=== PATIENT | male | born 1955 | race Caucasian/White ===

== ENCOUNTER 2016-09-06 12:57 | Observation (INO) | payer MEDICARE ==
--- NOTE | 2016-09-06 13:59 | ED ---
General Adult HPI - General Chief complaint: Abdominal Pain Stated complaint: abd pain Source: patient, RN notes reviewed, old records reviewed Mode of arrival: wheelchair - History of Present Illness Initial comments: Chief complaint history of present illness a 60-year-old male who is been in the emergency room several times because of acute alcohol intoxication. He reports years ago he had an episode of renal shutdown. He states he feels as though his kidneys have quit today. Patient was just in hospital the past 36 hours and review of the labs on that day showed a normal BUN and creatinine and GFR. - Related Data Home Medications Medication Instructions Recorded Confirmed Atorvastatin [Lipitor] 10 mg PO HS 08/11/16 09/06/16 Previous Rx's Medication Instructions Recorded Metoprolol Tartrate [Lopressor] 25 mg PO BID #30 tab 08/12/16 Collagenase [Santyl] 1 applic TOPICAL DAILY #1 tube 08/13/16 Escitalopram [Lexapro] 10 mg PO DAILY #30 tablet 08/13/16 Lisinopril [Zestril] 10 mg PO DAILY tab 08/13/16 Omeprazole [PriLOSEC] 40 mg PO QAM #30 capsule.dr 08/13/16 traMADol HCl [Ultram] 50 mg PO QID PRN #0 tab 08/13/16 Doxycycline Hyclate 100 mg PO BID #10 tab 08/28/16 Thiamine [Vitamin B-1] 100 mg PO DAILY #30 tablet 08/28/16 amLODIPine [Norvasc] 5 mg PO DAILY #30 tab 08/28/16 Mag Hydrox/Al Hydrox/Simeth 30 ml PO TID 30 Days 08/31/16 [Maalox] Folic Acid 1 mg PO DAILY #30 tablet 09/04/16 Allergies Allergy/AdvReac Type Severity Reaction Status Date / Time No Known Allergies Allergy Verified 09/06/16 13:34 Review of Systems ROS Statement: Those systems with pertinent positive or pertinent negative responses have been documented in the HPI. Review of systems; patient reports she's not having anything to drink for the past 2 days. Eyes any seizures or shakes. Declines any medication on discharge that will help with withdrawal. Eyes any headache. States he has some discomfort to his right anterior chest wall with palpation. No nausea no vomiting no diarrhea at this time. Denies falling. All systems reviewed. Past medical problems significant for heart disease, alcoholism, I disorder, hypertension, hyperlipidemia, previous MS, chronic kidney disease, surgeries appendectomy and back surgery, left shoulder surgery and coronary bypass.. Also has a history of depression. Chronic alcohol abuse. ROS Other: All systems not noted in ROS Statement are negative. Past Medical History Past Medical History: Coronary Artery Disease (CAD), Eye Disorder, Hyperlipidemia, Hypertension, Myocardial Infarction (MS), Renal Disease Additional Past Medical History / Comment(s): Alcoholism, CKD stage II or III, gastritis, chronic cervical and back pain, R eye injury with surgery-limited sight. Last Myocardial Infarction Date:: june, History of Any Multi-Drug Resistant Organisms: None Reported Past Surgical History: Appendectomy, Back Surgery, Coronary Bypass/CABG, Orthopedic Surgery Additional Past Surgical History / Comment(s): L shoulder surgery, colonoscopy, R eye lens surgery due to injury. Per cardiology note from previous admission, patient ahd NSTEMI and cath with perforation of the RCA during PCI resulting in a single vessel bypass after pericardiocentesis-pt states he believes he had triple bypass. Past Anesthesia/Blood Transfusion Reactions: No Reported Reaction Past Psychological History: Depression Additional Psychological History / Comment(s): Pt currently is living with his son. He has a cane which he uses prn. He does not drive. He gets to [employer] by cab or his son takes him. Smoking Status: Current every day smoker Past Alcohol Use History: Daily Additional Past Alcohol Use History / Comment(s): Pt states he likes to drink a pint of vodka a day. He started smoking in 1969 and is a 1/2 ppd smoker. Past Drug Use History: Marijuana Additional Drug Use History / Comment(s): Pt states he smokes 1-2 joints per day for pain control. He states he has medical [employer] card. - Past Family History Father Family Medical History: Myocardial Infarction (MS) Additional Family Medical History / Comment(s): Father of a MS at the age of 71 yrs. Mother Family Medical History: Cancer Additional Family Medical History / Comment(s): Mother had breast cancer-bone cancer and at the age of 65 yrs. Course Vital Signs 09/06/16 09/06/16 09/06/16 13:05 13:59 15:40 Temperature 97.3 F L Pulse Rate 104 H 98 98 Respiratory 18 16 16 Rate Blood Pressure 107/84 109/81 119/92 O2 Sat by Pulse 100 100 100 Oximetry EKG Findings - EKG Comments: EKG Findings:: EKG was done and reviewed at 1537 showing normal sinus rhythm with minimal minimal voltage criteria for LVH, nonspecific ST-T wave changes. Rate 93 OK interval is 146 QRS [address] QT [address] Miramontes Medical Decision Making - Medical Decision Making Medical decision making patient white count 8.7015 hematocrit of 48, d-dimer and 0.3 for lower than it was 2 days ago. Potassium 5.1, patient's BUN/ creatinine available flow rate increased in the past 2 days currently BUN 29 creatinine 1.8 to the GFR 38. Glucose 100. AST ALT normal. Alk phos 157. Urine shows 16 whites and 1 red. Troponin 0.017. Unchanged over the last 3 draws over the past 2 days. Chest x-ray was done AP and lateral view radiologist findings are the heart is normal. Thoracic aorta is atheromatous. Lungs are clear consolidation. There is no heart failure. There are sternal wires. Bony thorax appears intact. Impression no acute cardiopulmonary disease. There is minimal scarring the lingula left upper lobe. No change. As read by Dr. Gallego The patient has a continued complaint of feeling like his kidneys aren't working. Today's kidney function are significantly different with acute on chronic renal failure. Patient be admitted for observation. - Lab Data Result diagrams: 09/06/16 13:55 09/06/16 13:55 Lab Results 09/06/16 09/06/16 09/06/16 Range/Units 13:55 13:55 13:55 WBC 8.7 (3.8-10.6) k/uL RBC 5.25 (4.30-5.90) m/uL Hgb 15.5 (13.0-17.5) gm/dL Hct 48.1 (39.0-53.0) % MCV 91.6 (80.0-100.0) fL MCH 29.6 (25.0-35.0) pg MCHC 32.3 (31.0-37.0) g/dL RDW 14.6 (11.5-15.5) % Plt Count 403 (150-450) k/uL Neutrophils % 70 % Lymphocytes % 21 % Monocytes % 6 % Eosinophils % 1 % Basophils % 0 % Neutrophils # 6.0 (1.3-7.7) k/uL Lymphocytes # 1.8 (1.0-4.8) k/uL Monocytes # 0.5 (0-1.0) k/uL Eosinophils # 0.1 (0-0.7) k/uL Basophils # 0.0 (0-0.2) k/uL D-Dimer (<0.60) mg/L FEU Sodium 138 (137-145) mmol/L Potassium 5.1 (3.5-5.1) mmol/L Chloride 98 (98-107) mmol/L Carbon Dioxide 20 L (22-30) mmol/L Anion Gap 20 mmol/L BUN 29 H (9-20) mg/dL Creatinine 1.82 H (0.66-1.25) mg/dL Est GFR (MDRD) Af Amer 46 (>60 ml/min/1.73 sqM) Est GFR (MDRD) Non-Af 38 (>60 ml/min/1.73 sqM) Glucose 100 H (74-99) mg/dL Calcium 10.1 (8.4-10.2) mg/dL Total Bilirubin 0.9 (0.2-1.3) mg/dL AST 70 H (17-59) U/L ALT 77 H (21-72) U/L Alkaline Phosphatase 157 H (38-126) U/L Troponin I 0.017 (0.000-0.034) ng/mL Total Protein 8.6 H (6.3-8.2) g/dL Albumin 4.7 (3.5-5.0) g/dL Urine Color Urine Appearance (Clear) Urine pH (5.0-8.0) Ur Specific [place] (1.001-1.035) Urine Protein (Negative) Urine Glucose (UA) (Negative) Urine Ketones (Negative) Urine Blood (Negative) Urine Nitrate (Negative) Urine Bilirubin (Negative) Urine Urobilinogen (<2.0) mg/dL Ur Leukocyte Esterase (Negative) Urine RBC (0-5) /hpf Urine WBC (0-5) /hpf Ur Squamous Epith Cells (0-4) /hpf Hyaline Casts (0-2) /lpf Urine Mucus (None) /hpf 09/06/16 09/06/16 Range/Units 13:55 14:21 WBC (3.8-10.6) k/uL RBC (4.30-5.90) m/uL Hgb (13.0-17.5) gm/dL Hct (39.0-53.0) % MCV (80.0-100.0) fL MCH (25.0-35.0) pg MCHC (31.0-37.0) g/dL RDW (11.5-15.5) % Plt Count (150-450) k/uL Neutrophils % % Lymphocytes % % Monocytes % % Eosinophils % % Basophils % % Neutrophils # (1.3-7.7) k/uL Lymphocytes # (1.0-4.8) k/uL Monocytes # (0-1.0) k/uL Eosinophils # (0-0.7) k/uL Basophils # (0-0.2) k/uL D-Dimer 1.34 H (<0.60) mg/L FEU Sodium (137-145) mmol/L Potassium (3.5-5.1) mmol/L Chloride (98-107) mmol/L Carbon Dioxide (22-30) mmol/L Anion Gap mmol/L BUN (9-20) mg/dL Creatinine (0.66-1.25) mg/dL Est GFR (MDRD) Af Amer (>60 ml/min/1.73 sqM) Est GFR (MDRD) Non-Af (>60 ml/min/1.73 sqM) Glucose (74-99) mg/dL Calcium (8.4-10.2) mg/dL Total Bilirubin (0.2-1.3) mg/dL AST (17-59) U/L ALT (21-72) U/L Alkaline Phosphatase (38-126) U/L Troponin I (0.000-0.034) ng/mL Total Protein (6.3-8.2) g/dL Albumin (3.5-5.0) g/dL Urine Color Yellow Urine Appearance Cloudy (Clear) Urine pH 5.5 (5.0-8.0) Ur Specific [place] 1.013 (1.001-1.035) Urine Protein 1+ H (Negative) Urine Glucose (UA) Negative (Negative) Urine Ketones Trace H (Negative) Urine Blood Negative (Negative) Urine Nitrate Negative (Negative) Urine Bilirubin Negative (Negative) Urine Urobilinogen <2.0 (<2.0) mg/dL Ur Leukocyte Esterase Negative (Negative) Urine RBC 1 (0-5) /hpf Urine WBC 16 H (0-5) /hpf Ur Squamous Epith Cells <1 (0-4) /hpf Hyaline Casts 5 H (0-2) /lpf Urine Mucus Rare H (None) /hpf Disposition Clinical Impression: Acute on chronic renal failure, Alcoholism, Atypical chest pain Disposition: ADMITTED IP TO THIS HOSP Condition: Fair
[2016-09-06 14:12] LABS: Basophils % (A) 0 %; CH 29.9; CHCM 32.7; Eosinophils # (A) 0.1 k/uL (0-0.7); Eosinophils % (A) 1 %; HCT 48.1 % (39.0-53.0); HGB 15.5 gm/dL (13.0-17.5); Luc # (Auto) 0.24; Luc % (Auto) 3; Lymphocytes # (A) 1.8 k/uL (1.0-4.8); Lymphocytes % (A) 21 %; MCH 29.6 pg (25.0-35.0); MCHC 32.3 g/dL (31.0-37.0); MCV 91.6 fL (80.0-100.0); Mean Platelet Volume 6.9; Monocytes # (A) 0.5 k/uL (0-1.0); Monocytes % (A) 6 %; Neutrophils % (A) 70 %; RBC 5.25 m/uL (4.30-5.90); RDW 14.6 % (11.5-15.5); WBC 8.7 k/uL (3.8-10.6); WBC (Perox) 8.69
[2016-09-06 14:22] LABS: Calcium 10.1 mg/dL (8.4-10.2); Total Bilirubin 0.9 mg/dL (0.2-1.3); Total Protein 8.6 g/dL (6.3-8.2)
[2016-09-06 14:27] LABS: Potassium 5.1 mmol/L (3.5-5.1)
[2016-09-06 14:40] LABS: Appearance,Urine Cloudy (Clear); Bilirubin,Urine Negative (Negative); Glucose,Urine (UA) Negative (Negative); Ketones,Urine Trace (Negative); Leukocyte Esterase,Urine Negative (Negative); Mucus,Urine Rare /hpf; Nitrite,Urine Negative (Negative); PH, Urine 5.5 (5.0-8.0); Particle Count 3191; Protein,Urine 1+ (Negative); RBC,Urine 1 /hpf (0-5); Specific Gravity,Urine 1.013 (1.001-1.035); Squamous Epithelial Cell,Urine <1 /hpf (0-4); UA Billing (MACRO vs. MICRO) MICRO; Urobilinogen,Urine <2.0 mg/dL (<2.0); WBC,Urine 16 /hpf (0-5)
[2016-09-06] MEDS ORDERED: HYDROmorphone 1 MG/ML 1 ML SYRINGE IVP STA (15:31)
--- NOTE | 2016-09-06 15:59 | XR ---
EXAMINATION TYPE: XR chest 2V DATE OF EXAM: 09/06/2016 3:55 PM COMPARISON: 09/04/2016 HISTORY: Chest pain TECHNIQUE: Frontal and lateral views of the chest are obtained. FINDINGS: Heart is normal. Thoracic aorta is atheromatous. Lungs are clear of consolidation. There i s no heart failure. There are sternal wires. Bony thorax appears intact. IMPRESSION: No active cardiopulmonary disease. There is minimal scarring in the lingula left upper l obe. No change.
[2016-09-06] MEDS ORDERED: NALOXONE 0.4 MG/ML 1 ML VIAL IV PRN (16:05)
[2016-09-06] MEDS: SODIUM CHLORIDE 0.9% 1,000 ML IV SCH (18:01)
[2016-09-06] MEDS: HYDROmorphone 1 MG/ML 1 ML SYRINGE IV PRN ×2 (18:37→22:26)
[2016-09-06] MEDS: ATORVASTATIN 10 MG TAB PO SCH (21:48)
[2016-09-06] MEDS: HYDROcodone/APAP 7.5-325MG 1 EACH TAB PO PRN (21:48)
[2016-09-06] MEDS: FAMOTIDINE 20 MG TAB PO SCH (21:49)
[2016-09-06] MEDS: MAG HYDROX/AL HYDROX/SIMETH 30 ML CUP PO SCH (21:49)
[2016-09-06] MEDS: METOPROLOL TARTRATE 25 MG TAB PO SCH (21:49)
[2016-09-06] MEDS: NICOTINE 14MG/24HR PATCH TRANSDERM SCH (22:26)
[2016-09-07] MEDS: HYDROmorphone 1 MG/ML 1 ML SYRINGE IV PRN (02:52)
[2016-09-07] MEDS: SODIUM CHLORIDE 0.9% 1,000 ML IV SCH ×2 (05:57→17:57)
[2016-09-07] MEDS: COLLAGENASE 250 UNIT/GM OINTMENT 30 GM TUBE TOPICAL SCH (09:13)
[2016-09-07] MEDS: MAG HYDROX/AL HYDROX/SIMETH 30 ML CUP PO SCH ×3 (09:14→21:03)
[2016-09-07] MEDS: amLODIPine 5 MG TAB PO SCH (09:14)
[2016-09-07] MEDS: METOPROLOL TARTRATE 25 MG TAB PO SCH ×2 (09:14→21:03)
[2016-09-07] MEDS: FAMOTIDINE 20 MG TAB PO SCH (09:14)
[2016-09-07] MEDS: LISINOPRIL 10 MG TAB PO SCH (09:14)
[2016-09-07] MEDS: ESCITALOPRAM 10 MG TAB PO SCH (09:14)
[2016-09-07] MEDS: HYDROcodone/APAP 7.5-325MG 1 EACH TAB PO PRN ×3 (09:15→23:47)
[2016-09-07] MEDS ORDERED: LORazepam 2 MG/ML SYRINGE IV PRN ×3 (12:22)
[2016-09-07] MEDS: THIAMINE 100 MG TAB PO SCH (12:36)
[2016-09-07] MEDS: FOLIC ACID 1 MG TAB PO SCH (12:36)
[2016-09-07 14:00] LABS: Basophils % (A) 0 %; CH 29.7; CHCM 31.7; Eosinophils # (A) 0.1 k/uL (0-0.7); Eosinophils % (A) 1 %; HDW 2.54; HGB 13.2 gm/dL (13.0-17.5); Luc # (Auto) 0.13; Luc % (Auto) 2; Lymphocytes # (A) 1.2 k/uL (1.0-4.8); Lymphocytes % (A) 16 %; MCH 29.5 pg (25.0-35.0); MCHC 31.5 g/dL (31.0-37.0); MCV 93.6 fL (80.0-100.0); Mean Platelet Volume 7.1; Monocytes # (A) 0.4 k/uL (0-1.0); Monocytes % (A) 5 %; Neutrophils # (A) 6.1 k/uL (1.3-7.7); Neutrophils % (A) 76 %; RBC 4.48 m/uL (4.30-5.90); RDW 14.6 % (11.5-15.5); WBC 7.9 k/uL (3.8-10.6); WBC (Perox) 8.22
[2016-09-07 14:16] LABS: Anion Gap 12 mmol/L; Blood Urea Nitrogen 31 mg/dL (9-20); Calcium 9.4 mg/dL (8.4-10.2); Carbon Dioxide 27 mmol/L (22-30); Chloride 100 mmol/L (98-107); Glucose 136 mg/dL (74-99); Non-African American GFR(MDRD) 53 (>60 ml/min/1.73 sqM); Potassium 4.5 mmol/L (3.5-5.1); Sodium 139 mmol/L (137-145)
[2016-09-07] MEDS ORDERED: SODIUM CHLORIDE 0.45% 1,000 ML IV SCH (15:30)
[2016-09-07] MEDS: NICOTINE 14MG/24HR PATCH TRANSDERM SCH (17:58)
--- NOTE | 2016-09-07 20:01 | CONS ---
DATE OF CONSULTATION: REASON FOR CONSULT: Renal failure. HISTORY OF PRESENT ILLNESS: Patient is a 60-year-old white male who was admitted to the hospital with complaints of weakness. He stated he had not had significant urine output and he was concerned about renal failure as he did have a prior history of renal failure during hospitalization. He also has a prior history of EtOH abuse. Blood pressure on admission was at 107/84 with heart rate of 104 per minute. Patient has been was on EULOGIO inhibitors at home. He did admit to occasional use of NSAIDs. His serum creatinine was at 1.82 mg/dL on initial admission. He is currently maintained on IV fluids and his creatinine is down to 1.3 now. PAST MEDICAL HISTORY: Hypertension, history of EtOH abuse, gastroesophageal reflux disease, coronary artery disease, hyperlipidemia, PAST SURGICAL HISTORY: Cardiac catheterization, coronary artery bypass surgery which resulted after cardiac cath with perforation of the RCA during PCI. SOCIAL HISTORY: Positive for alcohol abuse, smoking as well as marijuana use. REVIEW OF SYSTEMS: As per HPI. Other systems negative. On examination, the patient is comfortable, awake. He is not in any acute distress. Blood pressure is 109/86, heart rate 65 per minute. He is afebrile. Examination of the heart S1 and S2. Examination of the lungs: Bilateral breath sounds are heard. ABDOMEN: Soft, nontender. Examination of lower extremities show no significant edema. Labs show sodium 139, potassium 4.5, serum creatinine down to 1.37. Hemoglobin 13.2. UA shows 1+ protein, trace ketones, no blood is noted. Previous creatinine had been as low as 1.1 mg/dL on . ASSESSMENT: 1. Acute kidney injury; appears to be prerenal. Patient's blood pressure had been running high. He is currently maintained on EULOGIO inhibitors, which we can continue since renal function has improved; however, most recent blood pressure was on the lower side. If he remains low then we will need to decrease or hold the lisinopril. Serum creatinine is down to 1.3 from 1.8 mg/dL. Previous creatinine was 1.1 on 2016. 2. Hypertension, currently improving, possibly an element of DTs as well. 3. Dyslipidemia. 4. Coronary artery disease. PLAN: Recheck labs in the a.m., continue IV fluids. May continue with the EULOGIO inhibitors for now. Thank you for this consultation. Will continue to follow the patient with you during his hospitalization.
[2016-09-07] MEDS ORDERED: ASPIRIN 81 MG CHEW PO SCH (21:00)
[2016-09-07] MEDS: ATORVASTATIN 10 MG TAB PO SCH (21:03)
[2016-09-07] MEDS: HYDROmorphone 1 MG/ML 1 ML SYRINGE IVP PRN (21:03)
[2016-09-08] MEDS: HYDROmorphone 1 MG/ML 1 ML SYRINGE IVP PRN ×4 (01:18→13:44)
[2016-09-08] MEDS: SODIUM CHLORIDE 0.9% 1,000 ML IV SCH (02:48)
[2016-09-08 08:01] VITALS: RESP 18
[2016-09-08] MEDS: amLODIPine 5 MG TAB PO SCH (08:44)
[2016-09-08] MEDS: LISINOPRIL 10 MG TAB PO SCH (08:44)
[2016-09-08] MEDS: ESCITALOPRAM 10 MG TAB PO SCH (08:44)
[2016-09-08] MEDS: METOPROLOL TARTRATE 25 MG TAB PO SCH (08:45)
[2016-09-08] MEDS: COLLAGENASE 250 UNIT/GM OINTMENT 30 GM TUBE TOPICAL SCH (08:45)
[2016-09-08] MEDS: MAG HYDROX/AL HYDROX/SIMETH 30 ML CUP PO SCH ×2 (08:45→16:42)
[2016-09-08] MEDS: NICOTINE 14MG/24HR PATCH TRANSDERM SCH (08:46)
[2016-09-08] MEDS ORDERED: FAMOTIDINE 20 MG TAB PO SCH ×2 (09:00→21:00)
--- NOTE | 2016-09-08 10:50 | HP ---
CHIEF COMPLAINT: Abdominal pain. Mr. Macias is a 60-year-old man with a known history of hypertension, coronary artery disease, status post coronary artery bypass graft in June 2016 and alcohol abuse admitted to the hospital with acute alcohol intoxication. Patient felt generalized weakness and thought he had renal failure and had similar symptoms from when he had renal failure in the hospital. Patient was found to have acute kidney injury and was admitted to the hospital for further evaluation. Nephrology has been consulted as well. He did not lose consciousness. No fever. No chills. RESPIRATORY: No cough or sputum production. CARDIOVASCULAR: No chest pain or shortness of breath. ABDOMEN: No nausea, vomiting or abdominal pain. GENITOURINARY: Negative. ENDOCRINE: Negative. PSYCHIATRIC: Negative. SKIN: Negative. All other 14-point review of systems negative except as above. PAST MEDICAL HISTORY: Coronary artery disease, alcohol abuse, CKD stage 3, hyperlipidemia, hypertension, history of FL, history of gastritis, chronic cervical and back pain, right eye injury surgery, limited sight. PAST SURGICAL HISTORY: Back surgery, coronary artery bypass graft, orthopedic surgery, left shoulder surgery, colonoscopy, right eye lens surgery due to injury, history of NSTEMI and a cath with perforation of the RCA during [employer], resulting in a single-vessel bypass after pericardial centesis. Patient says he believes he had triple bypass. PSYCHOSOCIAL HISTORY: Depression, shortness of breath and currently an everyday smoker. He says he likes to drink a pint of vodka a day. He started smoking in 1969 and is 1/2 pack per day smoker. Patient does use marijuana, smokes 1 to 2 joints per day for pain control. He states he has a medical marijuana card. FAMILY HISTORY: Father had FL, of [place] at the age of 71. Mother had cancer and breast cancer and lung cancer and at the age of 65 years. HOME MEDICATIONS: 1. Atorvastatin. 2. Metoprolol. 3. Collagenase. 4. Lexapro. 5. Lisinopril. 6. Omeprazole. 7. Tramadol. 8. Doxycycline. 9. Thiamine. 10. Amlodipine. 11. Maalox and 12. Folic acid. No known drug allergies. PHYSICAL EXAMINATION: A 60-year-old man lying in the bed; awake, alert, oriented x3, appears to be in no apparent distress. VITALS: Blood pressure 138/88, pulse is 78, respiratory rate of 16, temperature afebrile, pulse ox 98% on room air. HEENT: Atraumatic, normocephalic. NECK: Supple. No JVD. CVS: S1, S2 heard. No murmur. No gallop. No rub. LUNGS: Bilateral air entry is present. No wheezing. No crackles. Nonlabored breathing. Abdomen is soft, nontender. Bowel sounds present. STAFF SERVICES MANAGER: Awake, alert, oriented x3. No focal neurologic deficits. Cranial nerves grossly intact. EXTREMITIES: No edema. Pulses palpable bilaterally. No clubbing. No cyanosis. PSYCHIATRIC: Cooperative. LABORATORY DATA: WBC 8.7, hemoglobin of 13.5, platelets are 403. D-dimer is 1.34. Sodium 138, potassium 5.1, chloride 98, bicarb is 20, BUN 29, creatinine 1.82. Alk phos 157, AST 70, ALT 77. Total protein 8.6. Urinalysis is negative. CHEST X-RAY: No active cardiopulmonary disease. There is minimal scarring in the lingula. Left upper lobe no change. EKG: Normal sinus rhythm. Urine culture: No growth. IMPRESSION: 1. Acute kidney injury, most likely prerenal. 2. Acute on chronic kidney disease stage 3. 3. Alcohol abuse with possible alcohol withdrawal symptoms. 4. Uncontrolled hypertension, likely due to withdrawals, improved now. 5. Hypertension. 6. History of coronary artery bypass graft. 7. Atypical chest pain. Rule out acute coronary syndrome. 8. History of gastritis. 9. Right eye injury with right eye surgery and limited sight. 10. Chronic back pain and back surgery, currently on medical marijuana card. DISCUSSION AND PLAN: A 60-year-old male admitted to the hospital with a generalized weakness and found to acute kidney injury, most likely prerenal. Will continue with hydration and continue with the current management. Titrate blood pressure medications and follow up closely. Continue with the thiamine and folic acid. Nephrology has been consulted. Further recommendation based on the clinical course. Patient was counseled about alcohol abuse.
[2016-09-08 12:15] VITALS: BP 158/105; PULSE 66; TEMP 98
[2016-09-08] MEDS: HYDROcodone/APAP 7.5-325MG 1 EACH TAB PO PRN (12:31)
[2016-09-08] MEDS: FOLIC ACID 1 MG TAB PO SCH (12:36)
[2016-09-08] MEDS: THIAMINE 100 MG TAB PO SCH (12:36)
[2016-09-08 12:55] LABS: Anion Gap 11 mmol/L; Blood Urea Nitrogen 27 mg/dL (9-20); Calcium 9.2 mg/dL (8.4-10.2); Carbon Dioxide 26 mmol/L (22-30); Chloride 98 mmol/L (98-107); Glucose 108 mg/dL (74-99); Non-African American GFR(MDRD) >60 (>60 ml/min/1.73 sqM); Potassium 4.7 mmol/L (3.5-5.1); Sodium 135 mmol/L (137-145)
--- NOTE | 2016-09-08 13:31 | US ---
EXAMINATION TYPE: US kidneys/renal and bladder DATE OF EXAM: 09/08/2016 11:16 AM COMPARISON: NONE CLINICAL HISTORY: US. Renal insufficiency EXAM MEASUREMENTS: Right Kidney: 10.8 x 4.2 x 4.1cm Left Kidney: 9.4 x 4.7 x 4.4cm ANATOMY: TECHNOLOGIST IMPRESSION: Right Kidney: No hydronephrosis seen Left Kidney: cystic area = 1.4 x 1.4 x 1.3cm, limited evaluation due to overlying bowel Bladder: appears wnl Bilateral Jets seen: no IMPRESSION: 1. Left renal cyst. Normal Values: Renal Length = 9 - 12cm Bladder Wall: < 0.3cm
--- NOTE | 2016-09-25 06:49 | DS ---
DATE OF ADMISSION: 09/06/2016 DATE OF DISCHARGE: 09/08/2016 DISCHARGE DIAGNOSES: 1. Acute on chronic kidney disease, stage III, most likely prerenal, improved now. 2. Acute alcohol withdrawal symptoms, improved. 3. Uncontrolled hypertension, likely due to withdrawal symptoms, improved now. 4. Hypertension. 5. History of coronary artery disease, status post bypass graft. 6. Atypical chest pain, ruled out acute coronary syndrome. 7. History of gastritis. 8. Right eye injury with right eye surgery and limited sight. 9. Chronic back pain and back surgery, currently on medical marijuana card. HOSPITAL COURSE: Mr. Macias is a 60-year-old man with a known history of above medical problems admitted to the hospital with acute alcohol withdrawal symptoms and found to have acute on chronic kidney disease stage III, secondary to prerenal. The patient did improve with IV hydration and otherwise patient was monitored for alcohol withdrawal symptoms, which are in stable condition now. Ultrasound ( ) showed left renal cyst, no obstruction noted. Otherwise, his renal function improved with improved creatinine level from 1.37 to 1.19 and serial troponins and EKG have been negative. Patient will be discharged home and follow up with primary care physician in 1 to 3 days. DISCHARGE PHYSICAL EXAMINATION: A 60-year-old male lying in bed comfortably, awake, alert, oriented x3 appears to be in no apparent distress. VITALS: Blood pressure is 158/105, pulse is 68, respiration 18, temperature afebrile, pulse ox 99% on room air. LABORATORY DATA: Reviewed. Discharge physical examination done. Discharge medications include: 1. Collagenase one application topical daily. 2. Lexapro 10 mg p.o. daily. 3. Zestril 10 mg p.o. daily. 4. Omeprazole 40 mg p.o. q.a.m. 5. Thiamine 100 mg p.o. daily. 6. Maalox 30 mL p.o. t.i.d. p.r.n. for gastric distress. 7. Folic acid 1 mg p.o. daily. 8. Aspirin 81 mg p.o. daily. 9. Atorvastatin 40 mg p.o. at bedtime. 10. Plavix 75 mg p.o. daily. 11. Metoprolol 50 mg p.o. b.i.d. 12. Tramadol 50 mg p.o. q.4 hourly p.r.n. for pain. Patient will be discharged home in stable condition. Activity as tolerated. Follow with primary care physician in 1 to 2 days. Heart healthy diet.
== END 2016-09-08 15:15 | disposition home or self-care (01) ==
LOC: EC 12:57 → 3OBS 16:05
PROVIDERS: ADMIT Internal Medicine; ATTEND Internal Medicine
DX: I12.9 Hypertensive chronic kidney disease with stage 1 through stage 4 chronic kidney disease, or unspecified chronic kidney disease (principal); N18.3 Chronic kidney disease, stage 3 (moderate); N17.9 Acute kidney failure, unspecified; F10.239 Alcohol dependence with withdrawal, unspecified; I25.10 Atherosclerotic heart disease of native coronary artery without angina pectoris; R07.89 Other chest pain; K29.70 Gastritis, unspecified, without bleeding; G89.29 Other chronic pain; M54.9 Dorsalgia, unspecified; F17.200 Nicotine dependence, unspecified, uncomplicated; E78.5 Hyperlipidemia, unspecified; N28.1 Cyst of kidney, acquired; H54.51 Low vision, right eye, normal vision left eye; F32.9 Major depressive disorder, single episode, unspecified; F12.90 Cannabis use, unspecified, uncomplicated; K21.9 Gastro-esophageal reflux disease without esophagitis; I25.2 Old myocardial infarction; Z95.1 Presence of aortocoronary bypass graft; Z79.899 Other long term (current) drug therapy; Z82.49 Family history of ischemic heart disease and other diseases of the circulatory system; Z80.3 Family history of malignant neoplasm of breast; Z80.8 Family history of malignant neoplasm of other organs or systems
CPT/HCPCS: 99285 ×2; 96374; 36415; 93005; 97161; 85379; 80053; 80048 ×2; 84484 ×2; 85025 ×2; 81001; 87086; 71020; 76770; G0378 ×3; S4990 ×3; J2060; J1170 ×3; 96361; 96375; 96376

== ENCOUNTER 2016-09-15 19:47 | Emergency (ER) | payer MEDICARE ==
[2016-09-15 19:58] VITALS: RESP 20
--- NOTE | 2016-09-15 20:10 | ED ---
General Adult HPI - General Chief complaint: Chest Pain Stated complaint: Chest Pain Time Seen by Provider: 09/15/16 19:50 Source: patient, EMS, RN notes reviewed, old records reviewed Mode of arrival: EMS Limitations: no limitations - History of Present Illness Initial comments: This is a 6-year-old male the ER for evaluation of chest pain. Patient is well- known to this facility for recent and recurrent ER visits for chest pain. Multiple recent admissions for chest pain. Patient does have history of heart disease, patient's also has a strong history of alcohol as an. Patient coming in for evaluation of chest pain, severe chest pain, severe abdominal pain, nausea. Patient is belligerent on questioning, uncooperative on exam - Related Data Home Medications Medication Instructions Recorded Confirmed Atorvastatin [Lipitor] 10 mg PO HS 08/11/16 09/15/16 traMADol HCl [Ultram] 50 mg PO QID PRN 09/15/16 09/15/16 Previous Rx's Medication Instructions Recorded Metoprolol Tartrate [Lopressor] 25 mg PO BID #30 tab 08/12/16 Collagenase [Santyl] 1 applic TOPICAL DAILY #1 tube 08/13/16 Escitalopram [Lexapro] 10 mg PO DAILY #30 tablet 08/13/16 Lisinopril [Zestril] 10 mg PO DAILY tab 08/13/16 Omeprazole [PriLOSEC] 40 mg PO QAM #30 capsule. 08/13/16 Thiamine [Vitamin B-1] 100 mg PO DAILY #30 tablet 08/28/16 amLODIPine [Norvasc] 5 mg PO DAILY #30 tab 08/28/16 Mag Hydrox/Al Hydrox/Simeth 30 ml PO TID 30 Days 08/31/16 [Maalox] Folic Acid 1 mg PO DAILY #30 tablet 09/04/16 Aspirin EC [Ecotrin Low Dose] 81 mg PO DAILY #1 tablet. 09/07/16 Allergies Allergy/AdvReac Type Severity Reaction Status Date / Time No Known Allergies Allergy Verified 09/15/16 20:20 Review of Systems ROS Statement: Those systems with pertinent positive or pertinent negative responses have been documented in the HPI. ROS Other: All systems not noted in ROS Statement are negative. Past Medical History Past Medical History: Coronary Artery Disease (CAD), Eye Disorder, Hyperlipidemia, Hypertension, Myocardial Infarction ([place]), Renal Disease Additional Past Medical History / Comment(s): Alcoholism, CKD stage II or III, gastritis, chronic cervical and back pain, R eye injury with surgery-limited sight. Last Myocardial Infarction Date:: june, History of Any Multi-Drug Resistant Organisms: None Reported Past Surgical History: Appendectomy, Back Surgery, Coronary Bypass/CABG, Orthopedic Surgery Additional Past Surgical History / Comment(s): L shoulder surgery, colonoscopy, R eye lens surgery due to injury. Per cardiology note from previous admission, patient ahd NSTEMI and cath with perforation of the RCA during PCI resulting in a single vessel bypass after pericardiocentesis-pt states he believes he had triple bypass. Past Anesthesia/Blood Transfusion Reactions: No Reported Reaction Past Psychological History: Depression Additional Psychological History / Comment(s): Pt currently is living with his son. He has a cane which he uses prn. He does not drive. He gets to [employer] by cab or his son takes him. Smoking Status: Current every day smoker Past Alcohol Use History: Daily Additional Past Alcohol Use History / Comment(s): Pt states he likes to drink a pint of vodka a day. He started smoking in 1969 and is a 1/2 ppd smoker. Past Drug Use History: Marijuana Additional Drug Use History / Comment(s): Pt states he smokes 1-2 joints per day for pain control. He states he has medical [employer] card. - Past Family History Father Family Medical History: Myocardial Infarction ([place]) Additional Family Medical History / Comment(s): Father of a [place] at the age of 71 yrs. Mother Family Medical History: Cancer Additional Family Medical History / Comment(s): Mother had breast cancer-bone cancer and at the age of 65 yrs. General Exam Limitations: no limitations General appearance: alert, in no apparent distress, appears intoxicated Head exam: Present: atraumatic, normocephalic, normal inspection Eye exam: Present: normal appearance, PERRL, EOMI. Absent: scleral icterus, conjunctival injection, periorbital swelling ENT exam: Present: normal exam, mucous membranes moist Neck exam: Present: normal inspection. Absent: tenderness, meningismus, lymphadenopathy Respiratory exam: Present: normal lung sounds bilaterally. Absent: respiratory distress, wheezes, rales, rhonchi, stridor Cardiovascular Exam: Present: regular rate, normal rhythm, normal heart sounds. Absent: systolic murmur, diastolic murmur, rubs, gallop, clicks GI/Abdominal exam: Present: soft, normal bowel sounds. Absent: distended, tenderness, guarding, rebound, rigid Extremities exam: Present: normal inspection, full ROM, normal capillary refill. Absent: tenderness, pedal edema, joint swelling, calf tenderness Back exam: Present: normal inspection Neurological exam: Present: alert, oriented X3, CN II-XII intact Psychiatric exam: Present: normal affect, normal mood Skin exam: Present: warm, dry, intact, normal color. Absent: rash Course Vital Signs 09/15/16 19:52 Temperature 98.0 F Pulse Rate 93 Respiratory 20 Rate Blood Pressure 128/71 O2 Sat by Pulse 98 Oximetry - Reevaluation(s) Reevaluation #1: 09/15/16 21:30 Patient is intoxicated, we'll attempt to find patient ride home EKG Findings - EKG Comments: EKG Findings:: EKG shows normal sinus rhythm rate of 88, TN 136, crit 36, QTC 484 Medical Decision Making - Medical Decision Making 16 [facility] for evaluation of chest pain. Patient's EKG chest x-ray cardiac enzymes are negative. Patient can be discharged home - Lab Data Result diagrams: 09/15/16 20:20 09/15/16 20:20 Lab Results 09/15/16 09/15/16 09/15/16 Range/Units 20:20 20:20 20:20 WBC 5.4 (3.8-10.6) k/uL RBC 4.72 (4.30-5.90) m/uL Hgb 13.6 (13.0-17.5) gm/dL Hct 42.8 (39.0-53.0) % MCV 90.6 (80.0-100.0) fL MCH 28.7 (25.0-35.0) pg MCHC 31.7 (31.0-37.0) g/dL RDW 14.8 (11.5-15.5) % Plt Count 572 H (150-450) k/uL Neutrophils % 42 % Lymphocytes % 46 % Monocytes % 8 % Eosinophils % 1 % Basophils % 1 % Neutrophils # 2.2 (1.3-7.7) k/uL Lymphocytes # 2.5 (1.0-4.8) k/uL Monocytes # 0.4 (0-1.0) k/uL Eosinophils # 0.0 (0-0.7) k/uL Basophils # 0.0 (0-0.2) k/uL PT (9.0-12.0) sec INR (<1.1) APTT (22.0-30.0) sec Sodium 143 (137-145) mmol/L Potassium 4.8 (3.5-5.1) mmol/L Chloride 103 (98-107) mmol/L Carbon Dioxide 22 (22-30) mmol/L Anion Gap 18 mmol/L BUN 16 (9-20) mg/dL Creatinine 1.19 (0.66-1.25) mg/dL Est GFR (MDRD) Af Amer >60 (>60 ml/min/1.73 sqM) Est GFR (MDRD) Non-Af >60 (>60 ml/min/1.73 sqM) Glucose 83 (74-99) mg/dL Calcium 9.0 (8.4-10.2) mg/dL Magnesium 2.1 (1.6-2.3) mg/dL Total Bilirubin 0.5 (0.2-1.3) mg/dL AST 92 H (17-59) U/L ALT 69 (21-72) U/L Alkaline Phosphatase 113 (38-126) U/L Total Creatine Kinase 72 (55-170) U/L CK-MB (CK-2) 1.0 (0.0-2.4) ng/mL CK-MB (CK-2) Rel Index 1.4 Troponin I 0.021 (0.000-0.034) ng/mL Total Protein 7.8 (6.3-8.2) g/dL Albumin 4.4 (3.5-5.0) g/dL Lipase 231 (23-300) U/L Serum Alcohol 344 mg/dL 09/15/16 Range/Units 20:20 WBC (3.8-10.6) k/uL RBC (4.30-5.90) m/uL Hgb (13.0-17.5) gm/dL Hct (39.0-53.0) % MCV (80.0-100.0) fL MCH (25.0-35.0) pg MCHC (31.0-37.0) g/dL RDW (11.5-15.5) % Plt Count (150-450) k/uL Neutrophils % % Lymphocytes % % Monocytes % % Eosinophils % % Basophils % % Neutrophils # (1.3-7.7) k/uL Lymphocytes # (1.0-4.8) k/uL Monocytes # (0-1.0) k/uL Eosinophils # (0-0.7) k/uL Basophils # (0-0.2) k/uL PT 9.5 (9.0-12.0) sec INR 0.9 (<1.1) APTT 23.8 (22.0-30.0) sec Sodium (137-145) mmol/L Potassium (3.5-5.1) mmol/L Chloride (98-107) mmol/L Carbon Dioxide (22-30) mmol/L Anion Gap mmol/L BUN (9-20) mg/dL Creatinine (0.66-1.25) mg/dL Est GFR (MDRD) Af Amer (>60 ml/min/1.73 sqM) Est GFR (MDRD) Non-Af (>60 ml/min/1.73 sqM) Glucose (74-99) mg/dL Calcium (8.4-10.2) mg/dL Magnesium (1.6-2.3) mg/dL Total Bilirubin (0.2-1.3) mg/dL AST (17-59) U/L ALT (21-72) U/L Alkaline Phosphatase (38-126) U/L Total Creatine Kinase (55-170) U/L CK-MB (CK-2) (0.0-2.4) ng/mL CK-MB (CK-2) Rel Index Troponin I (0.000-0.034) ng/mL Total Protein (6.3-8.2) g/dL Albumin (3.5-5.0) g/dL Lipase (23-300) U/L Serum Alcohol mg/dL - Radiology Data Radiology results: report reviewed (Chest x-ray 2 view negative for acute disease), image reviewed Disposition Clinical Impression: Chest pain, Chronic pain, Alcohol intoxication Disposition: HOME SELF-CARE Condition: Good Instructions: Chest Pain (ED) Referrals: None,Stated [Primary Care Provider] - 1-2 days
[2016-09-15 20:37] LABS: Basophils % (A) 1 %; CH 29.8; Eosinophils % (A) 1 %; HCT 42.8 % (39.0-53.0); HDW 2.57; HGB 13.6 gm/dL (13.0-17.5); Luc # (Auto) 0.14; Luc % (Auto) 3; Lymphocytes # (A) 2.5 k/uL (1.0-4.8); Lymphocytes % (A) 46 %; MCH 28.7 pg (25.0-35.0); MCHC 31.7 g/dL (31.0-37.0); MCV 90.6 fL (80.0-100.0); Mean Platelet Volume 7.1; Monocytes # (A) 0.4 k/uL (0-1.0); Monocytes % (A) 8 %; Neutrophils # (A) 2.2 k/uL (1.3-7.7); Neutrophils % (A) 42 %; RBC 4.72 m/uL (4.30-5.90); RDW 14.8 % (11.5-15.5); WBC 5.4 k/uL (3.8-10.6); WBC (Perox) 5.36
[2016-09-15 20:50] LABS: ALT 69 U/L (21-72); AST 92 U/L (17-59); Alkaline Phosphatase 113 U/L (38-126); Anion Gap 18 mmol/L; Blood Urea Nitrogen 16 mg/dL (9-20); Carbon Dioxide 22 mmol/L (22-30); Chloride 103 mmol/L (98-107); Glucose 83 mg/dL (74-99); Magnesium 2.1 mg/dL (1.6-2.3); Non-African American GFR(MDRD) >60 (>60 ml/min/1.73 sqM); Potassium 4.8 mmol/L (3.5-5.1); Sodium 143 mmol/L (137-145); Total Bilirubin 0.5 mg/dL (0.2-1.3); Total Protein 7.8 g/dL (6.3-8.2)
[2016-09-15 20:51] LABS: INR 0.9 (<1.1); Prothrombin Time 9.5 sec (9.0-12.0)
[2016-09-15 20:52] LABS: Partial Thromboplastin Time 23.8 sec (22.0-30.0)
--- NOTE | 2016-09-15 20:52 | XR ---
EXAMINATION TYPE: XR chest 1V DATE OF EXAM: 09/15/2016 8:43 PM COMPARISON: 09/06/2016 HISTORY: Chest pain TECHNIQUE: Single frontal view of the chest is obtained. FINDINGS: There is no heart failure nor confluent pneumonic infiltrate. There are sternal wires. Cos tophrenic angles are clear. IMPRESSION: No active cardiopulmonary disease. Normal heart. No change.
[2016-09-15 21:00] LABS: Alcohol 344 mg/dL
[2016-09-15 21:06] LABS: Troponin I 0.021 ng/mL (0.000-0.034)
[2016-09-15 22:13] VITALS: BP 126/71; PULSE 78; TEMP 98.1
== END 2016-09-15 22:13 | disposition home or self-care (01) ==
LOC: EC 19:47
DX: R07.9 Chest pain, unspecified (principal); I10 Essential (primary) hypertension; I25.2 Old myocardial infarction; E78.5 Hyperlipidemia, unspecified; I25.10 Atherosclerotic heart disease of native coronary artery without angina pectoris; F32.9 Major depressive disorder, single episode, unspecified; F17.200 Nicotine dependence, unspecified, uncomplicated; F10.129 Alcohol abuse with intoxication, unspecified; Y90.8 Blood alcohol level of 240 mg/100 ml or more; Z95.1 Presence of aortocoronary bypass graft; Z79.82 Long term (current) use of aspirin; Z79.899 Other long term (current) drug therapy
CPT/HCPCS: 36415; 71010; 80053; 80320; 82550; 82553; 83690; 83735; 84484; 85025; 85610; 85730; 93005; 99285

== ENCOUNTER 2016-09-18 05:55 | Inpatient (IN) | payer MEDICARE ==
[2016-09-18] MEDS ORDERED: ASPIRIN 81 MG CHEW PO STA (06:21)
[2016-09-18] MEDS ORDERED: FAMOTIDINE 20 MG/2 ML VIAL IV STA (06:21)
[2016-09-18] MEDS ORDERED: NITROGLYCERIN OINT 1 INCH/GM PACKET TOPICAL STA (06:21)
--- NOTE | 2016-09-18 06:24 | ED ---
General Adult HPI - General Source: patient, EMS, RN notes reviewed Mode of arrival: EMS Limitations: no limitations <Wilmer Javier - Last Filed: 09/18/16 06:37> <Onesimo Mckinney - Last Filed: 09/18/16 11:35> - General Chief complaint: Chest Pain Stated complaint: chest pain Time Seen by Provider: 09/18/16 06:00 - History of Present Illness Initial comments: Patient is an intoxicated 60-year-old male presenting to the emergency department with chest discomfort. Patient states symptoms have been present around 10 hours. Patient states it feels like his heart is pounding and has some discomfort as well. Patient has have some associated shortness of breath. Patient admits to drinking alcohol and does regularly drink a lot of alcohol. No nausea. No diaphoresis. Patient did have CABG in June. (Wilmer Javier) - Related Data Home Medications Medication Instructions Recorded Confirmed Atorvastatin [Lipitor] 10 mg PO HS 08/11/16 09/18/16 traMADol HCl [Ultram] 50 mg PO QID PRN 09/15/16 09/18/16 Previous Rx's Medication Instructions Recorded Metoprolol Tartrate [Lopressor] 25 mg PO BID #30 tab 08/12/16 Collagenase [Santyl] 1 applic TOPICAL DAILY #1 tube 08/13/16 Escitalopram [Lexapro] 10 mg PO DAILY #30 tablet 08/13/16 Lisinopril [Zestril] 10 mg PO DAILY tab 08/13/16 Omeprazole [PriLOSEC] 40 mg PO QAM #30 capsule. 08/13/16 Thiamine [Vitamin B-1] 100 mg PO DAILY #30 tablet 08/28/16 amLODIPine [Norvasc] 5 mg PO DAILY #30 tab 08/28/16 Mag Hydrox/Al Hydrox/Simeth 30 ml PO TID 30 Days 08/31/16 [Maalox] Folic Acid 1 mg PO DAILY #30 tablet 09/04/16 Aspirin EC [Ecotrin Low Dose] 81 mg PO DAILY #1 tablet. 09/07/16 Allergies Allergy/AdvReac Type Severity Reaction Status Date / Time No Known Allergies Allergy Verified 09/18/16 08:50 Review of Systems ROS Other: All systems not noted in ROS Statement are negative. Constitutional: Denies: fever Eyes: Denies: eye pain ENT: Denies: ear pain Respiratory: Reports: dyspnea. Denies: cough Cardiovascular: Reports: chest pain, palpitations Endocrine: Reports: fatigue Gastrointestinal: Reports: abdominal pain (Chronic). Denies: nausea, vomiting Genitourinary: Denies: dysuria Musculoskeletal: Denies: back pain <Wilmer Javier - Last Filed: 09/18/16 06:37> ROS Other: All systems not noted in ROS Statement are negative. <CharleneOnesimo turcios - Last Filed: 09/18/16 11:35> ROS Statement: Those systems with pertinent positive or pertinent negative responses have been documented in the HPI. Past Medical History Past Medical History: Coronary Artery Disease (CAD), Eye Disorder, Hyperlipidemia, Hypertension, Myocardial Infarction ([place]), Renal Disease Additional Past Medical History / Comment(s): Alcoholism, CKD stage II or III, gastritis, chronic cervical and back pain, R eye injury with surgery-limited sight. Last Myocardial Infarction Date:: june, History of Any Multi-Drug Resistant Organisms: None Reported Past Surgical History: Appendectomy, Back Surgery, Coronary Bypass/CABG, Orthopedic Surgery Additional Past Surgical History / Comment(s): L shoulder surgery, colonoscopy, R eye lens surgery due to injury. Per cardiology note from previous admission, patient ahd NSTEMI and cath with perforation of the RCA during PCI resulting in a single vessel bypass after pericardiocentesis-pt states he believes he had triple bypass. Past Anesthesia/Blood Transfusion Reactions: No Reported Reaction Past Psychological History: Depression Additional Psychological History / Comment(s): Pt currently is living with his son. He has a cane which he uses prn. He does not drive. He gets to [employer] by cab or his son takes him. Smoking Status: Current every day smoker Past Alcohol Use History: Daily Additional Past Alcohol Use History / Comment(s): Pt states he likes to drink a pint of vodka a day. He started smoking in 1969 and is a 1/2 ppd smoker. Past Drug Use History: Marijuana Additional Drug Use History / Comment(s): Pt states he smokes 1-2 joints per day for pain control. He states he has medical [employer] card. - Past Family History Father Family Medical History: Myocardial Infarction ([place]) Additional Family Medical History / Comment(s): Father of a [place] at the age of 71 yrs. Mother Family Medical History: Cancer Additional Family Medical History / Comment(s): Mother had breast cancer-bone cancer and at the age of 65 yrs. <Wilmer Javier - Last Filed: 09/18/16 06:37> General Exam Limitations: no limitations General appearance: alert, in no apparent distress, appears intoxicated Head exam: Present: atraumatic Eye exam: Present: normal appearance ENT exam: Present: normal oropharynx Neck exam: Present: normal inspection Respiratory exam: Present: normal lung sounds bilaterally Cardiovascular Exam: Present: regular rate, normal rhythm GI/Abdominal exam: Present: soft, tenderness (Mild epigastric tenderness to palpation) Extremities exam: Present: normal inspection. Absent: pedal edema Neurological exam: Present: alert Psychiatric exam: Present: normal affect, normal mood Skin exam: Absent: rash <Wilmer Javier - Last Filed: 09/18/16 06:37> EKG Findings - EKG Comments: EKG Findings:: EKG shows normal sinus rhythm at 91. HI 162. QRS 86. QT 374. QTC 420. Normal axis. Normal QRS. Normal ST-T. <Wilmer Javier - Last Filed: 09/18/16 06:37> Medical Decision Making - Lab Data Result diagrams: 09/18/16 06:05 09/18/16 06:05 <Onesimo Mckinney - Last Filed: 09/18/16 11:35> - Lab Data Lab Results 09/18/16 09/18/16 09/18/16 Range/Units 06:05 06:05 06:05 WBC 6.2 (3.8-10.6) k/uL RBC 4.67 (4.30-5.90) m/uL Hgb 13.8 (13.0-17.5) gm/dL Hct 41.8 (39.0-53.0) % MCV 89.5 (80.0-100.0) fL MCH 29.6 (25.0-35.0) pg MCHC 33.0 (31.0-37.0) g/dL RDW 14.9 (11.5-15.5) % Plt Count 515 H (150-450) k/uL Neutrophils % 60 % Lymphocytes % 33 % Monocytes % 5 % Eosinophils % 0 % Basophils % 0 % Neutrophils # 3.7 (1.3-7.7) k/uL Lymphocytes # 2.0 (1.0-4.8) k/uL Monocytes # 0.3 (0-1.0) k/uL Eosinophils # 0.0 (0-0.7) k/uL Basophils # 0.0 (0-0.2) k/uL PT (9.0-12.0) sec INR (<1.1) APTT (22.0-30.0) sec Sodium 141 (137-145) mmol/L Potassium 4.3 (3.5-5.1) mmol/L Chloride 98 (98-107) mmol/L Carbon Dioxide 23 (22-30) mmol/L Anion Gap 20 mmol/L BUN 21 H (9-20) mg/dL Creatinine 1.19 (0.66-1.25) mg/dL Est GFR (MDRD) Af Amer >60 (>60 ml/min/1.73 sqM) Est GFR (MDRD) Non-Af >60 (>60 ml/min/1.73 sqM) Glucose 100 H (74-99) mg/dL Calcium 9.0 (8.4-10.2) mg/dL Magnesium 2.0 (1.6-2.3) mg/dL Total Bilirubin 0.7 (0.2-1.3) mg/dL AST 133 H (17-59) U/L ALT 91 H (21-72) U/L Alkaline Phosphatase 106 (38-126) U/L Total Creatine Kinase 99 (55-170) U/L CK-MB (CK-2) 1.1 (0.0-2.4) ng/mL CK-MB (CK-2) Rel Index 1.1 Troponin I 0.037 H* (0.000-0.034) ng/mL Total Protein 7.7 (6.3-8.2) g/dL Albumin 4.4 (3.5-5.0) g/dL Amylase 94 (30-110) U/L Lipase 286 (23-300) U/L Serum Alcohol 397 mg/dL 09/18/16 Range/Units 06:05 WBC (3.8-10.6) k/uL RBC (4.30-5.90) m/uL Hgb (13.0-17.5) gm/dL Hct (39.0-53.0) % MCV (80.0-100.0) fL MCH (25.0-35.0) pg MCHC (31.0-37.0) g/dL RDW (11.5-15.5) % Plt Count (150-450) k/uL Neutrophils % % Lymphocytes % % Monocytes % % Eosinophils % % Basophils % % Neutrophils # (1.3-7.7) k/uL Lymphocytes # (1.0-4.8) k/uL Monocytes # (0-1.0) k/uL Eosinophils # (0-0.7) k/uL Basophils # (0-0.2) k/uL PT 9.5 (9.0-12.0) sec INR 0.9 (<1.1) APTT 23.6 (22.0-30.0) sec Sodium (137-145) mmol/L Potassium (3.5-5.1) mmol/L Chloride (98-107) mmol/L Carbon Dioxide (22-30) mmol/L Anion Gap mmol/L BUN (9-20) mg/dL Creatinine (0.66-1.25) mg/dL Est GFR (MDRD) Af Amer (>60 ml/min/1.73 sqM) Est GFR (MDRD) Non-Af (>60 ml/min/1.73 sqM) Glucose (74-99) mg/dL Calcium (8.4-10.2) mg/dL Magnesium (1.6-2.3) mg/dL Total Bilirubin (0.2-1.3) mg/dL AST (17-59) U/L ALT (21-72) U/L Alkaline Phosphatase (38-126) U/L Total Creatine Kinase (55-170) U/L CK-MB (CK-2) (0.0-2.4) ng/mL CK-MB (CK-2) Rel Index Troponin I (0.000-0.034) ng/mL Total Protein (6.3-8.2) g/dL Albumin (3.5-5.0) g/dL Amylase (30-110) U/L Lipase (23-300) U/L Serum Alcohol mg/dL Disposition <Wilmer Javier - Last Filed: 09/18/16 06:37> <Onesimo Mckinney - Last Filed: 09/18/16 11:35> Clinical Impression: Chest pain, Alcohol intoxication Disposition: ADMITTED IP TO THIS HOSP Condition: Poor
[2016-09-18 06:30] LABS: Basophils % (A) 0 %; CH 30.2; CHCM 33.8; Eosinophils % (A) 0 %; HCT 41.8 % (39.0-53.0); HDW 2.49; HGB 13.8 gm/dL (13.0-17.5); Luc # (Auto) 0.11; Luc % (Auto) 2; Lymphocytes % (A) 33 %; MCH 29.6 pg (25.0-35.0); MCV 89.5 fL (80.0-100.0); Mean Platelet Volume 7.7; Monocytes # (A) 0.3 k/uL (0-1.0); Monocytes % (A) 5 %; Neutrophils # (A) 3.7 k/uL (1.3-7.7); Neutrophils % (A) 60 %; RBC 4.67 m/uL (4.30-5.90); RDW 14.9 % (11.5-15.5); WBC 6.2 k/uL (3.8-10.6); WBC (Perox) 5.93
[2016-09-18 06:38] LABS: INR 0.9 (<1.1); Partial Thromboplastin Time 23.6 sec (22.0-30.0); Prothrombin Time 9.5 sec (9.0-12.0)
[2016-09-18 06:46] LABS: ALT 91 U/L (21-72); AST 133 U/L (17-59); Alkaline Phosphatase 106 U/L (38-126); Amylase 94 U/L (30-110); Anion Gap 20 mmol/L; Blood Urea Nitrogen 21 mg/dL (9-20); Carbon Dioxide 23 mmol/L (22-30); Chloride 98 mmol/L (98-107); Glucose 100 mg/dL (74-99); Non-African American GFR(MDRD) >60 (>60 ml/min/1.73 sqM); Potassium 4.3 mmol/L (3.5-5.1); Sodium 141 mmol/L (137-145); Total Bilirubin 0.7 mg/dL (0.2-1.3); Total Protein 7.7 g/dL (6.3-8.2)
[2016-09-18 06:59] LABS: Alcohol 397 mg/dL
--- NOTE | 2016-09-18 07:03 | XR ---
EXAMINATION TYPE: XR abdomen 1V DATE OF EXAM: 09/18/2016 6:49 AM COMPARISON: 03/10/2016 HISTORY: Abdominal pain TECHNIQUE: 3 views FINDINGS: There is no sign of intestinal obstruction or pneumoperitoneum. Fecal pattern is normal. Th ere is no sign of a mass. There are clips from cholecystectomy. IMPRESSION: Nonacute abdomen. No adverse change compared to old exam.
--- NOTE | 2016-09-18 07:04 | XR ---
EXAMINATION TYPE: XR chest 2V DATE OF EXAM: 09/18/2016 6:49 AM COMPARISON: 09/15/2016 HISTORY: Chest pain TECHNIQUE: Frontal and lateral views of the chest are obtained. FINDINGS: Heart is normal. Lungs are clear of consolidation. There are sternal wires. Thoracic aorta is atheromatous. There is no pleural effusion. Bony thorax appears intact. IMPRESSION: No active cardiopulmonary disease. Atheromatous aorta. No change. Mild right middle lobe scarring noted on the lateral view.
[2016-09-18 07:15] LABS: Creatine Kinase MB 1.1 ng/mL (0.0-2.4)
[2016-09-18 07:24] LABS: Troponin I 0.037 ng/mL (0.000-0.034)
[2016-09-18] MEDS ORDERED: ONDANSETRON 4 MG/2 ML VIAL IVP STA (09:12)
[2016-09-18] MEDS ORDERED: NITROGLYCERIN SL TABS 0.4 MG TAB SUBLINGUAL PRN (11:32)
[2016-09-18] MEDS ORDERED: HEPARIN SODIUM,PORCINE 5,000 UNIT/ML 1 ML VIAL IV ONE (11:32)
[2016-09-18] MEDS ORDERED: THIAMINE 100 MG/ML 2 ML VIAL IM STA (11:34)
[2016-09-18] MEDS ORDERED: LORazepam 2 MG/ML SYRINGE IV PRN (11:34)
[2016-09-18] MEDS: LORazepam 2 MG/ML SYRINGE IV PRN ×5 (12:06→23:31)
[2016-09-18] MEDS: HEPARIN SODIUM,PORCINE/D5W PMX 25,000 UNIT in DEXTROSE/WATER 1 500ML.BAG IV SCH (12:09)
[2016-09-18 13:22] LABS: Creatine Kinase MB 1.1 ng/mL (0.0-2.4)
[2016-09-18 13:42] LABS: Troponin I 0.036 ng/mL (0.000-0.034)
[2016-09-18] MEDS: SODIUM CHLORIDE 0.9% 1,000 ML IV SCH ×2 (15:26→21:53)
[2016-09-18] MEDS: MAG HYDROX/AL HYDROX/SIMETH 30 ML CUP PO SCH ×2 (16:09→21:56)
[2016-09-18] MEDS ORDERED: THIAMINE 100 MG TAB PO SCH (17:00)
[2016-09-18 18:24] LABS: Glucose,Whole Blood 186 mg/dL (75-99)
[2016-09-18] MEDS ORDERED: ACETAMINOPHEN TAB 325 MG TAB PO PRN (18:27)
[2016-09-18 19:21] LABS: Troponin I 0.033 ng/mL (0.000-0.034)
--- NOTE | 2016-09-18 19:32 | HP ---
DATE OF ADMISSION: Patient is a pleasant 60-year-old gentleman who came in with epigastric abdominal discomfort, retrosternal discomfort, acid burn kind of sensation, and patient was complaining of flu-like symptoms. Patient denied any fever or chills. Patient denied any nausea, vomiting. Patient was ( ) in the past. Patient has minimally elevated troponin ( ) myocardial infarction and patient had been drinking; did drink vodka yesterday followed by this epigastric abdominal discomfort. 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 Patient never stopped drinking. Extensive counseling was provided today. Patient I do not believe will quit alcohol in spite of all the measures we take here. Will watch him tonight, and patient probably will be discharged tomorrow. Patient may end up drinking alcohol tomorrow evening anyway ( ) I will treat for withdrawals and watch him for withdrawals tonight and discharge him on a few doses of Ativan tomorrow. Meantime, Cardiology will evaluate the patient because of his minimally elevated troponins. His chest pain, although I do not believe it is cardiac in nature. Home medications include: 1. Atorvastatin. 2. Tramadol. 3. Metoprolol. 4. Lisinopril. 5. Omeprazole. 6. Thiamine. 7. Amlodipine. 8. Magnesium hydroxide. 9. Folic acid. 10. Aspirin. Patient cannot take tramadol; that was withheld. ALLERGIES: NO KNOWN DRUG ALLERGIES. REVIEW OF SYSTEMS: CONSTITUTIONAL: No fever, no malaise, no fatigue. HEENT: No recent visual problems or hearing problems. Denied any sore throat. CARDIOVASCULAR: As described in HPI. ( ) PULMONARY: No shortness of breath, no cough, no hemoptysis. GASTROINTESTINAL: No diarrhea, no nausea, no vomiting, no abdominal pain. Normoactive bowel sounds. NEUROLOGICAL: No headaches, no weakness, no numbness. HEMATOLOGICAL: Denies any bleeding or petechiae. GENITOURINARY: Denies any burning micturition, frequency, or urgency. MUSCULOSKELETAL/RHEUMATOLOGICAL: Denies any joint pain, swelling, or any muscle pain. ENDOCRINE: Denies any polyuria or polydipsia. The rest of the 14 point review of systems is negative. Patient was complaining of flu-like symptoms and myalgias, as mentioned above. PAST MEDICAL HISTORY: 1. Coronary artery disease. 2. CABG in the past. 3. Hyperlipidemia. 4. Hypertension. 5. Myocardial infarction. 6. History of alcoholic gastritis. 7. Appendectomy. 8. Back surgery. 9. Coronary artery bypass surgery. 10. Depression. SOCIAL HISTORY: Patient continues to smoke, continues to drink alcohol, but he does not say if he drinks every day or not, even when I asked him, and patient did drink a pint of vodka last night. Patient does smoke half a pack per day. Occasionally uses marijuana. FAMILY HISTORY: Father had myocardial infarction. Father of myocardial infarction at age 75. Mother had breast cancer. PHYSICAL EXAMINATION: VITAL SIGNS: Temperature 98.5, pulse of 98, respiratory rate of 20. Blood pressure is 150/90. Saturating at 98% on room air. GENERAL: The patient is alert and oriented x3, not in any acute distress. Well developed, well nourished. HEENT: Pupils are round and equally reacting to light. EOMI. No scleral icterus. No conjunctival pallor. Normocephalic, atraumatic. No pharyngeal erythema. No thyromegaly. CARDIOVASCULAR: S1 and S2 present. No murmurs, rubs, or gallops. PULMONARY: Chest is clear to auscultation, no wheezing or crackles. ABDOMEN: Soft, nontender, nondistended, normoactive bowel sounds. No palpable organomegaly. MUSCULOSKELETAL: No joint swelling or deformity. EXTREMITIES: No cyanosis, clubbing, or pedal edema. NEUROLOGICAL: Gross neurological examination did not reveal any focal deficits. SKIN: No rashes. LABORATORY DATA: CBC, CMP are abnormal for mildly BUN and creatinine of 21 and 1.19. Troponins as mentioned above. Troponins: first one is 0.037 and second one is 0.036 ( ) EKG did not show any acute ST-T wave changes. Patient does have mildly elevated AST and ALT, AST being 133 and AST 191. Alkaline phosphatase remains stable and normal. ASSESSMENT AND PLAN: 1. Chest pain, probably related to alcoholic gastritis. Patient will start on Protonix. Will give him IV fluids. Possibility of discharge tomorrow after cardiology evaluation. Will rule out acute coronary syndromes. My suspicion is low in spite of minimal elevation of troponins, which I believe is non-cardiac ( ) related to renal failure. 2. Mild acute renal failure secondary to dehydration from alcohol abuse. 3. Alcoholic gastritis. 4. Alcoholic hepatitis. 5. History of myocardial infarction in the past. 6. Acute kidney injury secondary to ( ) IV fluids as mentioned above. 7. Hyperlipidemia. For above-mentioned chronic medical problems, will go ahead and continue his home medications. Nicotine abuse counseling was provided. Plan as mentioned above.
[2016-09-18] MEDS: PANTOPRAZOLE 40 MG/10 ML VIAL IVP SCH (21:53)
[2016-09-18] MEDS: ATORVASTATIN 10 MG TAB PO SCH (21:53)
[2016-09-18] MEDS: METOPROLOL TARTRATE 25 MG TAB PO SCH (21:53)
[2016-09-19] MEDS: LORazepam 2 MG/ML SYRINGE IV PRN ×2 (02:44→23:34)
[2016-09-19 07:06] LABS: Cholesterol 199 mg/dL (<200); Triglycerides 56 mg/dL (<150)
[2016-09-19 07:30] LABS: HDL Cholesterol 152 mg/dL (40-60)
[2016-09-19] MEDS: METOPROLOL TARTRATE 25 MG TAB PO SCH (08:12)
[2016-09-19] MEDS: ESCITALOPRAM 10 MG TAB PO SCH (08:12)
[2016-09-19] MEDS: LISINOPRIL 10 MG TAB PO SCH (08:12)
[2016-09-19] MEDS: PANTOPRAZOLE 40 MG/10 ML VIAL IVP SCH ×2 (08:12→21:18)
[2016-09-19] MEDS: THIAMINE 100 MG TAB PO SCH (08:12)
[2016-09-19] MEDS: MAG HYDROX/AL HYDROX/SIMETH 30 ML CUP PO SCH ×3 (08:13→21:24)
[2016-09-19] MEDS: FOLIC ACID 1 MG TAB PO SCH (08:13)
[2016-09-19] MEDS: ASPIRIN 325 MG TAB PO SCH (08:13)
[2016-09-19] MEDS: SODIUM CHLORIDE 0.9% 1,000 ML IV SCH ×2 (08:13→16:26)
--- NOTE | 2016-09-19 09:18 | P.CRDCN ---
History of Present Illness Consult date: 09/19/16 Reason for Consult (text): Chest pain Chief complaint: abdominal pain History of present illness: This is a 60-year-old gentleman with a known history of coronary artery disease , hyperlipidemia, hypertension, non-ST elevated OH in June 2016 with subsequent cardiac catheterization and attempted stent to the RCA with dissection followed by single-vessel bypass done in [place]. Patient has a history of alcoholism admits to drinking at least a fifth of hard liquor every day for the last 2 months. He's had multiple admissions since August 2016 to this hospital. He presented to the emergency department with his main complaint being abdominal pain which she rated a 10 out of 10 he also complained of some mild chest discomfort which he rated 3 out of 10. He also complained of some slight dizziness and mild shortness of breath. He had no nausea or vomiting. Patient was also acutely intoxicated with alcohol at the time with a serum alcohol level of 397. Abdominal x-ray done on admission showed nonacute abdomen, chest x-ray was negative for any acute cardiopulmonary process, EKG showed normal sinus rhythm and laboratory values were significant for troponin 0.037, 0.036 and 0.033; BUN 21 and creatinine 1.19. Upon examination this morning, patient is resting comfortably in bed. He denies further complaints of abdominal or chest discomfort. Past Medical History Past Medical History: Coronary Artery Disease (CAD), Eye Disorder, Hyperlipidemia, Hypertension, Myocardial Infarction (OH), Renal Disease Additional Past Medical History / Comment(s): Alcoholism, CKD stage III, gastritis, chronic cervical and back pain, R eye injury with surgery-limited sight. Last Myocardial Infarction Date:: june, History of Any Multi-Drug Resistant Organisms: None Reported Past Surgical History: Appendectomy, Back Surgery, Coronary Bypass/CABG, Orthopedic Surgery Additional Past Surgical History / Comment(s): L shoulder surgery, colonoscopy, R eye lens surgery due to injury, 06/2016 cath with perforation of the RCA during PCI resulting vessel bypass and pericardiocentesis-pt states he believes he had triple bypass. Past Anesthesia/Blood Transfusion Reactions: No Reported Reaction Past Psychological History: Depression Additional Psychological History / Comment(s): Pt currently is living in a motel. [place]. He [place] not drive. [facility] or his son takes him. Smoking Status: Current every day smoker Past Alcohol Use History: Daily Additional Past Alcohol Use History / Comment(s): Pt states he likes to drink a pint of vodka a day. He started smoking in 1969 and is a 1/2 ppd smoker. Past Drug Use History: Marijuana Additional Drug Use History / Comment(s): Pt states he smokes 2 joints per day for pain control. He states he has medical 3C Plus card. - Past Family History Father Family Medical History: Myocardial Infarction (OH) Additional Family Medical History / Comment(s): Father of a OH at the age of 71 yrs. Mother Family Medical History: Cancer Additional Family Medical History / Comment(s): Mother had breast cancer-bone cancer and at the age of 65 yrs. Medications and Allergies Home Medications Medication Instructions Recorded Confirmed Type Atorvastatin [Lipitor] 10 mg PO HS 08/11/16 09/18/16 History traMADol HCl [Ultram] 50 mg PO QID PRN 09/15/16 09/18/16 History Allergies Allergy/AdvReac Type Severity Reaction Status Date / Time No Known Allergies Allergy Verified 09/18/16 08:50 Physical Exam Vitals: Vital Signs Temp Pulse Pulse Resp BP BP Pulse Ox 09/19/16 04:00 98.4 F 96 18 140/96 96 09/19/16 00:00 98.1 F 86 18 160/96 98 09/18/16 20:00 98.3 F 120 H 18 148/98 96 09/18/16 18:20 100.1 F H 123 H 142/97 95 09/18/16 16:00 97.0 F L 120 H 18 161/109 95 09/18/16 12:59 97.4 F L 20 141/95 94 L 09/18/16 12:21 98.9 F 09/18/16 12:13 99 18 142/53 99 Intake and Output 09/18/16 09/19/16 09/19/16 22:59 06:59 14:59 Intake Total 104.14 98.086 140.208 Output Total 350 Balance -245.86 98.086 140.208 Intake: Intake, IV Titration 104.14 98.086 140.208 Amount Heparin Sodium,Porcine/ 104.14 98.086 140.208 D5w Pmx 25,000 unit In Dextrose/Water 1 500ml. bag @ 12 UNITS/KG/HR 15. 24 mls/hr IV .Q24H SARAH Rx #:[id number] Output: Urine 350 Other: # Voids 1 Weight 65.3 kg PHYSICAL EXAMINATION: HEENT: Head is atraumatic, normocephalic. Pupils equal, round. Neck is supple. There is no elevated jugular venous pressure. Left periorbital ecchymosis noted. HEART EXAMINATION: Heart sounds regular, S1 and S2 normal. No murmur or gallop heard. CHEST EXAMINATION: Lungs reveal diminished air entry bilaterally. No chest wall tenderness is noted on palpation or with deep breathing. ABDOMEN: Soft, nontender. Bowel sounds are heard. No organomegaly noted. EXTREMITIES: 2+ peripheral pulses with no evidence of peripheral edema and no calf tenderness noted. NEUROLOGIC patient is awake, alert and oriented x3. . Results 09/18/16 06:05 09/18/16 06:05 Cardiac Enzymes 09/18/16 09/18/16 Range/Units 12:37 17:58 CK-MB (CK-2) 1.1 1.0 (0.0-2.4) ng/mL Troponin I 0.036 H* 0.033 (0.000-0.034) ng/mL Coagulation 09/18/16 09/19/16 09/19/16 Range/Units 18:29 00:03 06:24 APTT 31.6 H 43.1 H 46.0 H (22.0-30.0) sec Lipids 09/19/16 Range/Units 06:24 Triglycerides 56 (<150) mg/dL Cholesterol 199 (<200) mg/dL HDL Cholesterol 152 H (40-60) mg/dL Current Medications Generic Name Dose Route Start Last Admin Trade Name Freq PRN Reason Stop Dose Admin Acetaminophen 650 mg 09/18/16 18:27 09/18/16 18:32 Tylenol Tab PO 650 mg Q6HR PRN Administration Fever and/ or Pain Al Hydroxide/Mg Hydroxide 30 ml 09/18/16 16:00 09/19/16 08:13 Maalox PO 30 ml TID SARAH Administration Aspirin 325 mg 09/19/16 09:00 09/19/16 08:13 Aspirin PO 325 mg DAILY SARAH Administration Atorvastatin Calcium 10 mg 09/18/16 21:00 09/18/16 21:53 Lipitor PO 10 mg HS SARAH Administration Escitalopram Oxalate 10 mg 09/19/16 09:00 09/19/16 08:12 Lexapro PO 10 mg DAILY SARAH Administration Folic Acid 1 mg 09/19/16 09:00 09/19/16 08:13 Folic Acid PO 1 mg DAILY SARAH Administration Heparin Sodium/Dextrose 25,000 500 mls @ 15.24 mls/hr 09/18/16 11:45 07:24 unit/ IV Solution IV 18 units/kg/hr .Q24H SARAH 22.86 mls/hr Protocol Titration 12 UNITS/KG/HR Sodium Chloride 1,000 mls @ 120 mls/hr 09/18/16 15:00 09/19/16 08:13 Saline 0.9% IV 120 mls/hr .Q8H20M SARAH Administration Lisinopril 10 mg 09/19/16 09:00 09/19/16 08:12 Zestril PO 10 mg DAILY SARAH Administration Lorazepam 1 mg 09/18/16 11:34 09/19/16 02:44 Ativan IV 1 mg Q2HR PRN Administration CIWA 8 or 9 Lorazepam 1 mg 09/18/16 11:34 09/18/16 20:00 Ativan IV 1 mg Q1HR PRN Administration CIWA 10 to 15 Lorazepam 2 mg 09/18/16 11:34 Ativan IV Q1HR PRN CIWA 16 or higher Metoprolol Tartrate 25 mg 09/18/16 21:00 09/19/16 08:12 Lopressor PO 25 mg BID SARAH Administration Nitroglycerin 0.4 mg 09/18/16 11:32 Nitrostat SUBLINGUAL Q5M PRN Chest Pain Pantoprazole Sodium 40 mg 09/18/16 21:00 09/19/16 08:12 Protonix IVP 40 mg BID SARAH Administration Thiamine HCl 100 mg 09/19/16 09:00 09/19/16 08:12 Vitamin B-1 PO 100 mg DAILY SARAH Administration Intake and Output 09/18/16 09/19/16 09/19/16 22:59 06:59 14:59 Intake Total 104.14 98.086 140.208 Output Total 350 Balance -245.86 98.086 140.208 Intake: Intake, IV Titration 104.14 98.086 140.208 Amount Heparin Sodium,Porcine/ 104.14 98.086 140.208 D5w Pmx 25,000 unit In Dextrose/Water 1 500ml. bag @ 12 UNITS/KG/HR 15. 24 mls/hr IV .Q24H SARAH Rx #:[id number] Output: Urine 350 Other: # Voids 1 Weight 65.3 kg EKG Interpretations (text) Sinus rhythm without evidence of acute ischemic changes Assessment and Plan Plan: Assessment and plan #1 alcohol abuse and intoxication #2 coronary artery disease with prior OH with stent placement to RCA and subsequent single vessel bypass due to perforation #3 abdominal pain likely due to gastritis #4 mild troponin leak not consistent with an acute ischemic event #5 hypertension #6 depression From Cardiac standpoint, we will continue heparin for a total of 48 hours. We will increase metoprolol tartrate to 50 mg BID. Ambulate the patient. We will continue following the patient and anticipate discharge in the next 24-48 hour. He will need further cardiac work-up including a stress test done one this admission or as an outpatient depending on his clinical course. BILINGUAL RESEARCH INTERVIEWER note has been reviewed, I agree with a documented findings and plan of care. Patient was seen and examined.
[2016-09-19] MEDS: HYDROmorphone 1 MG/ML 1 ML SYRINGE IVP PRN ×4 (09:56→21:24)
[2016-09-19 10:33] LABS: Anion Gap 12 mmol/L; Blood Urea Nitrogen 17 mg/dL (9-20); Calcium 9.1 mg/dL (8.4-10.2); Carbon Dioxide 28 mmol/L (22-30); Chloride 96 mmol/L (98-107); Glucose 108 mg/dL (74-99); Non-African American GFR(MDRD) >60 (>60 ml/min/1.73 sqM); Sodium 136 mmol/L (137-145)
[2016-09-19 10:48] LABS: Potassium 3.5 mmol/L (3.5-5.1)
[2016-09-19] MEDS: HEPARIN SODIUM,PORCINE/D5W PMX 25,000 UNIT in DEXTROSE/WATER 1 500ML.BAG IV SCH (10:58)
[2016-09-19] MEDS ORDERED: HEPARIN SODIUM,PORCINE 5,000 UNIT/ML 1 ML VIAL IV PRN (16:17)
--- NOTE | 2016-09-19 17:37 | PN ---
The patient was admitted for chest pain most probably related to alcoholic gastritis. Patient is feeling well and cardiology is recommending metoprolol ( ) for another 48 hours because of mildly elevated troponins although his pain does not appear to be cardiac in nature. The patient has significant ( ). REVIEW OF SYSTEMS: CARDIOVASCULAR: No chest pain, no orthopnea, no PND, no palpitations. PULMONARY: Denied any shortness of breath. No cough or hemoptysis. GASTROINTESTINAL: Patient abdominal pain resolved, but patient is complaining of back pain. NEUROLOGIC: No headaches, no weakness, no numbness. Medications were reviewed. PHYSICAL EXAMINATION: VITAL SIGNS: Temperature 98.4, pulse of 76, respiratory rate of 16, blood pressure 144/98, saturating at 96% on room air. GENERAL: The patient is alert and oriented x3, not in any acute distress. Well developed, well nourished. HEENT: Pupils are round and equally reacting to light. EOMI. No scleral icterus. No conjunctival pallor. Normocephalic, atraumatic. No pharyngeal erythema. No thyromegaly. CARDIOVASCULAR: S1 and S2 present. No murmurs, rubs, or gallops. PULMONARY: Chest is clear to auscultation, no wheezing or crackles. ABDOMEN: Soft, nontender, nondistended, normoactive bowel sounds. No palpable organomegaly. MUSCULOSKELETAL: No joint swelling or deformity. EXTREMITIES: No cyanosis, clubbing, or pedal edema. NEUROLOGICAL: Gross neurological examination did not reveal any focal deficits. SKIN: No rashes. ASSESSMENT AND PLAN: 1. Chest pain, related to alcoholic gastritis. Continue with Protonix, IV fluids. 2. Mild renal failure secondary to ( ) from alcohol which improved. 3. Alcoholic gastritis. 4. Alcoholic hepatitis. 5. History of myocardial infarction in the past. 6. Acute kidney injury. 7. Hyperlipidemia. PLAN: IV fluids, Protonix, IV heparin, for elevated troponins which my suspicion is low for Type I [id number] myocardial infarction.
[2016-09-19] MEDS: ATORVASTATIN 10 MG TAB PO SCH (21:18)
[2016-09-19] MEDS: METOPROLOL TARTRATE 50 MG TAB PO SCH (21:18)
[2016-09-20] MEDS: SODIUM CHLORIDE 0.9% 1,000 ML IV SCH ×3 (01:46→17:17)
[2016-09-20] MEDS: HYDROmorphone 1 MG/ML 1 ML SYRINGE IVP PRN ×5 (02:00→23:27)
[2016-09-20] MEDS: LORazepam 2 MG/ML SYRINGE IV PRN ×4 (03:39→23:28)
[2016-09-20 06:30] LABS: ALT 119 U/L (21-72); AST 146 U/L (17-59); Alkaline Phosphatase 100 U/L (38-126); Anion Gap 12 mmol/L; Blood Urea Nitrogen 15 mg/dL (9-20); Calcium 9.2 mg/dL (8.4-10.2); Carbon Dioxide 27 mmol/L (22-30); Chloride 93 mmol/L (98-107); Glucose 103 mg/dL (74-99); Non-African American GFR(MDRD) >60 (>60 ml/min/1.73 sqM); Potassium 3.7 mmol/L (3.5-5.1); Sodium 132 mmol/L (137-145); Total Bilirubin 0.8 mg/dL (0.2-1.3); Total Protein 7.1 g/dL (6.3-8.2)
[2016-09-20] MEDS: ASPIRIN 325 MG TAB PO SCH (08:28)
[2016-09-20] MEDS: THIAMINE 100 MG TAB PO SCH (08:28)
[2016-09-20] MEDS: METOPROLOL TARTRATE 50 MG TAB PO SCH ×2 (08:28→22:11)
[2016-09-20] MEDS: FOLIC ACID 1 MG TAB PO SCH (08:29)
[2016-09-20] MEDS: PANTOPRAZOLE 40 MG/10 ML VIAL IVP SCH ×2 (08:29→22:11)
[2016-09-20] MEDS: MAG HYDROX/AL HYDROX/SIMETH 30 ML CUP PO SCH ×3 (08:29→23:29)
[2016-09-20] MEDS: LISINOPRIL 10 MG TAB PO SCH ×2 (08:29→22:11)
[2016-09-20] MEDS: ESCITALOPRAM 10 MG TAB PO SCH (08:29)
--- NOTE | 2016-09-20 14:12 | P.PN ---
Subjective Principal diagnosis: chest discomfort this is a pleasant 60-year-old gentleman with a past medical history significant for CAD, hypertension, dyslipidemia, and history of alcohol abuse, presented to the hospital with a chest discomfort. 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 He presented to the hospital with chest discomfort and was found to have mildly abnormal cardiac enzymes. At the same time he was intoxicated with alcohol. Maximize medical treatment was recommended at that point. On follow-up with him today, he describes atypical chest discomfort and abdominal discomfort.the blood pressure continues to be uncontrolled. I am going to increase the lisinopril for better blood pressure control. Beside that he is on aspirin, beta ashlyn, and statin and we will continue that. If he continues to have chest discomfort I would consider proceeding with a stress test or heart catheterization. Please note that the patient underwent an echocardiogram in August 2016 and there is no comment as ejection fraction because the study was technically very difficult. Objective - Vital Signs Vital signs: Vital Signs Temp 97.6 F 09/20/16 11:31 Pulse 65 09/20/16 11:31 Resp 16 09/20/16 11:31 BP 157/93 09/20/16 11:31 Pulse Ox 96 09/20/16 11:31 Intake & Output 09/19/16 09/20/16 09/20/16 18:59 06:59 18:59 Intake Total 1301.376 698.213 480 Output Total 800 Balance 501.376 698.213 480 Weight 65.3 kg 65 kg Intake: Intake, IV Titration 1301.376 98.213 240 Amount Heparin Sodium,Porcine/ 341.376 98.213 D5w Pmx 25,000 unit In Dextrose/Water 1 500ml. bag @ 12 UNITS/KG/HR 15. 24 mls/hr IV .Q24H [facility] Rx #:[id number] Sodium Chloride 0.9% 1, 960 240 000 ml @ 120 mls/hr IV . Q8H20M SARAH Rx#:[id number] Oral 600 240 Output: Urine 800 Other: # Voids 2 1 # Bowel Movements 0 - Constitutional General appearance: Present: no acute distress - Respiratory Respiratory: bilateral: CTA - Cardiovascular Rhythm: regular Heart sounds: normal: S1, S2 - Labs CBC & Chem 7: 09/18/16 06:05 09/20/16 05:27 Labs: Abnormal Lab Results - Last 24 Hours (Table) 09/19/16 09/19/16 09/20/16 Range/Units 13:52 19:17 01:57 APTT 42.0 H 87.6 H 61.2 H (22.0-30.0) sec Sodium (137-145) mmol/L Chloride (98-107) mmol/L Glucose (74-99) mg/dL AST (17-59) U/L ALT (21-72) U/L 09/20/16 09/20/16 Range/Units 05:27 05:27 APTT 55.4 H (22.0-30.0) sec Sodium 132 L (137-145) mmol/L Chloride 93 L (98-107) mmol/L Glucose 103 H (74-99) mg/dL AST 146 H (17-59) U/L ALT 119 H (21-72) U/L Assessment and Plan Plan: assessment #1 alcohol intoxication #2 mildly abnormal cardiac enzymes #3 mildly abnormal liver enzymes #4 known CAD with prior single-vessel bypass #5 noncompliance Plan #1 increase the dose of lisinopril #2 continue the current medical treatment #3 follow-up with the patient
[2016-09-20] MEDS: NICOTINE 14MG/24HR PATCH TRANSDERM SCH (14:52)
--- NOTE | 2016-09-20 15:09 | PN ---
Patient came in with chest pain, probably related to alcoholic gastritis. My suspicion is low cardiac ( ). Cardiology is recommending to continue metoprolol and heparin. We are getting Physical Therapy to evaluate the patient. Patient is quite wobbly and not stable upon his feet and will keep her one more day and patient probably will be discharged tomorrow to either subacute rehab or home with home care depending on physical therapy evaluation. REVIEW OF SYSTEMS: CARDIOVASCULAR: Patient has mostly back pain and lower abdominal pain which is chronic for him. PULMONARY: Denied any shortness of breath. No cough or hemoptysis. GASTROINTESTINAL: No diarrhea, nausea or vomiting. No abdominal pain. Normoactive bowel sounds. NEUROLOGIC: No headaches, no weakness, no numbness. Medications were reviewed. PHYSICAL EXAMINATION: VITAL SIGNS: Temperature 97.6, pulse of 65, respiratory rate of 16, blood pressure is 157/93, saturating at 96% on room air. GENERAL: The patient is alert and oriented x3, not in any acute distress. Well developed, well nourished. HEENT: Pupils are round and equally reacting to light. EOMI. No scleral icterus. No conjunctival pallor. Normocephalic, atraumatic. No pharyngeal erythema. No thyromegaly. CARDIOVASCULAR: S1 and S2 present. No murmurs, rubs, or gallops. PULMONARY: Chest is clear to auscultation, no wheezing or crackles. ABDOMEN: Soft, nontender, nondistended, normoactive bowel sounds. No palpable organomegaly. MUSCULOSKELETAL: No joint swelling or deformity. EXTREMITIES: No cyanosis, clubbing, or pedal edema. NEUROLOGICAL: Gross neurological examination did not reveal any focal deficits. SKIN: No rashes. LABORATORY DATA: Basic metabolic profile is abnormal for low sodium of 133, AST and ALT remain stable, fairly. I will repeat comprehensive metabolic again tomorrow. There is minimal elevation of both AST and ALT but I would say it is relatively stable. ASSESSMENT AND PLAN: 1. Chest pain, secondary to alcoholic gastritis. Continue with Protonix. 2. Mild renal failure secondary to intravascular depletion, which improved. 3. Alcoholic hepatitis. 4. History of myocardial infarction in the past with minimally elevated troponins, which is again secondary to intravascular volume depletion. My suspicion is low for acute type I myocardial infarction. 5. Hyperlipidemia. PLAN: As mentioned above. Deconditioning secondary to excessive alcohol use.
[2016-09-20] MEDS: HEPARIN SODIUM,PORCINE/D5W PMX 25,000 UNIT in DEXTROSE/WATER 1 500ML.BAG IV SCH (17:17)
[2016-09-20] MEDS: ATORVASTATIN 10 MG TAB PO SCH (22:11)
[2016-09-21] MEDS: SODIUM CHLORIDE 0.9% 1,000 ML IV SCH ×3 (04:44→18:36)
[2016-09-21] MEDS: LORazepam 2 MG/ML SYRINGE IV PRN (04:45)
[2016-09-21 05:01] VITALS: RESP 18
[2016-09-21 06:33] LABS: CH 29.8; CHCM 32.7; HCT 40.9 % (39.0-53.0); HDW 2.61; MCH 28.9 pg (25.0-35.0); MCHC 31.7 g/dL (31.0-37.0); MCV 91.2 fL (80.0-100.0); Mean Platelet Volume 8.8; RBC 4.49 m/uL (4.30-5.90); RDW 14.5 % (11.5-15.5); WBC 7.9 k/uL (3.8-10.6)
[2016-09-21 06:56] LABS: ALT 110 U/L (21-72); AST 106 U/L (17-59); Alkaline Phosphatase 104 U/L (38-126); Anion Gap 12 mmol/L; Blood Urea Nitrogen 21 mg/dL (9-20); Calcium 9.6 mg/dL (8.4-10.2); Carbon Dioxide 28 mmol/L (22-30); Chloride 91 mmol/L (98-107); Glucose 124 mg/dL (74-99); Non-African American GFR(MDRD) >60 (>60 ml/min/1.73 sqM); Potassium 3.7 mmol/L (3.5-5.1); Sodium 131 mmol/L (137-145); Total Bilirubin 0.7 mg/dL (0.2-1.3); Total Protein 7.3 g/dL (6.3-8.2)
[2016-09-21] MEDS: HYDROmorphone 1 MG/ML 1 ML SYRINGE IVP PRN ×4 (08:30→20:43)
[2016-09-21] MEDS: METOPROLOL TARTRATE 50 MG TAB PO SCH ×2 (08:31→20:43)
[2016-09-21] MEDS: NICOTINE 14MG/24HR PATCH TRANSDERM SCH (08:31)
[2016-09-21] MEDS: PANTOPRAZOLE 40 MG/10 ML VIAL IVP SCH ×2 (08:31→20:41)
[2016-09-21] MEDS: THIAMINE 100 MG TAB PO SCH (08:32)
[2016-09-21] MEDS: ESCITALOPRAM 10 MG TAB PO SCH (08:32)
[2016-09-21] MEDS: ASPIRIN 325 MG TAB PO SCH (08:32)
[2016-09-21] MEDS: FOLIC ACID 1 MG TAB PO SCH (08:32)
[2016-09-21] MEDS: LISINOPRIL 10 MG TAB PO SCH ×2 (08:32→20:41)
[2016-09-21] MEDS: MAG HYDROX/AL HYDROX/SIMETH 30 ML CUP PO SCH ×3 (08:36→20:43)
--- NOTE | 2016-09-21 11:35 | P.PN ---
Subjective Principal diagnosis: Chest pain This is a pleasant 60-year-old gentleman with history of coronary artery disease, hypertension, hyperlipidemia, alcohol abuse, he underwent heart catheterization recently which was complicated by perforation of the right coronary artery, and subsequent to that underwent single-vessel bypass. He presented to the hospital on this occasion with symptoms of chest discomfort. He was found to have mildly abnormal cardiac enzymes but was also highly intoxicated with alcohol on admission. He was seen and examined this morning, denied any further chest pain but was complaining of some abdominal discomfort and nausea after eating his breakfast. No further chest discomfort. Troponins 0.033, 0.036, 0.037. Objective - Vital Signs Vital signs: Vital Signs Temp 98.1 F 09/21/16 08:00 Pulse 99 09/21/16 08:00 Resp 18 09/21/16 04:00 BP 138/107 09/21/16 08:00 Pulse Ox 95 09/21/16 08:00 Intake & Output 09/20/16 09/21/16 09/21/16 18:59 06:59 18:59 Intake Total 1260 236 Output Total 150 Balance 1110 236 Weight 65.7 kg Intake: Intake, IV Titration 1020 Amount Sodium Chloride 0.9% 1, 1020 000 ml @ 120 mls/hr IV . Q8H20M [facility] Rx#:[id number] Oral 240 236 Output: Urine 150 Other: Voiding Method Toilet Urinal # Voids 1 # Bowel Movements 0 - Exam PHYSICAL EXAMINATION: HEENT: Head is atraumatic, normocephalic. Pupils equal, round. Neck is supple. There is no elevated jugular venous pressure. HEART EXAMINATION: Heart S1, S2 normal. No murmur or gallop heard. CHEST EXAMINATION: Lungs are clear to auscultation and precussion. No chest wall tenderness is noted on palpation or with deep breathing. ABDOMEN: Soft, nontender. Bowel sounds are heard. No organomegaly noted. EXTREMITIES: 2+ peripheral pulses with no evidence of peripheral edema and no calf tenderness noted. NEUROLOGIC patient is awake, alert and oriented -3. . - Labs CBC & Chem 7: 09/21/16 05:44 09/21/16 05:44 Labs: Abnormal Lab Results - Last 24 Hours (Table) 09/21/16 Range/Units 05:44 Sodium 131 L (137-145) mmol/L Chloride 91 L (98-107) mmol/L BUN 21 H (9-20) mg/dL Glucose 124 H (74-99) mg/dL AST 106 H (17-59) U/L ALT 110 H (21-72) U/L Assessment and Plan (1) Chest pain Status: Acute (2) Hx of CABG Status: Acute (3) Hyperlipemia Status: Acute (4) Abdominal pain Status: Acute (5) Alcohol intoxication Status: Acute (6) COPD (chronic obstructive pulmonary disease) Status: Acute (7) History of ischemic heart disease Status: Acute Plan: From cardiology's perspective, we'll discontinue the IV heparin. Decrease aspirin 81 mg, Plavix to his medication regime. Increase Lipitor to 40 mg daily , and if his LFTs continued to improve increase that to 80. Continue maximize medical therapy. DNP note has been reviewed, I agree with a documented findings and plan of care. Patient was seen and examined.
--- NOTE | 2016-09-21 12:36 | DS ---
DATE OF ADMISSION: 09/18/2016 DATE OF DISCHARGE: Patient came in with epigastric abdominal pain, chest pain and also back pain. Epigastric abdominal pain and chest pain is related to gastritis and gastroesophageal reflux disease and back pain is a chronic low back pain and Patient is weak, deconditioned because of chronic alcoholism. Patient will be discharged to subacute rehabilitation. Patient has very minimally elevated troponins, elevation is very minimal. I do not believe patient has an acute myocardial infarction. Cardiology evaluated the patient. They recommended maximum medical therapy. Patient will be discharged today to subacute rehabilitation. Patient was seen and examined on the day of discharge. Vitals are stable. PHYSICAL EXAMINATION: GENERAL: Patient is alert and oriented x3 but with slow. NEUROLOGICAL: Unchanged compared to yesterday. HEENT: Pupils are round and equally reacting to light. EOMI. No scleral icterus. No conjunctival pallor. Normocephalic, atraumatic. No pharyngeal erythema. No thyromegaly. CARDIOVASCULAR: S1 and S2 present. No murmurs, rubs, or gallops. PULMONARY: Chest is clear to auscultation, no wheezing or crackles. ABDOMEN: Soft, nontender, nondistended, normoactive bowel sounds. No palpable organomegaly. MUSCULOSKELETAL: No joint swelling or deformity. EXTREMITIES: No cyanosis, clubbing, or pedal edema. SKIN: No rashes. FINAL DIAGNOSES: 1. Chest pain due to above-mentioned reasons. 2. Mild renal failure secondary to intravascular volume depletion, which improved. 3. Acute alcoholic hepatitis. 4. Acute myocardial infarction. 5. Hyperlipidemia. Please refer to my depart summary for the details of discharge medications. DISCHARGE DIET: Cardiac. Activity as per the facility. Patient is being discharged on tramadol. I do not have much choice regarding pain medications. Patient cannot take Tylenol with his medication because of his elevated liver enzymes and secondary to alcoholic hepatitis and patient cannot take NSAIDS because of alcoholic gastritis and tramadol is also not a very good medication for him, the reason behind that is if he goes and drinks alcoholic and quits drinking alcohol, patient can have withdrawal seizures and tramadol frustrates withdrawal seizures. Since he is going to rehabilitation, I will go ahead and give him tramadol. We do not have much of a choice regarding his pain medication at this time. Spent greater than 35 minutes in total discharge process.
[2016-09-21] MEDS: CLOPIDOGREL 75 MG TAB PO SCH (12:49)
[2016-09-21] MEDS ORDERED: ATORVASTATIN 40 MG TAB PO SCH (21:00)
[2016-09-22] MEDS: SODIUM CHLORIDE 0.9% 1,000 ML IV SCH ×2 (05:49→08:13)
[2016-09-22] MEDS: THIAMINE 100 MG TAB PO SCH (08:12)
[2016-09-22] MEDS: PANTOPRAZOLE 40 MG/10 ML VIAL IVP SCH (08:12)
[2016-09-22] MEDS: NICOTINE 14MG/24HR PATCH TRANSDERM SCH (08:12)
[2016-09-22] MEDS: ESCITALOPRAM 10 MG TAB PO SCH (08:13)
[2016-09-22] MEDS: METOPROLOL TARTRATE 50 MG TAB PO SCH (08:13)
[2016-09-22] MEDS: LISINOPRIL 10 MG TAB PO SCH (08:13)
[2016-09-22] MEDS: FOLIC ACID 1 MG TAB PO SCH (08:13)
[2016-09-22] MEDS: CLOPIDOGREL 75 MG TAB PO SCH (08:13)
[2016-09-22] MEDS: MAG HYDROX/AL HYDROX/SIMETH 30 ML CUP PO SCH ×2 (08:18→16:15)
[2016-09-22] MEDS ORDERED: ASPIRIN 81 MG CHEW PO SCH (09:00)
[2016-09-22] MEDS: HYDROmorphone 1 MG/ML 1 ML SYRINGE IVP PRN ×2 (11:48→16:15)
[2016-09-22 13:10] VITALS: BMI 21.6
[2016-09-22 15:52] VITALS: BP 131/86; PULSE 73; TEMP 97.3
[2016-09-22] MEDS ORDERED: PANTOPRAZOLE 40 MG TABLET PO SCH (17:30)
--- NOTE | 2016-09-22 22:38 | DS ---
DATE OF ADMISSION: 09/18/2016 DATE OF DISCHARGE: 09/22/2016 Patient was discharged from my service yesterday, but did not end up going home. I will update from yesterday. Patient is pretty much ambulatory. I believe patient does manipulate the physical therapy evaluators. Patient was ambulating very well without any problems. Patient does not even have ataxia or gait disturbance or anything like that. I believe patient can be discharged, will be discharged home with home care. Patient will be referred to one of the shelters, as he does not have any place to go. Regarding his alcohol withdrawals, it was documented multiple times although patient was having withdrawals, patient never had any withdrawal since his admission. Although patient apparently had confusional episodes, which can be from his medications, I do not believe patient has any withdrawals at this point of time. Patient will be discharged home today. Please refer to my discharge summary from yesterday for further details of discharge. Please consider my discharge summary from yesterday as progress note.
== END 2016-09-22 17:56 | disposition home or self-care (01) | DRG 392 ==
LOC: EC 05:55 → 6SEL 11:34 → 4MS4W 09-22 09:54
PROVIDERS: ADMIT Hospitalist; ATTEND Hospitalist
DX: K29.20 Alcoholic gastritis without bleeding (principal); N17.9 Acute kidney failure, unspecified; K70.10 Alcoholic hepatitis without ascites; N18.3 Chronic kidney disease, stage 3 (moderate); E86.0 Dehydration; F10.229 Alcohol dependence with intoxication, unspecified; I25.10 Atherosclerotic heart disease of native coronary artery without angina pectoris; I12.9 Hypertensive chronic kidney disease with stage 1 through stage 4 chronic kidney disease, or unspecified chronic kidney disease; E78.5 Hyperlipidemia, unspecified; F32.9 Major depressive disorder, single episode, unspecified; J44.9 Chronic obstructive pulmonary disease, unspecified; G89.29 Other chronic pain; I25.2 Old myocardial infarction; H54.61 Unqualified visual loss, right eye, normal vision left eye; K21.9 Gastro-esophageal reflux disease without esophagitis; R53.1 Weakness; R74.8 Abnormal levels of other serum enzymes; M54.5 Low back pain; H57.9 Unspecified disorder of eye and adnexa; F12.90 Cannabis use, unspecified, uncomplicated; R41.0 Disorientation, unspecified; M79.1 Myalgia; M54.2 Cervicalgia; F17.200 Nicotine dependence, unspecified, uncomplicated; Z71.6 Tobacco abuse counseling; Z71.41 Alcohol abuse counseling and surveillance of alcoholic; Z95.1 Presence of aortocoronary bypass graft; Z79.82 Long term (current) use of aspirin; Z91.19 Patient's noncompliance with other medical treatment and regimen; Z82.49 Family history of ischemic heart disease and other diseases of the circulatory system; Z80.3 Family history of malignant neoplasm of breast; Z95.5 Presence of coronary angioplasty implant and graft; Z80.8 Family history of malignant neoplasm of other organs or systems; Z90.49 Acquired absence of other specified parts of digestive tract; Z79.891 Long term (current) use of opiate analgesic; Z79.899 Other long term (current) drug therapy; Y90.8 Blood alcohol level of 240 mg/100 ml or more
CPT/HCPCS: 36415; 51798; 71010; 71020; 74000; 80048; 80053; 80061; 80320; 82150; 82550; 82553; 83690; 83735; 84484; 85025; 85027; 85610; 85730; 93005; 96372; 96375; 96376; 99285

== ENCOUNTER 2016-09-23 16:28 | Emergency (ER) | payer MEDICARE ==
[2016-09-23] MEDS ORDERED: ASPIRIN 81 MG CHEW PO STA (16:39)
--- NOTE | 2016-09-23 16:47 | ED ---
General Adult HPI - General Time Seen by Provider: 09/23/16 16:30 Source: RN notes reviewed - History of Present Illness Initial comments: 60-year-old male presents to the emergency department with a chief complaint of being cold. Patient states that he slept all night and ate lots and he is shivering. Patient denies any chest pain. Patient denies any shortness of breath nausea or vomiting. Mainly he is just cold. Patient is a chronic alcoholic. Patient states he hasn't had any medicine. Patient did drink last night. He states that he is not allowed of the house due to his stating he can't come in if he is drunk. The patient states that he is here due to being cold. He doesn't think his chest pain he has had a history of bypass that he at this time is only cold and states that there is no chest pain.Patient denies any recent fever, chills, shortness of breath, back pain, abdominal pain, nausea vomiting, numbness or tingling, dysuria or hematuria, constipation or diarrhea, headaches or visual changes, or any other current symptoms. - Related Data Previous Rx's Medication Instructions Recorded Collagenase [Santyl] 1 applic TOPICAL DAILY #1 tube 08/13/16 Escitalopram [Lexapro] 10 mg PO DAILY #30 tablet 08/13/16 Lisinopril [Zestril] 10 mg PO DAILY tab 08/13/16 Omeprazole [PriLOSEC] 40 mg PO QAM #30 capsule. 08/13/16 Thiamine [Vitamin B-1] 100 mg PO DAILY #30 tablet 08/28/16 Mag Hydrox/Al Hydrox/Simeth 30 ml PO TID 30 Days 08/31/16 [Maalox] Folic Acid 1 mg PO DAILY #30 tablet 09/04/16 Aspirin EC [Ecotrin Low Dose] 81 mg PO DAILY #1 tablet. 09/07/16 Atorvastatin [Lipitor] 40 mg PO HS tab 09/21/16 Clopidogrel [Plavix] 75 mg PO DAILY tab 09/21/16 Metoprolol Tartrate [Lopressor] 50 mg PO BID tab 09/21/16 traMADol HCL [Ultram] 50 mg PO Q4HR PRN #30 tab MDD 8 09/21/16 TABS Allergies Allergy/AdvReac Type Severity Reaction Status Date / Time No Known Allergies Allergy Verified 09/23/16 18:12 Review of Systems ROS Statement: Those systems with pertinent positive or pertinent negative responses have been documented in the HPI. ROS Other: All systems not noted in ROS Statement are negative. Past Medical History Past Medical History: Coronary Artery Disease (CAD), Eye Disorder, Hyperlipidemia, Hypertension, Myocardial Infarction ([place]), Renal Disease Additional Past Medical History / Comment(s): Alcoholism, CKD stage III, gastritis, chronic cervical and back pain, R eye injury with surgery-limited sight. Last Myocardial Infarction Date:: june, History of Any Multi-Drug Resistant Organisms: None Reported Past Surgical History: Appendectomy, Back Surgery, Coronary Bypass/CABG, Orthopedic Surgery Additional Past Surgical History / Comment(s): L shoulder surgery, colonoscopy, R eye lens surgery due to injury, 06/2016 cath with perforation of the RCA during PCI resulting vessel bypass and pericardiocentesis-pt states he believes he had triple bypass. Past Anesthesia/Blood Transfusion Reactions: No Reported Reaction Past Psychological History: Depression Additional Psychological History / Comment(s): Pt currently is living in a motel. [place] He does not drive. He gets to [employer] by [employer] or his son takes him. Smoking Status: Current every day smoker Past Alcohol Use History: Daily Additional Past Alcohol Use History / Comment(s): Pt states he likes to drink a pint of vodka a day. He started smoking in 1969 and is a 1/2 ppd smoker. Past Drug Use History: Marijuana Additional Drug Use History / Comment(s): Pt states he smokes 2 joints per day for pain control. He states he has medical [employer] card. - Past Family History Father Family Medical History: Myocardial Infarction (GA) Additional Family Medical History / Comment(s): Father of a GA at the age of 71 yrs. Mother Family Medical History: Cancer Additional Family Medical History / Comment(s): Mother had breast cancer-bone cancer and at the age of 65 yrs. General Exam - General Exam Comments Initial Comments: General: The patient is awake and alert, in no distress, and does not appear acutely ill. Eye: Pupils are equal, round and reactive to light, extra-ocular movements are intact; there is normal conjunctiva bilaterally. No signs of icterus. Ears, nose, mouth and throat: There are moist mucous membranes and no oral lesions. Neck: The neck is supple, there is no tenderness. Cardiovascular: There is a regular rate and rhythm. No murmur, rub or gallop is appreciated. Respiratory: Lungs are clear to auscultation, respirations are non-labored, breath sounds are equal. No wheezes, stridor, rales, or rhonchi. Gastrointestinal: Soft, non-distended, non-tender abdomen without masses or organomegaly noted. There is no rebound or guarding present. No CVA tenderness. Bowel sounds are unremarkable. Back: There is no tenderness to palpation in the midline. There is no obvious deformity. No rashes noted. Musculoskeletal: Normal ROM, no tenderness, There is no pedal edema. There is no calf tenderness or swelling. Sensation intact. Pulses equal bilaterally 2+. Neurological: CN II-XII intact, There are no obvious motor or sensory deficits. Coordination appears grossly intact. Speech is normal. Skin: Skin is warm and dry and no rashes or lesions are noted. Psychiatric: Cooperative, appropriate mood & affect, normal judgment. Course Vital Signs 09/23/16 09/23/16 09/23/16 16:28 17:20 18:13 Temperature 97.2 F L Pulse Rate 70 80 82 Respiratory 18 18 16 Rate Blood Pressure 118/68 131/93 114/71 O2 Sat by Pulse 100 95 96 Oximetry Medical Decision Making - Medical Decision Making 60-year-old male presents emergency Department chief complaint of being cold. At this time the patient is adequately warm. Lab work does appear to be stable. At this time patient will be discharged home. We discussed follow-up and he could go to a homeless half-way for the night. We did give him information regarding this. Patient stated he understood and all questions. - Lab Data Result diagrams: 09/23/16 17:24 09/23/16 17:24 Lab Results 09/23/16 09/23/16 Range/Units 17:24 17:24 WBC 9.1 (3.8-10.6) k/uL RBC 4.21 L (4.30-5.90) m/uL Hgb 12.1 L (13.0-17.5) gm/dL Hct 38.1 L (39.0-53.0) % MCV 90.4 (80.0-100.0) fL MCH 28.7 (25.0-35.0) pg MCHC 31.8 (31.0-37.0) g/dL RDW 14.8 (11.5-15.5) % Plt Count 221 (150-450) k/uL Neutrophils % 70 % Lymphocytes % 18 % Monocytes % 8 % Eosinophils % 1 % Basophils % 0 % Neutrophils # 6.4 (1.3-7.7) k/uL Lymphocytes # 1.6 (1.0-4.8) k/uL Monocytes # 0.7 (0-1.0) k/uL Eosinophils # 0.1 (0-0.7) k/uL Basophils # 0.0 (0-0.2) k/uL Sodium 135 L (137-145) mmol/L Potassium 3.8 (3.5-5.1) mmol/L Chloride 97 L (98-107) mmol/L Carbon Dioxide 25 (22-30) mmol/L Anion Gap 13 mmol/L BUN 28 H (9-20) mg/dL Creatinine 1.24 (0.66-1.25) mg/dL Est GFR (MDRD) Af Amer >60 (>60 ml/min/1.73 sqM) Est GFR (MDRD) Non-Af 59 (>60 ml/min/1.73 sqM) Glucose 89 (74-99) mg/dL Calcium 8.9 (8.4-10.2) mg/dL Total Bilirubin 0.4 (0.2-1.3) mg/dL AST 89 H (17-59) U/L ALT 107 H (21-72) U/L Alkaline Phosphatase 85 (38-126) U/L Total Protein 6.7 (6.3-8.2) g/dL Albumin 3.7 (3.5-5.0) g/dL Disposition Clinical Impression: Alcohol intoxication, Cold Disposition: HOME SELF-CARE Condition: Stable Instructions: Alcohol Intoxication (ED) Additional Instructions: Please use medication as discussed. Please follow up with family doctor if symptoms have not improved over the next two days. Please return to the emergency room if your symptoms increase or worsen or for any other concerns. Please see list of facilities in the area for UTIs seek half-way. Referrals: None,Stated [Primary Care Provider] - 1-2 days Mallory Avelar MD [STAFF PHYSICIAN] - 1-2 days Time of Disposition: 18:41
[2016-09-23] MEDS ORDERED: SODIUM CHLORIDE 0.9% 1,000 ML IV STA (16:55)
[2016-09-23] MEDS ORDERED: LORazepam 2 MG/ML SYRINGE IV STA (17:04)
[2016-09-23 17:08] VITALS: TEMP 97.2
[2016-09-23 17:31] LABS: Basophils % (A) 0 %; CHCM 33.3; Eosinophils # (A) 0.1 k/uL (0-0.7); Eosinophils % (A) 1 %; HCT 38.1 % (39.0-53.0); HDW 2.62; HGB 12.1 gm/dL (13.0-17.5); Luc # (Auto) 0.26; Luc % (Auto) 3; Lymphocytes # (A) 1.6 k/uL (1.0-4.8); Lymphocytes % (A) 18 %; MCH 28.7 pg (25.0-35.0); MCHC 31.8 g/dL (31.0-37.0); MCV 90.4 fL (80.0-100.0); Monocytes # (A) 0.7 k/uL (0-1.0); Monocytes % (A) 8 %; Neutrophils # (A) 6.4 k/uL (1.3-7.7); Neutrophils % (A) 70 %; RBC 4.21 m/uL (4.30-5.90); RDW 14.8 % (11.5-15.5); WBC 9.1 k/uL (3.8-10.6); WBC (Perox) 9.18
[2016-09-23 17:42] LABS: ALT 107 U/L (21-72); AST 89 U/L (17-59); Alkaline Phosphatase 85 U/L (38-126); Anion Gap 13 mmol/L; Blood Urea Nitrogen 28 mg/dL (9-20); Calcium 8.9 mg/dL (8.4-10.2); Carbon Dioxide 25 mmol/L (22-30); Chloride 97 mmol/L (98-107); Glucose 89 mg/dL (74-99); Non-African American GFR(MDRD) 59 (>60 ml/min/1.73 sqM); Potassium 3.8 mmol/L (3.5-5.1); Sodium 135 mmol/L (137-145); Total Bilirubin 0.4 mg/dL (0.2-1.3); Total Protein 6.7 g/dL (6.3-8.2)
[2016-09-23 19:31] VITALS: BP 133/85; PULSE 87; RESP 14
== END 2016-09-23 20:00 | disposition home or self-care (01) ==
LOC: EC 16:28
DX: F10.129 Alcohol abuse with intoxication, unspecified (principal); R68.83 Chills (without fever); I25.10 Atherosclerotic heart disease of native coronary artery without angina pectoris; I25.2 Old myocardial infarction; Z95.1 Presence of aortocoronary bypass graft; F17.200 Nicotine dependence, unspecified, uncomplicated
CPT/HCPCS: 96374; 82075; 36415; 80053; 85025; 99284; 96361 ×2; J2060

== ENCOUNTER 2016-09-23 21:34 | Inpatient (IN) | payer MEDICARE ==
--- NOTE | 2016-09-23 23:09 | XR ---
EXAMINATION TYPE: XR chest 1V portable DATE OF EXAM: 09/23/2016 10:59 PM COMPARISON: 09/18/2016 HISTORY: History of chest pain CAD [place] hypertension. TECHNIQUE: Single frontal view of the chest is obtained. Portable study upright 09/23/2016 10:54 PM ho urs FINDINGS: There is no focal air space opacity, pleural effusion, or pneumothorax seen. The cardiac silhouette size is within normal limits. Atherosclerotic calcification is noted in the tortuous ect atic thoracic aortic arch. Sternotomy changes are noted. The osseous structures are intact. IMPRESSION: No acute process.
[2016-09-24 00:29] LABS: Basophils % (A) 0 %; CH 30.2; CHCM 33.9; Eosinophils # (A) 0.1 k/uL (0-0.7); Eosinophils % (A) 1 %; HCT 37.4 % (39.0-53.0); HDW 2.75; HGB 12.2 gm/dL (13.0-17.5); Luc # (Auto) 0.17; Luc % (Auto) 2; Lymphocytes # (A) 1.7 k/uL (1.0-4.8); Lymphocytes % (A) 21 %; MCH 29.1 pg (25.0-35.0); MCHC 32.6 g/dL (31.0-37.0); MCV 89.2 fL (80.0-100.0); Mean Platelet Volume 8.7; Monocytes # (A) 0.7 k/uL (0-1.0); Monocytes % (A) 9 %; Neutrophils # (A) 5.1 k/uL (1.3-7.7); Neutrophils % (A) 66 %; RBC 4.19 m/uL (4.30-5.90); RDW 14.9 % (11.5-15.5); WBC 7.8 k/uL (3.8-10.6); WBC (Perox) 7.92
[2016-09-24 00:48] LABS: Amylase 83 U/L (30-110); Anion Gap 10 mmol/L; Calcium 9.3 mg/dL (8.4-10.2); Carbon Dioxide 24 mmol/L (22-30); Chloride 102 mmol/L (98-107); Non-African American GFR(MDRD) >60 (>60 ml/min/1.73 sqM); Sodium 136 mmol/L (137-145)
[2016-09-24 00:52] LABS: Blood Urea Nitrogen 31 mg/dL (9-20); Glucose 98 mg/dL (74-99); Magnesium 2.1 mg/dL (1.6-2.3); Potassium 5.8 mmol/L (3.5-5.1)
[2016-09-24 00:53] LABS: ALT 94 U/L (21-72); AST 98 U/L (17-59); Alkaline Phosphatase 80 U/L (38-126); Total Bilirubin 1.1 mg/dL (0.2-1.3)
[2016-09-24 01:06] LABS: Troponin I 0.034 ng/mL (0.000-0.034)
[2016-09-24 01:09] LABS: INR 0.9 (<1.1); Partial Thromboplastin Time 22.1 sec (22.0-30.0); Prothrombin Time 9.7 sec (9.0-12.0)
[2016-09-24 02:17] LABS: Appearance,Urine Clear (Clear); Bilirubin,Urine Negative (Negative); Glucose,Urine (UA) Negative (Negative); Ketones,Urine Negative (Negative); Leukocyte Esterase,Urine Negative (Negative); Nitrite,Urine Negative (Negative); PH, Urine 6.5 (5.0-8.0); Protein,Urine Trace (Negative); Specific Gravity,Urine 1.009 (1.001-1.035); UA Billing (MACRO vs. MICRO) CHEM; Urobilinogen,Urine <2.0 mg/dL (<2.0)
[2016-09-24] MEDS ORDERED: IBUPROFEN 600 MG TAB PO STA (02:42)
[2016-09-24] MEDS ORDERED: RX INFO: IV CONTRAST WAS GIVEN 1 EACH MISC MISCELLANE PRN (02:43)
[2016-09-24] MEDS ORDERED: SODIUM CHLORIDE 0.9% 500 ML IV STA (03:09)
--- NOTE | 2016-09-24 03:47 | CT ---
EXAMINATION TYPE: CT chest angio for PE DATE OF EXAM: 09/24/2016 3:00 AM COMPARISON: August 31, 2016 HISTORY: chest pain/elevated D-dimer CT DLP: 217.10 mGycm Automated exposure control for dose reduction was used. CONTRAST: CT Chest for pulmonary embolism performed with with IV Contrast, patient injected with 65 mL of Omnip aque 350. FINDINGS: LUNGS: Diffuse emphysematous changes and chronic interstitial lung disease changes are noted bilatera lly without significant change. Stable calcified granuloma is noted in the right lung base. The lungs are grossly clear, there is no concerning parenchymal mass or nodule identified. There is no pleur al effusion or pneumothorax seen. The tracheobronchial tree is patent. MEDIASTINUM: There is satisfactory enhancement of the pulmonary artery and its branches, there is no CT evidence for pulmonary embolism. There are no greater than 1 cm hilar or mediastinal lymph nodes. No pericardial effusion is seen. Examination aorta measures 4.2 cm in greatest AP diameter in the axial image 64 with mild aneurysmal dilatation without significant change since previous study. Mild atherosclerotic calcification is not ed in the aortic arch. Postsurgical changes of sternotomy are present. Calcified subcarinal lymph nod es are again noted. OTHER: Mild wedge compression deformities of lower thoracic vertebral bodies are most likely old wit h the degenerative changes. IMPRESSION: 1. No evidence of acute pulmonary embolism. 2. No significant interval change. 3. Granulomatous disease changes in the lungs. 4. Stable aneurysm of ascending aorta measuring 4.2 cm.
--- NOTE | 2016-09-24 04:11 | CT ---
EXAMINATION TYPE: CT abdomen pelvis wo con DATE OF EXAM: 09/24/2016 3:54 AM COMPARISON: NONE HISTORY: abd pain CT DLP: 257.30 mGycm Automated exposure control for dose reduction was used. TECHNIQUE: Helical acquisition of images was performed from the lung bases through the pelvis. FINDINGS: LUNG BASES: No significant abnormality is appreciated. LIVER/GB: Liver appears unremarkable. Cholecystectomy changes are present. PANCREAS: No significant abnormality is seen. SPLEEN: Mild granulomatous calcification is noted in the spleen. ADRENALS: No significant abnormality is seen. KIDNEYS: No significant abnormality is seen. Contrast is seen in the pelvicalyceal systems probably r elated to previous contrast injection. RETROPERITONEAL ADENOPATHY: None visualized REPRODUCTIVE ORGANS: Prostate gland is slightly prominent in size. URINARY BLADDER: Is opacified with contrast and appears grossly unremarkable. PELVIC ADENOPATHY: None visualized. OSSEOUS STRUCTURES: No significant abnormality is seen. BOWEL: Mild to moderate gas and fluid distention of small bowel loops is noted with ileus changes. P ossibility of enteritis changes cannot be excluded. Stomach appears grossly unremarkable. Colonic bowel loops showed mild to moderate gas and fecal distention. There is mucosal thickening in the transverse colon in the axial image 13 and the sigmoid colon in the axial image 100 and there is possibility of mild colitis changes. Colonic diverticulosis is noted. OSSEOUS STRUCTURES: Mild to moderate degenerative arthritic changes in the thoracal lumbar spine with mild old wedge compression deformities of lower thoracic vertebrae. OTHER: Mild to moderate atherosclerotic calcification is noted in the abdominal aorta with aneurysmal dilatation in the infrarenal abdominal aorta with the greatest AP diameter of 3.3 cm and also anothe r area of 2.9 cm in the distal portion just above the bifurcation. IMPRESSION: 1. POSSIBLE ENTERITIS AND COLITIS CHANGES. 2. ANEURYSMAL DILATATION OF ABDOMINAL AORTA WITH THE GREATEST AP DIAMETER OF 3.3 CM. 3. CHOLECYSTECTOMY.
[2016-09-24] MEDS ORDERED: DICYCLOMINE 20 MG TAB PO STA (04:37)
[2016-09-24] MEDS ORDERED: MAG HYDROX/AL HYDROX/SIMETH 30 ML, HYOSCYAMINE ELIXIR 10 ML, CIMETIDINE HCL 300 MG, LID... PO STA ×4 (05:32)
[2016-09-24] MEDS ORDERED: LORazepam 2 MG/ML SYRINGE IV STA (05:32)
[2016-09-24] MEDS ORDERED: NITROGLYCERIN SL TABS 0.4 MG TAB SUBLINGUAL PRN (06:42)
--- NOTE | 2016-09-24 06:42 | ED ---
Chest Pain HPI - General Chief Complaint: Chest Pain Stated Complaint: chest pain Time Seen by Provider: 09/23/16 22:29 Source: patient Mode of arrival: wheelchair Limitations: no limitations - History of Present Illness Initial Comments: This patient is 60-year-old man who has been having episodes of chest pain, substernal, radiating to his back. He indicates that the pain has been constant , going on for 3 hours this episode. She has had little bit of nausea and some shortness of breath. He was previously admitted for chest pain but has not had recent stress test or heart cath. Patient with smoking history. MD Complaint: chest pain Onset/Timin -: hour(s) Onset: during rest Pain Location: substernal Pain Radiation: back Severity: moderate Quality: aching Consistency: constant Improves With: nothing Worsens With: nothing - Related Data Previous Rx's Medication Instructions Recorded Collagenase [Santyl] 1 applic TOPICAL DAILY #1 tube 08/13/16 Escitalopram [Lexapro] 10 mg PO DAILY #30 tablet 08/13/16 Lisinopril [Zestril] 10 mg PO DAILY tab 08/13/16 Omeprazole [PriLOSEC] 40 mg PO QAM #30 capsule. 08/13/16 Thiamine [Vitamin B-1] 100 mg PO DAILY #30 tablet 08/28/16 Mag Hydrox/Al Hydrox/Simeth 30 ml PO TID 30 Days 08/31/16 [Maalox] Folic Acid 1 mg PO DAILY #30 tablet 09/04/16 Aspirin EC [Ecotrin Low Dose] 81 mg PO DAILY #1 tablet. 09/07/16 Atorvastatin [Lipitor] 40 mg PO HS tab 09/21/16 Clopidogrel [Plavix] 75 mg PO DAILY tab 09/21/16 Metoprolol Tartrate [Lopressor] 50 mg PO BID tab 09/21/16 traMADol HCL [Ultram] 50 mg PO Q4HR PRN #30 tab MDD 8 09/21/16 TABS Allergies Allergy/AdvReac Type Severity Reaction Status Date / Time No Known Allergies Allergy Verified 09/23/16 23:29 Review of Systems ROS Statement: Those systems with pertinent positive or pertinent negative responses have been documented in the HPI. ROS Other: All systems not noted in ROS Statement are negative. Constitutional: Denies: fever, chills ENT: Denies: throat pain Respiratory: Reports: dyspnea. Denies: cough, wheezes Cardiovascular: Reports: chest pain. Denies: palpitations, edema, syncope Gastrointestinal: Reports: nausea. Denies: abdominal pain, vomiting, diarrhea, melena, hematochezia Genitourinary: Denies: dysuria Musculoskeletal: Denies: back pain Skin: Denies: rash Neurological: Denies: headache, weakness, numbness Past Medical History Past Medical History: Coronary Artery Disease (CAD), Eye Disorder, Hyperlipidemia, Hypertension, Myocardial Infarction (ND), Renal Disease Additional Past Medical History / Comment(s): Alcoholism, CKD stage III, gastritis, chronic cervical and back pain, R eye injury with surgery-limited sight. Last Myocardial Infarction Date:: june, History of Any Multi-Drug Resistant Organisms: None Reported Past Surgical History: Appendectomy, Back Surgery, Coronary Bypass/CABG, Orthopedic Surgery Additional Past Surgical History / Comment(s): L shoulder surgery, colonoscopy, R eye lens surgery due to injury, 06/2016 cath with perforation of the RCA during PCI resulting vessel bypass and pericardiocentesis-pt states he believes he had triple bypass. Past Anesthesia/Blood Transfusion Reactions: No Reported Reaction Past Psychological History: Depression Additional Psychological History / Comment(s): Pt currently is living in a motel. [place] He [place] not drive. He gets to [place] by cab or his son takes him. Smoking Status: Current every day smoker Past Alcohol Use History: Daily Additional Past Alcohol Use History / Comment(s): Pt states he likes to drink a pint of vodka a day. He started smoking in 1969 and is a 1/2 ppd smoker. Past Drug Use History: Marijuana Additional Drug Use History / Comment(s): Pt states he smokes 2 joints per day for pain control. He states he has medical [facility] card. - Past Family History Father Family Medical History: Myocardial Infarction (ND) Additional Family Medical History / Comment(s): Father of a ND at the age of 71 yrs. Mother Family Medical History: Cancer Additional Family Medical History / Comment(s): Mother had breast cancer-bone cancer and at the age of 65 yrs. General Exam Limitations: no limitations General appearance: alert, in no apparent distress Head exam: Present: atraumatic, normocephalic Eye exam: Present: normal appearance. Absent: scleral icterus, conjunctival injection Neck exam: Present: normal inspection Respiratory exam: Present: normal lung sounds bilaterally, wheezes. Absent: respiratory distress, rales, rhonchi, stridor, chest wall tenderness, accessory muscle use, decreased breath sounds Cardiovascular Exam: Present: regular rate, normal rhythm, normal heart sounds. Absent: systolic murmur, diastolic murmur, rubs, gallop GI/Abdominal exam: Present: soft. Absent: distended, tenderness, guarding, rebound, mass Extremities exam: Present: normal inspection, normal capillary refill. Absent: pedal edema, calf tenderness Back exam: Present: normal inspection. Absent: CVA tenderness (R), CVA tenderness (L) Neurological exam: Present: alert Skin exam: Present: warm, dry, intact, normal color. Absent: rash Course Vital Signs 09/23/16 09/24/16 09/24/16 22:00 02:09 06:06 Temperature 97.9 F 98.7 F 97.9 F Pulse Rate 117 H 110 H 98 Respiratory 18 20 20 Rate Blood Pressure 136/92 137/101 171/101 O2 Sat by Pulse 98 98 98 Oximetry 09/24/16 07:54 Temperature 98.3 F Pulse Rate 94 Respiratory 16 Rate Blood Pressure 151/86 O2 Sat by Pulse 98 Oximetry Disposition Clinical Impression: Chest pain Disposition: ADMITTED IP TO THIS HOSP Condition: Fair
[2016-09-24 08:54] LABS: Creatine Kinase MB 1.1 ng/mL (0.0-2.4)
[2016-09-24 09:02] LABS: Troponin I 0.042 ng/mL (0.000-0.034)
[2016-09-24] MEDS ORDERED: LORazepam 2 MG/ML SYRINGE IV PRN ×3 (09:57)
[2016-09-24] MEDS ORDERED: THIAMINE 100 MG/ML 2 ML VIAL IM STA (09:57)
--- NOTE | 2016-09-24 10:24 | P.CRDCN ---
History of Present Illness Consult date: 09/24/16 Chief complaint: Chest discomfort/epigastric discomfort History of present illness: This is a pleasant 60-year-old gentleman with a past medical history significant for CAD with prior bypass was performed in [facility] with unknown details at this point, hypertension, dyslipidemia, presented to the hospital complaining of chest discomfort. The patient just was admitted to the hospital last week with alcohol intoxication and we get involved to see the patient at that point because his cardiac enzymes were slightly abnormal. At that point, he wasn't having any chest pain or discomfort and the EKG did not show any significant or ischemic changes. The patient was discharged home in stable medical condition. He presented to the hospital again complaining this time of chest discomfort as a sharp kind of discomfort without any radiation. On physical examination I noticed epigastric tenderness. The first set of cardiac enzymes came in to be normal and the second set came in to be abnormal. I don't have the EKG at this point. We are in process to obtain the EKG from the emergency room. I will follow-up with 1 more set of cardiac enzymes. Obtain the EKG. Obtain an ultrasound of the abdomen to rule out any intra-abdominal process. If the ultrasound is negative I will consider proceeding with heart catheterization. Past Medical History Past Medical History: Coronary Artery Disease (CAD), Eye Disorder, Hyperlipidemia, Hypertension, Myocardial Infarction (PR), Renal Disease Additional Past Medical History / Comment(s): Alcoholism, CKD stage III, gastritis, chronic cervical and back pain, R eye injury with surgery-limited sight. Last Myocardial Infarction Date:: june, History of Any Multi-Drug Resistant Organisms: None Reported Past Surgical History: Appendectomy, Back Surgery, Coronary Bypass/CABG, Orthopedic Surgery Additional Past Surgical History / Comment(s): L shoulder surgery, colonoscopy, R eye lens surgery due to injury, 06/2016 cath with perforation of the RCA during PCI resulting vessel bypass and pericardiocentesis-pt states he believes he had triple bypass. Past Anesthesia/Blood Transfusion Reactions: No Reported Reaction Past Psychological History: Depression Additional Psychological History / Comment(s): Pt currently is living in a motel. [place] He does not drive. He gets to [employer] by cab or his son takes him. Smoking Status: Current every day smoker Past Alcohol Use History: Daily Additional Past Alcohol Use History / Comment(s): Pt states he likes to drink a pint of vodka a day. He started smoking in 1969 and is a 1/2 ppd smoker. Past Drug Use History: Marijuana Additional Drug Use History / Comment(s): Pt states he smokes 2 joints per day for pain control. He states he has medical [employer] card. - Past Family History Father Family Medical History: Myocardial Infarction (PR) Additional Family Medical History / Comment(s): Father of a PR at the age of 71 yrs. Mother Family Medical History: Cancer Additional Family Medical History / Comment(s): Mother had breast cancer-bone cancer and at the age of 65 yrs. Medications and Allergies Allergies Allergy/AdvReac Type Severity Reaction Status Date / Time No Known Allergies Allergy Verified 09/23/16 23:29 Physical Exam Vitals: Vital Signs Temp Pulse Pulse Resp BP BP Pulse Ox 09/24/16 10:10 96 09/24/16 08:35 98.6 F 86 18 156/103 99 09/24/16 07:54 98.3 F 94 16 151/86 98 Intake and Output 09/23/16 09/24/16 09/24/16 22:59 06:59 14:59 Other: Voiding Method Urinal Weight 67.1 kg Patient Weight 09/25/16 06:59 Weight 67.1 kg - Constitutional General appearance: no acute distress - Respiratory Respiratory: bilateral: CTA - Cardiovascular Rhythm: regular Heart sounds: normal: S1, S2 Results 09/23/16 23:48 09/23/16 23:48 Cardiac Enzymes 09/24/16 Range/Units 07:43 CK-MB (CK-2) 1.1 (0.0-2.4) ng/mL Troponin I 0.042 H* (0.000-0.034) ng/mL Current Medications Generic Name Dose Route Start Last Admin Trade Name Freq PRN Reason Stop Dose Admin Al Hydroxide/Mg Hydroxide 30 ml 09/24/16 09:00 Maalox PO TID [facility] Aspirin 81 mg 09/24/16 09:00 Aspirin PO DAILY [facility] Atorvastatin Calcium 40 mg 09/24/16 21:00 Lipitor PO HS [facility] Clopidogrel Bisulfate 75 mg 09/24/16 09:00 Plavix PO DAILY [facility] Collagenase 1 applic 09/24/16 09:00 Santyl TOPICAL DAILY [facility] Escitalopram Oxalate 10 mg 09/24/16 09:00 Lexapro PO DAILY [facility] Folic Acid 1 mg 09/24/16 12:00 Folic Acid PO DAILY@1200 [facility] Lisinopril 10 mg 09/24/16 09:00 Zestril PO DAILY SARAH Lorazepam 1 mg 09/24/16 09:57 Ativan IV Q2HR PRN CIWA 8 or 9 Lorazepam 1 mg 09/24/16 09:57 Ativan IV Q1HR PRN CIWA 10 to 15 Lorazepam 2 mg 09/24/16 09:57 Ativan IV Q1HR PRN CIWA 16 or higher Metoprolol Tartrate 50 mg 09/24/16 09:00 Lopressor PO BID [facility] Miscellaneous Information 1 each 09/24/16 02:43 Rx Info: Iv Contrast Was Given MISCELLANE 09/26/16 02:43 DAILY PRN Per Protocol Nitroglycerin 0.4 mg 09/24/16 06:42 Nitrostat SUBLINGUAL Q5M PRN Chest Pain Pantoprazole Sodium 40 mg 09/24/16 07:30 Protonix PO AC-BRKFST [facility] Thiamine HCl 100 mg 09/24/16 12:00 Vitamin B-1 PO DAILY@1200 [facility] Thiamine HCl 100 mg 09/24/16 17:00 Vitamin B-1 PO BID@1200,1700 [facility] Tramadol HCl 50 mg 09/24/16 06:44 Ultram PO Q4HR PRN Pain Intake and Output 09/23/16 09/24/16 09/24/16 22:59 06:59 14:59 Other: Voiding Method Urinal Weight 67.1 kg Patient Weight 09/25/16 06:59 Weight 67.1 kg Assessment and Plan Plan: Assessment #1 chest/epigastric discomfort #2 known CAD with prior CABG with unknown details #3 history of alcohol abuse #4 multiple comorbid conditions Plan #1 follow-up with the serial cardiac enzymes #2 review the EKG which is not available at this point #3 ultrasound of the abdomen to rule out any intra-abdominal process #4 possible need for heart catheterization.
[2016-09-24] MEDS: PANTOPRAZOLE 40 MG TABLET PO SCH (10:50)
[2016-09-24] MEDS: ESCITALOPRAM 10 MG TAB PO SCH (11:29)
[2016-09-24] MEDS: LISINOPRIL 10 MG TAB PO SCH (11:29)
[2016-09-24] MEDS: METOPROLOL TARTRATE 50 MG TAB PO SCH ×2 (11:29→21:38)
[2016-09-24] MEDS: ASPIRIN 81 MG CHEW PO SCH (11:29)
[2016-09-24] MEDS: COLLAGENASE 250 UNIT/GM OINTMENT 30 GM TUBE TOPICAL SCH (11:29)
[2016-09-24] MEDS: FOLIC ACID 1 MG TAB PO SCH (11:29)
[2016-09-24] MEDS: traMADol 50 MG TAB PO PRN ×2 (11:32→21:41)
[2016-09-24] MEDS ORDERED: THIAMINE 100 MG TAB PO SCH (12:00)
[2016-09-24] MEDS: MAG HYDROX/AL HYDROX/SIMETH 30 ML CUP PO SCH ×3 (12:33→21:38)
[2016-09-24 13:00] LABS: Troponin I 0.077 ng/mL (0.000-0.034)
[2016-09-24] MEDS: CLOPIDOGREL 75 MG TAB PO SCH (13:20)
[2016-09-24] MEDS: THIAMINE 100 MG TAB PO SCH (17:45)
[2016-09-24] MEDS: ATORVASTATIN 40 MG TAB PO SCH (21:38)
--- NOTE | 2016-09-24 23:41 | HP ---
DATE OF ADMISSION: CHIEF COMPLAINT: Chest discomfort. HISTORY OF ILLNESS: Mr. Macais is a 60-year-old male with a known history of coronary artery disease, status post coronary artery bypass graft, hypertension, hyperlipidemia, alcohol abuse and nicotine addiction as well as CKD III. He came to the hospital with complaints of chest discomfort mainly in the mid sternal region and across the chest wall. No suicidal ideation. Patient was complaining of associated nausea. No vomiting. Patient was recently admitted to the hospital with alcohol abuse as well and acute kidney injury. Initial EKG did not show any significant ischemic changes. Patient was initially discharged home in stable condition. He presented to the hospital again, complaining of chest discomfort as sharp discomfort without any radiation. Patient's initial troponin was negative. Second troponin is trending up at this time. He was admitted to the hospital for further elevation by Cardiology, who is planning for cardiac catheterization, most likely tomorrow. Otherwise patient is free of chest pain. Patient's last drink was about 2 ( ) back. Continues to smoke as well. REVIEW OF SYSTEMS: CONSTITUTIONAL: No fever. No chills. RESPIRATORY: No cough or sputum production. CARDIOVASCULAR: No chest pain. No shortness of breath now. No leg swelling. ABDOMEN: No nausea or vomiting. No abdominal pain. No diarrhea. No constipation. GENITOURINARY: Negative. ENDOCRINE: Negative. PSYCHIATRY: Negative. SKIN: Negative. All other fourteen-point review of systems negative except as above. Past medical history includes: 1. Coronary artery disease. 2. History of bypass graft. 3. CKD stage III. 4. Alcohol abuse. 5. Alcoholic gastritis. 6. Chronic cervical and back pain. 7. Right eye surgery and injury with the surgery. 8. Limited sight. PAST SURGICAL HISTORY: 1. Appendectomy. 2. Back surgery. 3. Coronary artery bypass graft. 4. Left shoulder surgery. 5. Colonoscopy. 6. Right eye lens surgery due to injury. 7. History of catheterization with perforation of RCA during [facility] resulting in vessel bypass and pericardiocentesis. PSYCHOSOCIAL HISTORY: Depression. SOCIAL HISTORY: Patient currently lives in a motel. [place]. He does not drive. Currently an everyday smoker. He started smoking in the 1970s and is a [id number]-day smoker. Like to drink a pint of vodka a day. Last drink about 2 days back. Patient states he smokes 2 joints per day for pain control. He states that he has medical marijuana card. FAMILY HISTORY: Father had FL, of FL at the age of 71. Mother had bone cancer, breast cancer. ALLERGIES: NO KNOWN DRUG ALLERGIES. Home medications include: 1. Collagenase (topical). 2. Lexapro. 3. Lisinopril. 4. Omeprazole. 5. Thiamine. 6. Maalox. 7. Folic acid. 8. Aspirin. 9. Atorvastatin. 10. Plavix. 11. Metoprolol. 12. Tramadol. PHYSICAL EXAMINATION: Ilcsl-deqe-fne male lying in bed. Awake, alert, oriented x3. Appears to be lethargic. VITALS: Blood pressure is 151/94. Pulse is 91, respiration 18, temperature afebrile, pulse ox 98% on room air. HEENT: Atraumatic, normocephalic. No nasal or ear discharge. NECK: Supple. No JVD. No thyromegaly. CVS: S1, S2 heard. No murmurs. No gallop. LUNGS: Bilateral air entry is present. No wheezing. No crackles. ABDOMEN: Soft. Mild epigastric tenderness. No guarding. No rigidity. Bowel sounds are present. 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 No focal neurologic deficit. Cranial nerves grossly intact. EXTREMITIES: No edema. Pulses palpable bilaterally. No clubbing or cyanosis. PSYCHIATRIC: Cooperative. LABORATORY DATA: WBC 7.8, hemoglobin 12.2, platelets 244. D-dimer is 0.96. Sodium 136, potassium 5.8, hemolyzed, chloride 102. Bicarb is 24. BUN 31, creatinine 1.1. AST is 98. ALT is 94. Troponin 0.034, 0.042 and 0.077. UA negative for infection. Chest x-ray: No acute process. CT angiogram of the chest: No evidence of acute pulmonary embolism. No significant interval change. Granulomatous disease changes in the lung. Stable aneurysm of ascending aorta measuring 4.[address] abdomen and pelvis: Possible enteritis and colitis changes. Aneurysmal dilatation of the abdominal aorta with greatest AP diameter of 3.3 cm. History of cholecystectomy. IMPRESSION: 1. Chest pain in a patient with known history of coronary artery disease with prior coronary artery bypass graft. 2. Elevated troponin level; possible [id number] myocardial infarction. 3. Alcohol abuse with a history of alcoholic gastritis. 4. Abdominal aortic aneurysm measuring 3.3 cm. 5. Ascending aorta aneurysm measuring 4.2 cm. 6. Nicotine addiction. 7. Hyponatremia, most likely hypovolemic. 8. Hyperkalemia, most likely secondary to hemolyzed sample. 9. Hyperlipidemia. 10. History of myocardial infarction. 11. Right eye surgery with limited sight secondary to injury. 12. Chronic cervical and back pain. DISCUSSION AND PLAN: Aeeqo-ilqi-tay male with known history of coronary artery disease, admitted to the hospital with chest discomfort and elevated troponin levels currently. Will continue the telemetry monitoring. Continue with the aspirin and beta blockers. Cardiology is following this patient. They are planning for cardiac catheterization after the ultrasound abdomen. Continue with telemetry monitoring and serial EKGs and troponins. Further recommendations based on the clinical course. Prognosis guarded.
[2016-09-25 06:41] LABS: Basophils % (A) 0 %; CH 29.6; CHCM 32.4; Eosinophils # (A) 0.1 k/uL (0-0.7); Eosinophils % (A) 1 %; HDW 2.62; Luc # (Auto) 0.24; Luc % (Auto) 4; Lymphocytes # (A) 1.9 k/uL (1.0-4.8); Lymphocytes % (A) 30 %; MCH 29.7 pg (25.0-35.0); MCHC 32.4 g/dL (31.0-37.0); MCV 91.7 fL (80.0-100.0); Mean Platelet Volume 7.3; Monocytes # (A) 0.7 k/uL (0-1.0); Monocytes % (A) 11 %; Neutrophils # (A) 3.6 k/uL (1.3-7.7); Neutrophils % (A) 55 %; RBC 4.04 m/uL (4.30-5.90); RDW 14.7 % (11.5-15.5); WBC 6.6 k/uL (3.8-10.6); WBC (Perox) 6.82
[2016-09-25] MEDS: PANTOPRAZOLE 40 MG TABLET PO SCH (06:44)
[2016-09-25 06:49] LABS: Anion Gap 10 mmol/L; Blood Urea Nitrogen 25 mg/dL (9-20); Calcium 9.2 mg/dL (8.4-10.2); Carbon Dioxide 25 mmol/L (22-30); Chloride 96 mmol/L (98-107); Cholesterol 169 mg/dL (<200); Glucose 94 mg/dL (74-99); HDL Cholesterol 89 mg/dL (40-60); Non-African American GFR(MDRD) >60 (>60 ml/min/1.73 sqM); Potassium 4.1 mmol/L (3.5-5.1); Sodium 131 mmol/L (137-145); Triglycerides 68 mg/dL (<150)
--- NOTE | 2016-09-25 08:04 | US ---
EXAMINATION TYPE: US abdomen complete DATE OF EXAM: 09/25/2016 7:44 AM COMPARISON: Previous renal ultrasound dated 09/08/2016. CLINICAL HISTORY: pain. Nausea, cholecystectomy EXAM MEASUREMENTS: Liver Length: 14.0 cm Gallbladder Wall: Surgically absent CBD: 0.4 cm Spleen: 5.8 cm Right Kidney: 10.5 x 4.8 x 5.6 cm Left Kidney: 9.9 x 5.1 x 4.3 cm TECHNOLOGIST IMPRESSION: Pancreas: Obscured by overlying bowel gas Liver: slightly heterogeneous Gallbladder: Surgically absent CBD: appears wnl Spleen: granulomas noted Right Kidney: No evidence of hydronephrosis or mass Left Kidney: cystic area upper pole = 1.4 x 1.5 x 1.6cm Upper IVC: visualized portion appears wnl Abd Aorta: limited evaluation due to overlying bowel, portions obscured, AAA measuring 3.1cm The liver is homogenous. The intrahepatic portion of the IVC and proximal abdominal aorta are within normal limits. The gallbladder has been removed. Common bile duct is unremarkable. The pancreas is obscured. There is evidence of old granulomatous disease of the spleen. IMPRESSION: 1. Stable left renal cystic lesion. 2. Nonvisualization of the pancreas. 3. Status post cholecystectomy. 4. Old granulomatous disease of the spleen.
[2016-09-25] MEDS ORDERED: ASPIRIN 325 MG TAB PO SCH (09:00)
[2016-09-25] MEDS: ASPIRIN 81 MG CHEW PO SCH (09:23)
[2016-09-25] MEDS: ESCITALOPRAM 10 MG TAB PO SCH (09:24)
[2016-09-25] MEDS: CLOPIDOGREL 75 MG TAB PO SCH (09:24)
[2016-09-25] MEDS: LISINOPRIL 10 MG TAB PO SCH (09:24)
[2016-09-25] MEDS: METOPROLOL TARTRATE 50 MG TAB PO SCH ×2 (09:24→21:05)
[2016-09-25] MEDS: traMADol 50 MG TAB PO PRN (09:25)
[2016-09-25] MEDS: FOLIC ACID 1 MG TAB PO SCH (11:30)
[2016-09-25] MEDS: THIAMINE 100 MG TAB PO SCH ×2 (11:30→16:29)
[2016-09-25] MEDS: MAG HYDROX/AL HYDROX/SIMETH 30 ML CUP PO SCH ×3 (11:31→21:05)
[2016-09-25] MEDS: COLLAGENASE 250 UNIT/GM OINTMENT 30 GM TUBE TOPICAL SCH (11:31)
[2016-09-25] MEDS ORDERED: ATORVASTATIN 80 MG TAB PO STA (13:25)
[2016-09-25] MEDS ORDERED: ASPIRIN 325 MG TAB PO STA (13:25)
[2016-09-25] MEDS ORDERED: NITROGLYCERIN SL TABS 0.4 MG TAB SUBLINGUAL PRN (13:25)
[2016-09-25] MEDS ORDERED: ALPRAZolam 0.25 MG TAB PO PRN (13:25)
--- NOTE | 2016-09-25 13:40 | P.PN ---
Subjective Principal diagnosis: Chest pain This is a pleasant 60-year-old gentleman with a past medical history significant for CAD with prior bypass was performed in [facility] with unknown details at this point, hypertension, dyslipidemia, presented to the hospital complaining of chest discomfort. According to the patient, he had symptoms of chest discomfort off and on almost every other day. His troponins came back to be abnormal. KG showed normal sinus rhythm with no acute changes. Patient was recently in the hospital with chest discomfort, he was also intoxicated with alcohol at that time. On this occasion he was complaining of chest pressure but patient was also having some epigastric discomfort. Ultrasound of the abdomen was performed which revealed a stable left renal cyst. Pancreas not visualized, status post cholecystectomy. Because of the patient's abnormal enzymes and persistence of chest discomfort he was advised to undergo cardiac catheterization. The risks and the benefits were explained to the patient in detail. This will be performed this afternoon by Dr. Nicole. Objective - Vital Signs Vital signs: Vital Signs Temp 98 F 09/25/16 11:34 Pulse 60 09/25/16 11:34 Resp 18 09/25/16 11:34 BP 153/91 09/25/16 11:34 Pulse Ox 97 09/25/16 11:34 Intake & Output 09/24/16 09/25/16 09/25/16 18:59 06:59 18:59 Intake Total 456 10 450 Balance 456 10 450 Weight 67.1 kg 67.9 kg Intake: IV 10 200 0.9 10 200 Oral 456 250 Other: Voiding Method Urinal Urinal Urinal # Voids 1 - Exam PHYSICAL EXAMINATION: HEENT: Head is atraumatic, normocephalic. Pupils equal, round. Neck is supple. There is no elevated jugular venous pressure. HEART EXAMINATION: Heart S1, S2 normal. No murmur or gallop heard. CHEST EXAMINATION: Lungs are clear to auscultation and precussion. No chest wall tenderness is noted on palpation or with deep breathing. ABDOMEN: Soft, nontender. Bowel sounds are heard. No organomegaly noted. EXTREMITIES: 2+ peripheral pulses with no evidence of peripheral edema and no calf tenderness noted. NEUROLOGIC patient is awake, alert and oriented -3. . - Labs CBC & Chem 7: 09/25/16 05:59 09/25/16 05:59 Labs: Abnormal Lab Results - Last 24 Hours (Table) 09/25/16 09/25/16 Range/Units 05:59 05:59 RBC 4.04 L (4.30-5.90) m/uL Hgb 12.0 L (13.0-17.5) gm/dL Hct 37.0 L (39.0-53.0) % Sodium 131 L (137-145) mmol/L Chloride 96 L (98-107) mmol/L BUN 25 H (9-20) mg/dL HDL Cholesterol 89 H (40-60) mg/dL Assessment and Plan (1) HTN (hypertension) Status: Acute (2) Chest pain Status: Acute (3) Alcoholism Status: Acute (4) COPD (chronic obstructive pulmonary disease) Status: Acute (5) Hx of CABG Status: Acute (6) Hyperlipemia Status: Acute Plan: From cardiology's perspective, patient will be scheduled today to undergo cardiac catheterization. The risks and benefits were explained to the patient in detail. Further recommendations will be based on those findings and the patient's clinical course. DNP note has been reviewed, I agree with a documented findings and plan of care. Patient was seen and examined.
[2016-09-25 14:14] VITALS: BMI 22.1
[2016-09-25 15:56] LABS: Glucose,Whole Blood 97 mg/dL (75-99)
[2016-09-25] MEDS: ATORVASTATIN 40 MG TAB PO SCH ×3 (16:24→21:23)
[2016-09-25] MEDS: SODIUM CHLORIDE 0.9% 1,000 ML in EMPTY BAG 1 BAG IV ONE ×2 (16:24→16:36)
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
[2016-09-26] MEDS: PANTOPRAZOLE 40 MG TABLET PO SCH (06:20)
[2016-09-26] MEDS: ASPIRIN 81 MG CHEW PO SCH (06:20)
[2016-09-26] MEDS: MAG HYDROX/AL HYDROX/SIMETH 30 ML CUP PO SCH ×3 (06:21→20:21)
[2016-09-26] MEDS: ESCITALOPRAM 10 MG TAB PO SCH (06:21)
[2016-09-26] MEDS: LISINOPRIL 10 MG TAB PO SCH (06:21)
[2016-09-26] MEDS: METOPROLOL TARTRATE 50 MG TAB PO SCH ×2 (06:21→20:24)
[2016-09-26] MEDS: CLOPIDOGREL 75 MG TAB PO SCH (06:21)
--- NOTE | 2016-09-26 10:10 | PN ---
DATE OF SERVICE: 09/25/2016 INTERVAL HISTORY: Mr. Macias is a 60-year-old male with a known history of coronary artery disease status post coronary artery bypass grafting, hypertension, hyperlipidemia, narcolepsy, history of nicotine addiction and CKD Stage III was admitted to the hospital with complaint of chest comfort. Patient was found to have elevated troponin level and scheduled for cardiac catheterization today. Patient currently seems depressed and psychiatry recommended inpatient transfer once medically stable. Otherwise, currently denied any complaints of chest pain or short of breath. No nausea or vomiting or abdominal pain. No leg swelling. All other fourteen-point review of systems negative except as above. Patient is a poor historian otherwise. CURRENT MEDICATIONS: Reviewed. PHYSICAL EXAMINATION: A 60-year-old male lying in bed comfortably; awake, alert, oriented times three. Appears in no apparent distress. VITALS: Blood pressure is 130/83, pulse is 61, respirations 20, temperature afebrile, Pulse ox 96% on room air. HEENT: Atraumatic, normocephalic. Neck is supple. No JVD. CVS: S1, S2 heard. No murmur. No gallop. LUNGS: Bilateral air entry is present. No wheezing. No crackles. ABDOMEN: Soft, nontender. Bowel sounds present. 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 The patient is extremely lethargic. Able to move all his extremities. EXTREMITIES: No edema or clubbing or cyanosis. PSYCHIATRIC: Cooperative. Nonsuicidal. The patient feels very depressed. LABORATORY DATA: WBC 6.6, hemoglobin 12.0, platelets 287. Sodium 131, potassium 4.4, chloride 96, bicarb is 25. BUN 25, creatinine 1.1. LDL 66, UA negative, elevated troponin. ASSESSMENT: 1. Elevated troponin, possible non-ST elevation myocardial infarction. 2. Chest pain. 3. Major depression. Psychiatric recommend inpatient transfer once medically stable. 4. Alcohol abuse with history of alcoholic gastritis. 5. Abdominal aortic aneurysm measuring 3.3 cm. 6. Ascending aortic aneurysm 4.2 cm. 7. Nicotine addiction. 8. Hyponatremia most likely hypovolemic improved. 9. Hyperkalemia, improved. 10. Hyperlipidemia. 11. History of myocardial infarction. 12. Right eye surgery with limited eye sight secondary to injury. 13. Chronic cervical and back pain. 14. ( ). DISCUSSION AND PLAN: We will continue the current management and continue aspirin and beta blockers and cardiology will perform cardiac catheterization today. Otherwise ultrasound of the abdomen showed no acute findings. We will follow up and continue the current management and further recommendations based on clinical course.
[2016-09-26] MEDS ORDERED: MIDAZOLAM 2 MG/2 ML VIAL ONE (11:05)
[2016-09-26] MEDS ORDERED: LIDOCAINE 2% INJ 20 MG/ML (20 ML MDV) ONE (11:06)
[2016-09-26] MEDS ORDERED: diphenhydrAMINE 50 MG/ML 1 ML VIAL ONE (11:06)
[2016-09-26] MEDS ORDERED: IV FLUID CONTINUATION 1,000 ML IV ONE (11:12)
[2016-09-26] MEDS: COLLAGENASE 250 UNIT/GM OINTMENT 30 GM TUBE TOPICAL SCH (11:14)
[2016-09-26] MEDS ORDERED: MIDAZOLAM 2 MG/2 ML VIAL IV ONE (11:26)
[2016-09-26] MEDS ORDERED: diphenhydrAMINE 50 MG/ML 1 ML VIAL IVP ONE (11:26)
[2016-09-26] MEDS ORDERED: IOHEXOL 350 MG/ML 100 ML BOTTLE INTRATHECA ONE (11:55)
[2016-09-26] MEDS ORDERED: ENALAPRILAT 1.25 MG/ML 1 ML VIAL ONE (11:56)
[2016-09-26] MEDS ORDERED: hydrALAZINE HCL 20 MG/ML 1 ML VIAL ONE (11:56)
[2016-09-26] MEDS ORDERED: ENALAPRILAT 1.25 MG/ML 1 ML VIAL IV ONE (11:59)
[2016-09-26] MEDS ORDERED: hydrALAZINE HCL 20 MG/ML 1 ML VIAL IV ONE (11:59)
[2016-09-26] MEDS ORDERED: RX INFO: IV CONTRAST WAS GIVEN 1 EACH MISC MISCELLANE PRN (12:05)
[2016-09-26] MEDS ORDERED: SODIUM CHLORIDE 0.9% 1,000 ML IV SCH (12:15)
[2016-09-26] MEDS: THIAMINE 100 MG TAB PO SCH ×2 (13:39→18:04)
[2016-09-26] MEDS: FOLIC ACID 1 MG TAB PO SCH (13:40)
[2016-09-26] MEDS: traMADol 50 MG TAB PO PRN ×2 (18:05→23:00)
[2016-09-26] MEDS: ALPRAZolam 0.5 MG TAB PO PRN (18:05)
[2016-09-26] MEDS: ATORVASTATIN 40 MG TAB PO SCH (20:21)
[2016-09-27] MEDS: PANTOPRAZOLE 40 MG TABLET PO SCH (06:36)
[2016-09-27] MEDS: ASPIRIN 81 MG CHEW PO SCH (09:34)
[2016-09-27] MEDS: LISINOPRIL 10 MG TAB PO SCH (09:35)
[2016-09-27] MEDS: ESCITALOPRAM 10 MG TAB PO SCH (09:35)
[2016-09-27] MEDS: METOPROLOL TARTRATE 50 MG TAB PO SCH ×2 (09:35→20:43)
[2016-09-27] MEDS: FOLIC ACID 1 MG TAB PO SCH (09:35)
[2016-09-27] MEDS: THIAMINE 100 MG TAB PO SCH ×2 (09:36→17:36)
[2016-09-27] MEDS: CLOPIDOGREL 75 MG TAB PO SCH (09:56)
[2016-09-27] MEDS: MAG HYDROX/AL HYDROX/SIMETH 30 ML CUP PO SCH ×3 (09:56→20:44)
[2016-09-27] MEDS: COLLAGENASE 250 UNIT/GM OINTMENT 30 GM TUBE TOPICAL SCH (09:56)
[2016-09-27] MEDS: traMADol 50 MG TAB PO PRN (09:58)
--- NOTE | 2016-09-27 10:22 | CC ---
DATE OF SERVICE: 09/26/2016 PERFORMING PHYSICIAN: Hever Gilliam M.D., carrier associate. PROCEDURE PERFORMED: 1. Selective left and right coronary angiogram. 2. SVG to RCA angiogram. 3. Left heart catheterization. 4. Left ventriculography. INDICATIONS: This is a pleasant 60-year-old gentleman who is known to have coronary artery disease and known to have single vessel coronary artery bypass grafting with SVG to RCA in the setting of emergency room where the patient underwent angioplasty of the RCA which was complicated by perforation and the patient was referred for emergent open heart. He presented to the hospital complaining of chest discomfort multiple times. The second time he was ruled in for acute non-ST elevation myocardial infarction. APPROACH: Right common femoral artery. COMPLICATIONS: None. LEVEL OF SEDATION: Moderate. PROCEDURE DESCRIPTION: After obtaining informed consent, the patient was brought to the cardiac medical lab technologist. Right common femoral artery was cannulated using micropuncture technique. The micropuncture wire passed easily, then I placed a 6 Croatian sheath in the right common femoral artery. Subsequently, I did selective right and left coronary angiogram using JL4 and JR4 catheters. After that, I did SVG to RCA angiogram using the JR4 catheter. Then I did left heart catheterization and subsequently left ventriculography using 6 Croatian pigtail catheter. The procedure was completed without any complication. SELECTIVE CORONARY ANGIOGRAM: LEFT MAIN: The left main is a short left main but angiographically normal. It bifurcates into the left circumflex and left anterior descending artery. LEFT CIRCUMFLEX: The left circumflex is a large-caliber vessel and it is a nondominant vessel. The proximal left circumflex is angiographically normal. The mid left circumflex has mild disease only and gives rise into the first OM branch, which is a large-caliber vessel, seems to be angiographically normal. The mid left circumflex after the first OM branch appeared to have a hazy lesion in the range of 30 to 40%. This is by the bifurcation of the second OM, which appeared to have mild disease only. The left circumflex distal to that lesion seems to be angiographically normal. LEFT ANTERIOR DESCENDING ARTERY: The proximal left anterior descending artery appeared to be angiographically normal and gives rises into the first diagonal branch, which appeared to be angiographically normal. The mid LAD is angiographically normal and gives rises into the second diagonal branch, which seems to be angiographically normal. The LAD distally is angiographically normal. RIGHT CORONARY ARTERY: The right coronary artery is 100% occluded in the proximal portion and that is where the RCA was ligated by surgeon. SVG to RCA: SVG to RCA is patent with very sluggish flow. The graft was connected into very small branch, to me looks like the acute marginal branch of the RCA. HEMODYNAMICS: The left ventricular end-diastolic pressure was 12 mmHg and no gradient was identified across the aortic valve. LEFT VENTRICULOGRAPHY: Performed in the LA projection and using a power injection. The left ventricular systolic function seems to be normal with EF about 50%. CONCLUSION: 1. Mild nonobstructive coronary artery disease involving the left coronary system. 2. Ligated right coronary artery in the proximal portion. 3. Patent SVG to very small branch of the right coronary artery with very sluggish flow in the vein graft and big mismatch between the vein graft and the outflow artery. 4. Dilated ascending thoracic aorta. 5. Normal left ventricular systolic function. POSTPROCEDURE MANAGEMENT: 1. Maximize medical treatment. 2. Get the blood pressure under good control. 3. Follow up with the patient.
[2016-09-27] MEDS: ALPRAZolam 0.5 MG TAB PO PRN ×2 (10:25→22:03)
[2016-09-27] MEDS: NICOTINE 14MG/24HR PATCH TRANSDERM SCH (13:08)
[2016-09-27] MEDS: ATORVASTATIN 40 MG TAB PO SCH (20:44)
[2016-09-27] MEDS: HYDROcodone/APAP 5-325MG 1 EACH TAB PO PRN (20:44)
[2016-09-28 06:16] LABS: Basophils % (A) 1 %; CH 29.3; CHCM 31.2; Eosinophils # (A) 0.2 k/uL (0-0.7); Eosinophils % (A) 2 %; HCT 38.8 % (39.0-53.0); HDW 2.53; Hypochromasia Slight; Luc # (Auto) 0.21; Luc % (Auto) 3; Lymphocytes # (A) 2.1 k/uL (1.0-4.8); Lymphocytes % (A) 33 %; MCHC 30.8 g/dL (31.0-37.0); MCV 93.9 fL (80.0-100.0); Mean Platelet Volume 6.9; Monocytes # (A) 0.6 k/uL (0-1.0); Monocytes % (A) 9 %; Neutrophils # (A) 3.3 k/uL (1.3-7.7); Neutrophils % (A) 52 %; RBC 4.13 m/uL (4.30-5.90); RDW 14.6 % (11.5-15.5); WBC 6.4 k/uL (3.8-10.6)
[2016-09-28 06:24] LABS: Anion Gap 12 mmol/L; Calcium 9.4 mg/dL (8.4-10.2); Carbon Dioxide 23 mmol/L (22-30); Chloride 99 mmol/L (98-107); Glucose 97 mg/dL (74-99); Non-African American GFR(MDRD) 57 (>60 ml/min/1.73 sqM); Sodium 134 mmol/L (137-145)
[2016-09-28] MEDS: PANTOPRAZOLE 40 MG TABLET PO SCH (06:30)
[2016-09-28 06:32] LABS: Blood Urea Nitrogen 34 mg/dL (9-20); Potassium 5.3 mmol/L (3.5-5.1)
[2016-09-28] MEDS: CLOPIDOGREL 75 MG TAB PO SCH (09:51)
[2016-09-28] MEDS: ASPIRIN 81 MG CHEW PO SCH (09:51)
[2016-09-28] MEDS: ESCITALOPRAM 10 MG TAB PO SCH (09:52)
[2016-09-28] MEDS: MAG HYDROX/AL HYDROX/SIMETH 30 ML CUP PO SCH ×4 (09:52→20:33)
[2016-09-28] MEDS: METOPROLOL TARTRATE 50 MG TAB PO SCH ×2 (09:52→20:33)
[2016-09-28] MEDS: LISINOPRIL 10 MG TAB PO SCH (09:52)
[2016-09-28] MEDS: HYDROcodone/APAP 5-325MG 1 EACH TAB PO PRN ×3 (09:53→23:08)
[2016-09-28] MEDS: NICOTINE 14MG/24HR PATCH TRANSDERM SCH (09:53)
[2016-09-28] MEDS: ALPRAZolam 0.5 MG TAB PO PRN ×3 (09:53→23:08)
[2016-09-28 10:10] VITALS: RESP 18
[2016-09-28] MEDS: COLLAGENASE 250 UNIT/GM OINTMENT 30 GM TUBE TOPICAL SCH (13:00)
[2016-09-28] MEDS: FOLIC ACID 1 MG TAB PO SCH (13:05)
[2016-09-28] MEDS: THIAMINE 100 MG TAB PO SCH ×2 (13:06→16:43)
--- NOTE | 2016-09-28 14:01 | P.PN ---
Subjective Principal diagnosis: Chest pain This is a pleasant 60-year-old gentleman with a past medical history significant for CAD with prior bypass was performed in [facility] with unknown details at this point, hypertension, dyslipidemia, presented to the hospital complaining of chest discomfort. According to the patient, he had symptoms of chest discomfort off and on almost every other day. His troponins came back to be abnormal. KG showed normal sinus rhythm with no acute changes. Patient was recently in the hospital with chest discomfort, he was also intoxicated with alcohol at that time. On this occasion he was complaining of chest pressure but patient was also having some epigastric discomfort. Ultrasound of the abdomen was performed which revealed a stable left renal cyst. Pancreas not visualized, status post cholecystectomy. Because of the patient's abnormal enzymes and persistence of chest discomfort he was advised to undergo cardiac catheterization. Cardiac catheterization was performed yesterday which revealed mild nonobstructive coronary artery disease involving the left coronary system. Ligated right coronary artery at the proximal portion. Patent SVG to a small branch of the right coronary artery with sluggish flow in the vein graft and the mismatch between the vein graft and outflow artery. Dilated ascending thoracic aorta. Normal left ventricular systolic function. Maximal medical therapy was advised. The patient was seen and examined this morning, denies any chest pain, breathing was stable. Objective - Vital Signs Vital signs: Vital Signs Temp 97.2 F L 09/28/16 11:35 Pulse 55 L 09/28/16 11:35 Resp 18 09/28/16 11:35 BP 143/87 09/28/16 11:35 Pulse Ox 98 09/28/16 11:35 Intake & Output 09/27/16 09/28/16 09/28/16 18:59 06:59 18:59 Intake Total 1500 0 556 Output Total 800 Balance 700 0 556 Weight 67.9 kg Intake: IV 600 0 0 0.9 600 0 0 Oral 900 556 Output: Urine 800 Other: Voiding Method Urinal Urinal Urinal # Voids 4 - Exam PHYSICAL EXAMINATION: HEENT: Head is atraumatic, normocephalic. Pupils equal, round. Neck is supple. There is no elevated jugular venous pressure. HEART EXAMINATION: Heart S1, S2 normal. No murmur or gallop heard. CHEST EXAMINATION: Lungs are clear to auscultation and precussion. No chest wall tenderness is noted on palpation or with deep breathing. ABDOMEN: Soft, nontender. Bowel sounds are heard. No organomegaly noted. Right groin soft, no evidence of any hematoma. EXTREMITIES: 2+ peripheral pulses with no evidence of peripheral edema and no calf tenderness noted. NEUROLOGIC patient is awake, alert and oriented -3. . - Labs CBC & Chem 7: 09/28/16 05:38 09/28/16 05:38 Labs: Abnormal Lab Results - Last 24 Hours (Table) 09/28/16 09/28/16 Range/Units 05:38 05:38 RBC 4.13 L (4.30-5.90) m/uL Hgb 12.0 L (13.0-17.5) gm/dL Hct 38.8 L (39.0-53.0) % MCHC 30.8 L (31.0-37.0) g/dL Sodium 134 L (137-145) mmol/L Potassium 5.3 H (3.5-5.1) mmol/L BUN 34 H (9-20) mg/dL Creatinine 1.29 H (0.66-1.25) mg/dL Assessment and Plan (1) HTN (hypertension) Status: Acute (2) Chest pain Status: Acute (3) Alcoholism Status: Acute (4) COPD (chronic obstructive pulmonary disease) Status: Acute (5) Hx of CABG Status: Acute (6) Hyperlipemia Status: Acute (7) S/P cardiac cath Status: Acute Plan: From cardiology's perspective, patient may be able to be discharged once cleared by the primary. We will make him a follow-up appointment to see Dr. Nicole in the office post discharge. DNP note has been reviewed, I agree with a documented findings and plan of care. Patient was seen and examined.
--- NOTE | 2016-09-28 14:01 | PN ---
DATE OF SERVICE: 09/26/2016 INTERVAL HISTORY: Mr. Macias is a 60-year-old male with known history of coronary artery disease, admitted to the hospital with chest comfort and elevated troponins levels. The patient underwent cardiac catheterization today. No PCI required. Otherwise the patient is going to the inpatient psychiatric unit upon discharge. Denied any complaints of chest pain or shortness of breath. No leg swelling. REVIEW OF SYSTEMS: Negative except as above. Current medications reviewed. PHYSICAL EXAMINATION: A 60-year-old male lying in bed comfortably, alert, oriented x3. The patient appears in no apparent distress. VITALS: Blood pressure is 120/77, pulse 67, respirations 18, temperature afebrile, pulse 95% on room air. HEENT: Atraumatic, normocephalic. Neck is supple. No JVD. CVS: S1 and S2 heard. No murmurs, no gallop, no rub. LUNGS: Bilateral air entry is present. No wheezing. No crackles. ABDOMEN: Soft, nontender. Bowel sounds present x3. AQUATIC BIOLOGIST: Awake, alert, oriented x3. No focal deficits. Cranial nerves grossly intact. EXTREMITIES: No edema. Pulses palpable bilaterally. No clubbing or cyanosis. PSYCHIATRIC: Cooperative. LABORATORY DATA: Reviewed. IMPRESSION: 1. Elevated troponin with non-ST elevated myocardial infarction. 2. Chest pain, resolved. 3. Major depression. Psychiatry recommends inpatient transfer once medically stable. 4. Alcohol abuse with history of alcoholic gastritis. 5. Abdominal aortic aneurysm measuring 3.3 cm. Ascending aortic aneurysm measuring 4.2 cm. 6. Nicotine addiction. 7. Hyponatremia most likely hypovolemic hyponatremia. 8. Hyperkalemia, improved. 9. Elevated BUN. 10. History of myocardial infarction. 11. Right eye surgery with limited eyesight secondary to injury. 12. Chronic skeletal and back pain due to arthritis. DISCUSSION AND PLAN: A 60-year-old male admitted to the hospital with complaints of chest pain with elevated troponin levels. The patient underwent cardiac catheterization today. Further information based on clinical course. Continue current management.
--- NOTE | 2016-09-28 14:11 | PN ---
DATE OF SERVICE: 09/27/2016 INTERVAL HISTORY: Mr. Macias is a 60-year-old male with known history of coronary artery disease admitted to the hospital with a complaint of chest with elevated troponin level. Patient underwent cardiac catheterization, showed mild nonobstructive coronary artery disease involving the left coronary artery system, likely in the right coronary artery in the proximal portion, patent saphenous vein graft and dilated ascending thoracic aorta. Cardiology is following. Patient is chest pain free and a normal left ventricular systolic function. REVIEW OF SYSTEMS: CONSTITUTIONAL: No fever, no chills. RESPIRATORY: No cough or sputum production. CARDIOVASCULAR: No chest pain or short of breath. ABDOMEN: No nausea, vomiting, abdominal pain. GENITOURINARY: Negative. ENDOCRINE: Negative. PSYCHIATRY: Negative. SKIN: Negative. All other 14-point review of systems negative, except as above. CURRENT MEDICATIONS: Reviewed. PHYSICAL EXAMINATION: A 60-year-old male, lying in the bed, awake, alert and oriented x3, appears to be in no apparent distress. VITALS: Blood pressure 111/70, pulse is 59, respirations 16, temperature afebrile, pulse ox 98% on room air. HEENT: Atraumatic, normocephalic. Neck is supple. No JVD. CVS EXAM: S1, S2 heard. No murmurs, no gallop, no rub. LUNGS: Bilateral air entry is present. No wheezing. ABDOMEN: Soft, nontender. Bowel sounds present. PEDIATRIC ORTHODONTIST: Awake, alert, oriented x3. No focal deficit. EXTREMITIES: No edema. Pulses palpable bilaterally, no clubbing or cyanosis. PSYCHIATRIC: Cooperative. Laboratory data reviewed. IMPRESSION: 1. Chest pain, rule out acute coronary artery syndrome. 2. Elevated troponin, possibility of [id number] myocardial infarction, status post cardiac catheterization that showed mild nonobstructive coronary artery system involving the left coronary artery system. 3. Anxiety, depression. Psychiatry transferred upon discharge. 4. History of right coronary artery perforation, status post coronary artery bypass graft. 5. Alcohol abuse with history of alcoholic gastritis. 6. Abdominal aortic aneurysm measuring 3.3 cm. 7. Ascending aortic aneurysm measuring 4.2 cm. 8. Nicotine addiction. 9. Hyponatremia. 10. Hyperkalemia, improved. 11. Hyperlipidemia. 12. History of myocardial infarction. 13. Right eye surgery with limited eyesight secondary to injury. 14. Chronic cervical and back pain. 15. Deep venous thrombosis prophylaxis. 16. FULL CODE. DISCUSSION AND PLAN: A 60-year-old male admitted to the hospital with chest pain. Cardiac catheterization showed mild coronary artery disease, no PCI required. will continue maximal medical pain management. Patient is very depressed and requiring inpatient Psychiatric unit upon discharge and probably tomorrow. Will continue with the current management.
[2016-09-28] MEDS: ATORVASTATIN 40 MG TAB PO SCH (20:33)
[2016-09-29 05:53] VITALS: TEMP 97.3
[2016-09-29] MEDS: ALPRAZolam 0.5 MG TAB PO PRN (06:20)
[2016-09-29] MEDS: PANTOPRAZOLE 40 MG TABLET PO SCH (06:20)
[2016-09-29] MEDS: HYDROcodone/APAP 5-325MG 1 EACH TAB PO PRN (06:20)
[2016-09-29 08:18] VITALS: BP 112/67; PULSE 65
[2016-09-29 09:00] LABS: Basophils % (A) 0 %; CH 29.8; CHCM 32.2; Eosinophils # (A) 0.2 k/uL (0-0.7); Eosinophils % (A) 2 %; HCT 40.8 % (39.0-53.0); HDW 2.54; HGB 12.8 gm/dL (13.0-17.5); Luc # (Auto) 0.13; Luc % (Auto) 2; Lymphocytes # (A) 1.8 k/uL (1.0-4.8); Lymphocytes % (A) 21 %; MCH 29.1 pg (25.0-35.0); MCHC 31.4 g/dL (31.0-37.0); MCV 92.8 fL (80.0-100.0); Mean Platelet Volume 7.8; Monocytes # (A) 0.5 k/uL (0-1.0); Monocytes % (A) 6 %; Neutrophils # (A) 5.9 k/uL (1.3-7.7); Neutrophils % (A) 69 %; RDW 14.9 % (11.5-15.5); WBC 8.5 k/uL (3.8-10.6); WBC (Perox) 8.33
[2016-09-29 09:05] LABS: Calcium 9.8 mg/dL (8.4-10.2); Potassium 5.1 mmol/L (3.5-5.1); Total Bilirubin 0.4 mg/dL (0.2-1.3); Total Protein 7.3 g/dL (6.3-8.2)
[2016-09-29] MEDS: MAG HYDROX/AL HYDROX/SIMETH 30 ML CUP PO SCH (09:16)
[2016-09-29] MEDS: ASPIRIN 81 MG CHEW PO SCH (09:17)
[2016-09-29] MEDS: COLLAGENASE 250 UNIT/GM OINTMENT 30 GM TUBE TOPICAL SCH (09:18)
[2016-09-29] MEDS: LISINOPRIL 10 MG TAB PO SCH (09:18)
[2016-09-29] MEDS: CLOPIDOGREL 75 MG TAB PO SCH (09:18)
[2016-09-29] MEDS: ESCITALOPRAM 10 MG TAB PO SCH (09:18)
[2016-09-29] MEDS: NICOTINE 14MG/24HR PATCH TRANSDERM SCH (09:19)
[2016-09-29] MEDS: METOPROLOL TARTRATE 50 MG TAB PO SCH (09:19)
--- NOTE | 2016-09-29 10:10 | PN ---
DATE OF SERVICE: 09/28/2016 Mr. Macias is a 60-year-old male with known history of coronary artery disease, admitted to the hospital with complaints of chest pain with elevated troponin level. The patient underwent cardiac catheterization which showed mild nonobstructive coronary artery disease. Patient does have a history of coronary artery bypass graft followed by right coronary artery perforation previously. Otherwise the patient denied any complaints of chest pain or shortness of breath. No nausea, vomiting, or abdominal pain. No diarrhea. No dysuria. The patient is otherwise very depressed and has had psychiatric evaluation with monitored inpatient psychiatric admission. He is stable to be transferred to inpatient psychiatric unit at this time. Complete review of systems negative except as above. CURRENT MEDICATIONS: Reviewed. PHYSICAL EXAMINATION: A 60-year-old male lying in the bed comfortably, awake, alert, oriented x3. The patient is in no apparent distress. VITALS: Blood pressure is 106/70, pulse is 64, respiration 16, temperature afebrile, pulse ox 94% on room air. HEENT: Normocephalic, atraumatic. NECK: Supple, no JVD. CVS: S1 and S2 heard. No murmurs, no gallops, no rub. LUNGS: Bilateral air entry is present. ABDOMEN: Soft, nontender. Bowel sounds present. THERMODYNAMIC PHYSICIST: Awake, alert, oriented x3. No focal neurological deficits. Cranial nerves grossly intact. EXTREMITIES: No edema. Pulses palpable bilaterally. PSYCHIATRIC: Appropriate. LABORATORY DATA: LABORATORY DATA: WBC 6.4, hemoglobin 12.0, platelets 374. Sodium 134, potassium 5.3, chloride 89, bicarb is 23, BUN 34, creatinine 1.29, calcium 9.4. IMPRESSION: 1. Chest pain rule out acute coronary syndrome. 2. Elevated troponins, status post cardiac catheterization that showed mild nonobstructive coronary artery disease involving the left coronary system. 3. Anxiety and major depression. Inpatient psychiatric admission upon discharge. 4. History of right coronary artery perforation, status post coronary artery bypass graft. 5. Alcohol abuse history of alcoholic gastritis. 6. Abdominal aortic aneurysm measuring 3.3 cm. 7. Ascending aortic aneurysm measuring 4.2 cm. 8. Nicotine addiction. 9. Hyponatremia. 10. Hyperkalemia. 11. Hyperlipidemia. 12. History of myocardial infarction. 13. Right eye surgery with limited eyesight secondary to injury. 14. Chronic cervical back pain. 15. DVT prophylaxis. 16. FULL CODE. DISCUSSION: A 60-year-old male admitted to the hospital with complaints of chest pain and mildly elevated troponin level, status post cardiac catheterization. No PCI required. Recommend maximal medical management. The patient is being transferred due to major depression. Further recommendations based on clinical course. Patient is stable to be discharged to the inpatient psychiatric unit.
--- NOTE | 2016-09-30 12:01 | DS ---
DATE OF ADMISSION: 09/26/2016 DATE OF DISCHARGE: 09/29/2016 DISCHARGE DIAGNOSES: 1. Chest pain, ruled out acute coronary artery syndrome. 2. Elevated troponin, status post cardiac catheterization showed mild, nonobstructive coronary artery disease involving the left coronary artery system. 3. Elevated troponin, possible [id number] myocardial infarction. 4. Anxiety and major depression. Psychiatric wanted inpatient admission. 5. History of right coronary artery perforation, status post coronary artery bypass graft. 6. Alcohol abuse history with alcoholic gastritis. 7. Abdominal aortic aneurysm measuring 3.3 cm and ascending aortic aneurysm measuring 4.2 cm. 8. Nicotine addiction. 9. Hyponatremia. 10. Hyperkalemia. 11. Hyperlipidemia. 12. History of myocardial infarction. 13. Right eye surgery with limited eyesight secondary to injury. 14. Chronic cervical back pain. 15. Deep venous thrombosis prophylaxis. 16. Acute kidney injury, most likely prerenal with elevated BUN and creatinine. 17. FULL CODE. HOSPITAL COURSE: A 60-year-old male with known history of alcohol abuse and gastritis and history of coronary artery bypass graft, admitted to the hospital with complaints of chest pain, was found to have slightly elevated troponin level and patient's cardiac catheterization showed mild coronary artery disease in the left coronary artery system. Otherwise, patient is very depressed and has Psychiatry has been consulted for further evaluation. Will recommend psychiatric inpatient admission upon medical clearance. Patient is currently denying any chest pain now. Patient is being managed with medical management totally. Otherwise, patient is stable to be transferred to inpatient psychiatry unit and continue with the current medications and follow with the primary care physician upon discharge. DISCHARGE PHYSICAL EXAM: A 60-year-old male lying in bed, comfortably. Awake, alert, oriented x3, appears to be in no apparent distress. VITALS: Blood pressure is 112/67, pulse is 65, respirations 18, temperature afebrile, pulse ox 96% on room air. Laboratory data reviewed. Discharge physical examination done. Discharge medications include: 1. Santyl one application topical daily. 2. Lexapro 10 mg p.o. daily. 3. Zestril 10 mg p.o. daily. 4. Thiamine 100 mg p.o. daily. 5. Aspirin 81 mg p.o. daily. 6. Atorvastatin 40 mg p.o. at bedtime. 7. Plavix 75 mg p.o. daily. 8. Metoprolol 50 mg p.o. b.i.d. 9. Tramadol 50 mg q.4 hourly p.r.n. for pain. The patient will be transferred to inpatient psychiatric unit. Follow up with Dr. Washburn as an outpatient after discharge in 3 days.
== END 2016-09-29 10:40 | DRG 281 ==
LOC: EC 21:34 → 3OBS 09-24 06:42 → 6SEL 09-24 18:26 → OBSVTOIN 09-26 16:34
PROVIDERS: ADMIT Hospitalist; ATTEND Hospitalist
PROC: B2151ZZ Fluoroscopy of Left Heart using Low Osmolar Contrast (ICD-10-PCS; principal; 2016-09-26 11:00)
PROC: B2111ZZ Fluoroscopy of Multiple Coronary Arteries using Low Osmolar Contrast (ICD-10-PCS; principal; 2016-09-26 11:00)
PROC: 4A023N7 Measurement of Cardiac Sampling and Pressure, Left Heart, Percutaneous Approach (ICD-10-PCS; principal; 2016-09-26 11:00)
PROC: B2121ZZ Fluoroscopy of Single Coronary Artery Bypass Graft using Low Osmolar Contrast (ICD-10-PCS; principal; 2016-09-26 11:00)
DX: I21.4 Non-ST elevation (NSTEMI) myocardial infarction (principal); E87.1 Hypo-osmolality and hyponatremia; N17.9 Acute kidney failure, unspecified; F32.2 Major depressive disorder, single episode, severe without psychotic features; N18.3 Chronic kidney disease, stage 3 (moderate); R45.851 Suicidal ideations; I25.82 Chronic total occlusion of coronary artery; E86.1 Hypovolemia; E87.5 Hyperkalemia; E78.5 Hyperlipidemia, unspecified; I25.10 Atherosclerotic heart disease of native coronary artery without angina pectoris; F10.20 Alcohol dependence, uncomplicated; F12.90 Cannabis use, unspecified, uncomplicated; F17.210 Nicotine dependence, cigarettes, uncomplicated; F41.9 Anxiety disorder, unspecified; G47.419 Narcolepsy without cataplexy; I12.9 Hypertensive chronic kidney disease with stage 1 through stage 4 chronic kidney disease, or unspecified chronic kidney disease; I25.2 Old myocardial infarction; I71.2 Thoracic aortic aneurysm, without rupture; I71.4 Abdominal aortic aneurysm, without rupture; J44.9 Chronic obstructive pulmonary disease, unspecified; M19.90 Unspecified osteoarthritis, unspecified site; N28.1 Cyst of kidney, acquired; Z59.0 Homelessness; Z81.1 Family history of alcohol abuse and dependence; Z82.49 Family history of ischemic heart disease and other diseases of the circulatory system; Z95.1 Presence of aortocoronary bypass graft; Z79.02 Long term (current) use of antithrombotics/antiplatelets; Z79.899 Other long term (current) drug therapy
CPT/HCPCS: 36415; 71010; 71275; 74176; 76700; 80048; 80053; 80061; 81003; 82075; 82150; 82550; 82553; 83690; 83735; 83880; 84484; 85025; 85379; 85610; 85730; 93005; 93459; 96361; 96374; 99285

== ENCOUNTER 2016-09-29 09:54 | Inpatient (IN) | payer MEDICARE ==
[2016-09-29 11:01] VITALS: BMI 22.1
[2016-09-29] MEDS ORDERED: NITROGLYCERIN SL TABS 0.4 MG TAB SUBLINGUAL PRN (11:26)
[2016-09-29] MEDS ORDERED: MAG HYDROX/AL HYDROX/SIMETH 30 ML CUP PO PRN (11:26)
[2016-09-29] MEDS: NICOTINE 14MG/24HR PATCH TRANSDERM SCH (13:35)
[2016-09-29] MEDS: FOLIC ACID 1 MG TAB PO SCH (13:35)
[2016-09-29] MEDS: HYDROcodone/APAP 5-325MG 1 EACH TAB PO PRN ×2 (13:50→22:34)
[2016-09-29] MEDS: LORazepam 1 MG TAB PO PRN (13:51)
--- NOTE | 2016-09-29 20:12 | HP ---
DATE OF ADMISSION: 09/29/2016 Patient is known to me from previous encounter as I saw him in consultation on September 25, 2016. HISTORY OF PRESENT ILLNESS: Patient is a 60-year-old white male who presents to the Emergency Department with chest pain. Patient endorses severe depression and anxiety since he had his cardiac bypass in June 2016. Patient endorses decreased appetite with weight loss between 5 to 10 pounds over the last couple of weeks, trouble falling asleep and staying asleep. No energy, no motivation. Poor concentration and feeling overwhelmed with his medical problem. Patient said, "Being here in this place, not on the medical floor, is making me more depressed". Patient denied any hypomanic or manic features. He denied any psychotic features. Patient has extensive history of alcohol abuse as he was drinking up to a fifth a day. PAST PSYCHIATRIC HISTORY: There is no previous inpatient or outpatient treatment for mental illness. There is no previous suicidal attempt. Patient has been on escitalopram 10 mg after his cardiac bypass. PAST MEDICAL HISTORY: 1. Status post cardiac catheterization done on September 26, 2016 and the conclusion was mild nonobstructive coronary artery disease in the left coronary system. 2. Status post cardiac bypass in June 2016. 3. Chronic back pain. ALLERGIES: No known drug allergies. HOME MEDICATIONS: 1. Ultram 50 mg every 4 hours. 2. Lopressor 50 mg twice a day. 3. Lipitor 40 mg at bedtime. 4. Plavix 75 mg a day. 5. Prilosec 40 mg in the morning. 6. Escitalopram 10 mg daily. FAMILY HISTORY: Substance abuse. Father was alcoholic. Also two sisters have drinking problem. SUBSTANCE ABUSE HISTORY: 1. Nicotine or tobacco: He has been smoking between half to one pack a day since early teens. 2. Alcohol: He started drinking at age 13 once a day and he is able tolerate up to a fifth of hard liquid a day. He was in inpatient substance abuse rehab in 2014 but he had never maintained his sobriety. 3. Cannabis: He has been smoking marijuana at least once a week. SOCIAL HISTORY: Please review my psychiatric consultation. MENTAL STATUS EXAMINATION: Patient is a white male, who looks much older than stated age, disheveled and kept. Poor grooming. Very guarded. Poor eye contact. He was not cooperative. Very superficial. Kept saying, "Being in this room is making me more suicidal". Affect is blunted. Very severe psychomotor retardation. He denied any auditory or visual hallucinations. His insight and judgement are very limited. Intellectual function is average. For the Mini-Mental status or for his cognitive function he did score 24/30. STRENGTH: Patient has income, Social Security Income. WEAKNESS: Alcohol abuse problem, housing problem, lack of support system. DIAGNOSES 1. Major depression disorder, single episode, moderate to severe without psychotic features. 2. Alcohol use disorder. 3. Cannabis use disorder. 4. Tobacco use disorder. PLAN: Patient was transferred to the inpatient Mental Health Unit on voluntary basis. I will restart him on his medications for his medical condition. I will increase his Lexapro to 20 mg daily. Patient will participate in group therapy and milieu therapy as tolerated. LENGTH OF STAY: 4 to 5 days with the plan to discharge him to dual diagnosis program. PROGNOSIS: Fair with maintained sobriety from alcohol. MTDD
[2016-09-29] MEDS: METOPROLOL TARTRATE 50 MG TAB PO SCH (22:32)
[2016-09-29] MEDS: ATORVASTATIN 40 MG TAB PO SCH (22:33)
[2016-09-30] MEDS ORDERED: ESCITALOPRAM 10 MG TAB PO SCH (09:00)
[2016-09-30] MEDS: CLOPIDOGREL 75 MG TAB PO SCH (09:15)
[2016-09-30] MEDS: ASPIRIN 81 MG CHEW PO SCH (09:15)
[2016-09-30] MEDS: LISINOPRIL 10 MG TAB PO SCH (09:15)
[2016-09-30] MEDS: METOPROLOL TARTRATE 50 MG TAB PO SCH ×2 (09:15→21:41)
[2016-09-30] MEDS: PANTOPRAZOLE 40 MG TABLET PO SCH (09:17)
[2016-09-30] MEDS: ESCITALOPRAM 20 MG TAB PO SCH (09:17)
[2016-09-30] MEDS: THIAMINE 100 MG TAB PO SCH (09:18)
[2016-09-30] MEDS: NICOTINE 14MG/24HR PATCH TRANSDERM SCH (09:18)
[2016-09-30] MEDS: HYDROcodone/APAP 5-325MG 1 EACH TAB PO PRN ×2 (09:21→15:57)
[2016-09-30] MEDS: LORazepam 1 MG TAB PO PRN ×2 (09:21→15:57)
[2016-09-30] MEDS: COLLAGENASE 250 UNIT/GM OINTMENT 30 GM TUBE TOPICAL SCH (11:06)
[2016-09-30] MEDS: FOLIC ACID 1 MG TAB PO SCH (13:29)
--- NOTE | 2016-09-30 14:13 | P.PN ---
Subjective Principal diagnosis: SUBJECTIVE: Patient endorses :helpless feeling ,poor sleep ,poor appetite ,no energy , "Physically and mentally tired ",ruminating about his health ,he reports poor concentration and difficulty making decision,he is not participating in group due to his depression ,isolating himself ,no peers interaction ,endorses passive suicidal ideation and wish,feeling abandoned by his son "After my heart surgery he brought me to [place] to stay with him but now he does not want me in his life" MENTAL STATUS EXAM: Patient is thin male male appearing older that stated age ,on wheel chair but able to stand up ,unsteady gait,unkept ,disheveled,body odor,avoiding eyes contact,psychomotor retardation,,non spontaneous ,coherent ,seems preoccupied , denies any delusion or hallucination,somatic preoccupied,he reports passive suicidal ideation ,flat affect,insight to his alcohol use is impaired ASSESSMENT :Patient endorses depression and anxiety complicated by his medical issue and his alcohol use ,limited support system PLAN: 1) Continue Lexapro ,add Remeron to restore his sleep and appetite 2) Encourage participation in group and his ADLs 3) Consult PT Objective - Vital Signs Vital signs: Vital Signs Temp 97.9 F 09/30/16 06:37 Pulse 75 09/30/16 06:37 Resp 18 09/30/16 06:37 BP 107/70 09/30/16 06:37 Pulse Ox Intake & Output 09/29/16 09/30/16 09/30/16 18:59 06:59 18:59 Weight 67.81 kg
--- NOTE | 2016-09-30 19:46 | P.CONS ---
History of Present Illness - Reason for Consult Consult date: 09/30/16 - Chief Complaint Medical H&P. Feeling of hopelessness - History of Present Illness 60-year-old gentleman with history of poly-substance use comes into the hospital states that he feels hopeless has had poor appetite unintentional in nature and has had no motivation or energy to do any of his usual activities. Patient states that his own son has kicked him out of the house as his girlfriend does not like him anymore. Patient states that his main concern has been his issues with pain especially of his spine. Patient states that he used to take Dilaudid and [place] in the past as prescribed by physician. However on review of medical chart his medical reconsideration does not reflect use of Dilaudid by mouth. Patient currently states to not have any chest pain, difficulty breathing, abdominal pain, urinary urgency or frequency, change in bowel habits. Patient has had a open heart surgery with the last year.7 denies having any suicidal or homicidal ideations. Review of Systems All systems: negative (Noted in HPI) Past Medical History Past Medical History: Coronary Artery Disease (CAD), Eye Disorder, Hyperlipidemia, Hypertension, Myocardial Infarction (SC), Musculoskeletal Disorder, Renal Disease Additional Past Medical History / Comment(s): Alcoholism, CKD stage III, gastritis, chronic cervical and back pain, R eye injury with surgery-limited sight. Last Myocardial Infarction Date:: june, History of Any Multi-Drug Resistant Organisms: None Reported Past Surgical History: Appendectomy, Back Surgery, Coronary Bypass/CABG, Orthopedic Surgery Additional Past Surgical History / Comment(s): L shoulder surgery, colonoscopy, R eye lens surgery due to injury, 06/2016 cath with perforation of the RCA during PCI resulting vessel bypass and pericardiocentesis-pt states he believes he had triple bypass. 09/26/16 left heart cath and ventriculoggraphy. Angiogram ( right and left coronary and SVG to RCA) Past Anesthesia/Blood Transfusion Reactions: No Reported Reaction Past Psychological History: Depression Additional Psychological History / Comment(s): Pt currently is living in a motel. [place] He [place] not drive. He gets to [employer] by cab or his son takes him. Smoking Status: Current every day smoker Past Alcohol Use History: Daily Additional Past Alcohol Use History / Comment(s): Pt states he likes to drink a pint to a 1/5 of vodka a day, last drink 09/23/16. He started smoking in 1969 and is a 1/2 ppd smoker. Past Drug Use History: Marijuana Additional Drug Use History / Comment(s): Pt states he smokes 2 joints per day for pain control. He states he has medical marijuan card. - Past Family History Father Family Medical History: Myocardial Infarction (SC) Additional Family Medical History / Comment(s): Father of a SC at the age of 71 yrs. Mother Family Medical History: Cancer Additional Family Medical History / Comment(s): Mother had breast cancer-bone cancer and at the age of 65 yrs. Medications and Allergies Allergies Allergy/AdvReac Type Severity Reaction Status Date / Time No Known Allergies Allergy Verified 09/29/16 10:44 Physical Exam Vitals: Vital Signs Temp Pulse Resp BP 09/30/16 15:58 72 18 113/80 09/30/16 14:00 67 18 103/70 09/30/16 06:37 97.9 F 75 18 107/70 09/29/16 22:27 77 18 90/63 Physical exam Gen. appearance oriented 3 in no distress Neck is supple no JVD Lungs diminished air movement no wheezing or rhonchi appreciated however patient has significant kyphoscoliosis Heart S1-S2 heard regular rate and rhythm no murmurs appreciated Abdomen is soft nontender no organomegaly bowel sounds are intact Neurologically cranial nerves II-12 grossly intact no focal motor or sensory deficits noted , moves all 4 extremity and patient's gait appears to be within normal limits Assessment and Plan Plan: #1 major depression disorder #2 CAD #3 ongoing tobacco use #4 polysubstance use #5 history of dysuria #6 severe kyphoscoliosis #7 history of opiate addiction #8 underlying COPD Plan Patient's neurological exam appears to be within normal limits patient does have severe kyphoscoliosis however his respiratory status appears to be reasonable at this time. Patient is ambulating there is some physical exam findings consistent with underlying COPD. Thank you for the consultation please call us if there is any need for evaluation by her team. Patient is stable from our perspective.
[2016-09-30] MEDS ORDERED: MIRTAZAPINE 15 MG TAB PO SCH (21:00)
[2016-09-30] MEDS: ATORVASTATIN 40 MG TAB PO SCH (21:42)
[2016-10-01] MEDS: HYDROcodone/APAP 5-325MG 1 EACH TAB PO PRN ×3 (06:41→18:47)
[2016-10-01] MEDS: LORazepam 1 MG TAB PO PRN ×3 (06:41→18:47)
[2016-10-01] MEDS: PANTOPRAZOLE 40 MG TABLET PO SCH (10:19)
[2016-10-01] MEDS: NICOTINE 14MG/24HR PATCH TRANSDERM SCH (10:19)
[2016-10-01] MEDS: ASPIRIN 81 MG CHEW PO SCH (10:20)
[2016-10-01] MEDS: METOPROLOL TARTRATE 50 MG TAB PO SCH ×2 (10:20→21:00)
[2016-10-01] MEDS: THIAMINE 100 MG TAB PO SCH (10:20)
[2016-10-01] MEDS: CLOPIDOGREL 75 MG TAB PO SCH (10:20)
[2016-10-01] MEDS: LISINOPRIL 10 MG TAB PO SCH (10:20)
[2016-10-01] MEDS: ESCITALOPRAM 20 MG TAB PO SCH (10:20)
[2016-10-01] MEDS: COLLAGENASE 250 UNIT/GM OINTMENT 30 GM TUBE TOPICAL SCH (10:21)
[2016-10-01] MEDS: FOLIC ACID 1 MG TAB PO SCH (12:54)
--- NOTE | 2016-10-01 16:54 | P.PN ---
Subjective Principal diagnosis: SUBJECTIVE: "I am having anxiety and back pain ,I used to take Morphine and Valium but since I came To [place] they do not want to give these meds",patient endorses :tiredness ,fatigue ,laying in bed ,just up for meal or for PRN Ativan ,somatic preoccupied ,lot of anger towards his son ,he stated that he has to go back to [place] to live on his own ,no insight to his SA issue PER NURSING STAFF: Was seen by PT who recommended cane instead of walker,still requesting PRN Ativan MENTAL STATUS EXAM: Patient is thin male male appearing older that stated age ,on wheel chair but able to stand up ,unsteady gait,unkept ,disheveled,body odor,avoiding eyes contact,psychomotor retardation,,non spontaneous ,coherent ,seems preoccupied , denies any delusion or hallucination,somatic preoccupied,he reports passive suicidal ideation ,flat affect,insight to his alcohol use is impaired ASSESSMENT :Patient endorses depression and anxiety complicated by his medical issue and his alcohol use ,limited support system PLAN:1) Continue Lexapro ,increase Remeron 30 mg ,limit settings on his drug seeking,encourage participation in groups and ADLs Objective - Vital Signs Vital signs: Vital Signs Temp 97.9 F 10/01/16 10:15 Pulse 72 10/01/16 14:24 Resp 18 10/01/16 14:24 BP 111/83 10/01/16 14:24 Pulse Ox 98 10/01/16 10:15
[2016-10-01] MEDS: ATORVASTATIN 40 MG TAB PO SCH (21:00)
[2016-10-01] MEDS: MIRTAZAPINE 15 MG TAB PO SCH (21:00)
[2016-10-02] MEDS: PANTOPRAZOLE 40 MG TABLET PO SCH (07:56)
[2016-10-02] MEDS: HYDROcodone/APAP 5-325MG 1 EACH TAB PO PRN (07:57)
[2016-10-02] MEDS: LORazepam 1 MG TAB PO PRN (07:59)
[2016-10-02] MEDS: NICOTINE 14MG/24HR PATCH TRANSDERM SCH (07:59)
[2016-10-02] MEDS: CLOPIDOGREL 75 MG TAB PO SCH (08:00)
[2016-10-02] MEDS: THIAMINE 100 MG TAB PO SCH (08:00)
[2016-10-02] MEDS: ASPIRIN 81 MG CHEW PO SCH (08:00)
[2016-10-02] MEDS: ESCITALOPRAM 20 MG TAB PO SCH (08:00)
[2016-10-02] MEDS: METOPROLOL TARTRATE 50 MG TAB PO SCH ×2 (08:00→21:33)
[2016-10-02] MEDS: LISINOPRIL 10 MG TAB PO SCH (08:00)
[2016-10-02] MEDS: COLLAGENASE 250 UNIT/GM OINTMENT 30 GM TUBE TOPICAL SCH (08:02)
--- NOTE | 2016-10-02 10:34 | P.PN ---
Subjective Principal diagnosis: SUBJECTIVE: Patient was laying in bed ,stated ;"I thought you will change my [place] to Morphine ,I WAS ON DILAUDID FOR 12YEARS ",patient is somatic preoccupied,no motivation ,endorses tiredness and fatigue ,reports that his sleep and appetite improving PER NURSING STAFF: Patient is up for meal or requesting PRN otherwise he is in bed ,still requesting PRN Ativan three times daily and [place] MENTAL STATUS EXAM: Patient is thin male male appearing older that stated age ,on wheel chair but able to stand up ,unsteady gait,unkept ,disheveled,body odor,avoiding eyes contact,psychomotor retardation,,non spontaneous ,coherent ,seems preoccupied , denies any delusion or hallucination,somatic preoccupied,he denies suicidal ideation ,flat affect,insight to his SA is impaired ASSESSMENT :Patient endorses depression and anxiety complicated by his medical issue and his SA,limited support system, PLAN:1) Continue Lexapro and Remeron ,limit settings on his drug seeking, encourage participation in groups and ADLs 2) Decrease PRN Ativan ,adding Neurontin for pain and anxiety Objective - Vital Signs Vital signs: Vital Signs Temp 98.2 F 10/02/16 07:07 Pulse 64 10/02/16 07:07 Resp 15 10/02/16 07:07 BP 101/74 10/02/16 07:07 Pulse Ox 98 10/01/16 10:15
[2016-10-02] MEDS: FOLIC ACID 1 MG TAB PO SCH (12:50)
[2016-10-02] MEDS: LORazepam 0.5 MG TAB PO PRN (15:10)
[2016-10-02] MEDS: HYDROcodone/APAP 7.5-325MG 1 EACH TAB PO PRN (15:10)
[2016-10-02] MEDS: GABAPENTIN 100 MG CAP PO SCH (21:33)
[2016-10-02] MEDS: ATORVASTATIN 40 MG TAB PO SCH (21:33)
[2016-10-02] MEDS: MIRTAZAPINE 15 MG TAB PO SCH (21:34)
[2016-10-03] MEDS: GABAPENTIN 100 MG CAP PO SCH ×2 (08:48→22:14)
[2016-10-03] MEDS: PANTOPRAZOLE 40 MG TABLET PO SCH (08:48)
[2016-10-03] MEDS: COLLAGENASE 250 UNIT/GM OINTMENT 30 GM TUBE TOPICAL SCH (08:48)
[2016-10-03] MEDS: ESCITALOPRAM 20 MG TAB PO SCH (08:48)
[2016-10-03] MEDS: ASPIRIN 81 MG CHEW PO SCH (08:48)
[2016-10-03] MEDS: NICOTINE 14MG/24HR PATCH TRANSDERM SCH (08:48)
[2016-10-03] MEDS: CLOPIDOGREL 75 MG TAB PO SCH (08:48)
[2016-10-03] MEDS: LISINOPRIL 10 MG TAB PO SCH (08:49)
[2016-10-03] MEDS: THIAMINE 100 MG TAB PO SCH (08:49)
[2016-10-03] MEDS: METOPROLOL TARTRATE 50 MG TAB PO SCH ×2 (08:49→22:17)
[2016-10-03] MEDS: LORazepam 0.5 MG TAB PO PRN ×2 (08:51→18:42)
[2016-10-03] MEDS: HYDROcodone/APAP 7.5-325MG 1 EACH TAB PO PRN ×2 (08:51→18:42)
--- NOTE | 2016-10-03 10:59 | P.PN ---
Progress Note - Text Interval history: Patient seen in cross coverage today for Dr. Salinas. He reports that he did sleep some last night. He does seem to be eating. He is taking his psychotropic medications relays that he does have some sleepiness with the medication. Overall he appears to be tolerating them well. He does describe his mood as depressed. He makes reference to his son and his son's girlfriend coming in for family meeting this weekend. He does talk about having a home to go to but he would need to turn his utilities on first. Mental status exam: He is alert, found in his room lying in bed. He is cooperative with the interview. His affect is restricted. His mood is depressed. He denies any thoughts of harm to self or others. There is no evidence of active psychosis or any agitation. His thought processes organized. Plan: We'll maintain Lexapro and Remeron is current. We will monitor for any medication side effects and monitor his ongoing response. Family meeting is pending. We'll continue to cover this patient for Dr. Salinas through the weekend.
[2016-10-03] MEDS: FOLIC ACID 1 MG TAB PO SCH (12:48)
[2016-10-03] MEDS: ATORVASTATIN 40 MG TAB PO SCH (22:14)
[2016-10-03] MEDS: MIRTAZAPINE 15 MG TAB PO SCH (22:15)
[2016-10-04] MEDS: PANTOPRAZOLE 40 MG TABLET PO SCH (09:02)
[2016-10-04] MEDS: CLOPIDOGREL 75 MG TAB PO SCH (09:02)
[2016-10-04] MEDS: NICOTINE 14MG/24HR PATCH TRANSDERM SCH (09:02)
[2016-10-04] MEDS: ASPIRIN 81 MG CHEW PO SCH (09:02)
[2016-10-04] MEDS: ESCITALOPRAM 20 MG TAB PO SCH (09:02)
[2016-10-04] MEDS: GABAPENTIN 100 MG CAP PO SCH ×2 (09:02→20:05)
[2016-10-04] MEDS: THIAMINE 100 MG TAB PO SCH (09:03)
[2016-10-04] MEDS: LISINOPRIL 10 MG TAB PO SCH (09:03)
[2016-10-04] MEDS: METOPROLOL TARTRATE 50 MG TAB PO SCH ×2 (09:03→20:04)
[2016-10-04] MEDS: HYDROcodone/APAP 7.5-325MG 1 EACH TAB PO PRN ×2 (09:06→16:49)
[2016-10-04] MEDS: LORazepam 0.5 MG TAB PO PRN ×2 (09:07→16:50)
[2016-10-04] MEDS: COLLAGENASE 250 UNIT/GM OINTMENT 30 GM TUBE TOPICAL SCH (09:30)
[2016-10-04] MEDS: FOLIC ACID 1 MG TAB PO SCH (14:23)
--- NOTE | 2016-10-04 15:34 | P.PN ---
Progress Note - Text Interval history: Patient is seen in cross coverage today for Dr. Salinas. Reports that he is feeling better overall. He reports in the family meeting today with son which seemed to go well. He reports the plan to stay with his son until he can get his utilities turned on. Sleep and appetite seem to be doing well. He does not seem to voice any adverse psychotropic medication side effects. Mental status exam: He is alert and cooperative with the interview. Speech is fluent, not rapid or pressured. Thought processes organized. His mood is overall improved. He denies any thoughts of harm to self or others. He does not verbalize any hallucinations or divya delusional thoughts. No evidence of any agitation. Plan: Patient will be maintained on current psychotropic medication regimen. Monitor for any psychotropic medication side effects. Dr. Salinas to resume care this patient starting tomorrow. Would look for discharge planning soon.
[2016-10-04] MEDS: ATORVASTATIN 40 MG TAB PO SCH (20:04)
[2016-10-04] MEDS: MIRTAZAPINE 15 MG TAB PO SCH (20:04)
[2016-10-05 06:14] VITALS: TEMP 97.5
[2016-10-05] MEDS: ASPIRIN 81 MG CHEW PO SCH (09:29)
[2016-10-05] MEDS: COLLAGENASE 250 UNIT/GM OINTMENT 30 GM TUBE TOPICAL SCH (09:29)
[2016-10-05] MEDS: ESCITALOPRAM 20 MG TAB PO SCH (09:29)
[2016-10-05] MEDS: GABAPENTIN 100 MG CAP PO SCH ×2 (09:29→20:13)
[2016-10-05] MEDS: PANTOPRAZOLE 40 MG TABLET PO SCH (09:29)
[2016-10-05] MEDS: LISINOPRIL 10 MG TAB PO SCH (09:29)
[2016-10-05] MEDS: NICOTINE 14MG/24HR PATCH TRANSDERM SCH (09:29)
[2016-10-05] MEDS: CLOPIDOGREL 75 MG TAB PO SCH (09:29)
[2016-10-05] MEDS: METOPROLOL TARTRATE 50 MG TAB PO SCH ×2 (09:30→20:13)
[2016-10-05] MEDS: THIAMINE 100 MG TAB PO SCH (09:30)
[2016-10-05] MEDS: HYDROcodone/APAP 7.5-325MG 1 EACH TAB PO PRN ×2 (09:30→16:35)
[2016-10-05] MEDS: LORazepam 0.5 MG TAB PO PRN ×2 (09:30→16:35)
[2016-10-05] MEDS: FOLIC ACID 1 MG TAB PO SCH (12:06)
[2016-10-05 14:22] LABS: Glucose,Whole Blood 74 mg/dL (75-99)
--- NOTE | 2016-10-05 15:54 | P.PN ---
Progress Note - Text After lunch patient presented with dizzy feeling and cold numb upper and lower extremities,please refer to RN note ,reconsult Hospitalist who ordered work-up , will postponed discharge till medical clearance
[2016-10-05 17:12] LABS: Basophils # (A) 0.1 k/uL (0-0.2); Basophils % (A) 1 %; CH 29.5; CHCM 31.7; Eosinophils # (A) 0.3 k/uL (0-0.7); Eosinophils % (A) 4 %; HCT 41.2 % (39.0-53.0); HDW 2.71; HGB 12.8 gm/dL (13.0-17.5); Hypochromasia Slight; Luc # (Auto) 0.37; Luc % (Auto) 4; Lymphocytes # (A) 2.6 k/uL (1.0-4.8); Lymphocytes % (A) 29 %; MCH 29.1 pg (25.0-35.0); MCHC 31.2 g/dL (31.0-37.0); MCV 93.4 fL (80.0-100.0); Mean Platelet Volume 7.6; Monocytes # (A) 0.6 k/uL (0-1.0); Monocytes % (A) 6 %; Neutrophils # (A) 5.2 k/uL (1.3-7.7); Neutrophils % (A) 57 %; RBC 4.41 m/uL (4.30-5.90); RDW 14.5 % (11.5-15.5); WBC 9.2 k/uL (3.8-10.6); WBC (Perox) 9.78
[2016-10-05 17:21] LABS: Calcium 9.7 mg/dL (8.4-10.2); Potassium 5.6 mmol/L (3.5-5.1); Total Bilirubin 0.4 mg/dL (0.2-1.3); Total Protein 7.6 g/dL (6.3-8.2)
[2016-10-05] MEDS ORDERED: RX INFO: IV CONTRAST WAS GIVEN 1 EACH MISC MISCELLANE PRN (17:52)
[2016-10-05] MEDS ORDERED: SODIUM POLYSTYRENE SULFONATE 15 GM/60 ML BOTTLE PO STA (17:57)
--- NOTE | 2016-10-05 18:49 | PN ---
DATE OF SERVICE: 10/05/2016 This 60-year-old gentleman, admitted with major depressive disorder to the psych floor, had bluish discoloration as well as numbness and tingling of both hands and left arm for a brief period today. The patient apparently was found to be hypoxic, also. No chest pain. No palpitation. No fever. No headache, loss of consciousness or seizures. On exam, alert and oriented x3. Pulse is 56, blood pressure 98/58, respiration 18, temperature 97.4, pulse ox 100% on room air. HEENT: Conjunctivae normal. NECK: No jugular venous distention. CARDIOVASCULAR SYSTEM: S1, S2 muffled. RESPIRATORY SYSTEM: Breath sounds diminished at the bases. No rhonchi. No crackles. ABDOMEN: Soft, nontender. LEGS: No edema. No swelling. NERVOUS SYSTEM: No focal deficit. LABS: Previous creatinine was 1.58. ASSESSMENT: 1. Bluish discoloration of the fingers. Rule out Raynaud phenomenon. 2. Numbness and tingling. Rule out transient ischemic attack. 3. Major depression disorder. 4. History of coronary artery disease. 5. Ongoing nicotine dependence. 6. History of polysubstance abuse. 8. Severe kyphoscoliosis. 9. Chronic kidney disease, stage III. 10. History of opiate addiction. 11. History of chronic obstructive pulmonary disease. 12. Hyponatremia. 13. Mild anemia, normocytic; anemia of chronic disease possibly previously. 14. FULL CODE. RECOMMENDATIONS AND DISCUSSION: In this 60-year-old gentleman who presented with multiple complex medical issues, I recommend continued current medications. Continue symptomatic treatment. I recommend STAT labs: CBC, CMP, D-dimer. If the D-dimer is positive, I recommend CT angiogram of the chest. Otherwise, I recommend Ecotrin 325 mg and a set of troponins as well as an EKG. Guarded prognosis. Further recommendations to follow. Will continue to monitor. I recommend at least observation for 24 hours before discharge. Thank you, Dr. Salinas. ALEX
[2016-10-05] MEDS ORDERED: LEVOFLOXACIN 500 MG TAB PO SCH (19:00)
[2016-10-05] MEDS: MIRTAZAPINE 15 MG TAB PO SCH (20:13)
[2016-10-05] MEDS: ATORVASTATIN 40 MG TAB PO SCH (20:13)
[2016-10-06 06:15] VITALS: RESP 18
[2016-10-06] MEDS ORDERED: ASPIRIN 325 MG TAB PO SCH (09:00)
--- NOTE | 2016-10-06 09:31 | DS ---
DATE OF ADMISSION: 09/29/2016 DATE OF DISCHARGE: 10/05/2016 Patient was transferred from the medical unit after he had cardiac catheterization for depression and suicidal ideation. Consult physician routine. Bike Assembler provider was Dr. Whitman ). Bike Assembler reason for medical management of his chronic arthritic disease, hypertension. DISCHARGE DIAGNOSES: 1. Depressive disorder, not otherwise specified. 2. Alcohol use disorder. 3. Chronic back problem. BRIEF SUMMARY OF ADMISSION NOTE: Please refer to my initial psychiatric dictation on September 29. Patient was transferred from the medical unit where he was hospitalized on September 25 for chest pain an alcohol withdrawal, for severe depression and anxiety. HOSPITAL COURSE: Patient was admitted to the mental health unit on a voluntary basis. Once he was in admitted to the mental unit, I did review with him his psychiatric medication as he was already started on escitalopram 10 mg by his primary care physician after his coronary bypass. He did agree to increase his escitalopram to 20 mg daily; however, as he was having trouble sleeping at night and poor appetite, I did add mirtazapine at bedtime and I increased it to 30 mg at bedtime. It did help him to sleep and also it did improve his appetite. Initially, patient had very minimal participation in milieu, activity, and session, he just up eating his meal or asking for p.r.n. pain medication. I did discuss with him his extensive history of substance abuse that including opiate pain medication and alcohol use. I did continue him on CIWA; however, he was already started on CIWA when he was hospitalized on the medical unit on September 25, so by September 30 patient was scoring 0 on the CIWA; however, he was still asking for p.r.n. Ativan and he said that he is supposed to be on morphine and Percocet prescribed to him by a primary care physician in [facility] and based on the cross addiction and his extensive history of alcohol abuse, he did agree to start Neurontin for chronic pain and also for alcoholism. Patient was having issue with his son, who stated that he did kick him out of the house as he was drinking up to a fifth of hard liquor on daily basis. Our social worker clinical met with the son and it seems that he is willing to take his father back to stay with him at home and the patient is willing to continue abstinence from alcohol. Mental status examination at the time of the discharge: Patient is casually dressed, poor grooming, speech is spontaneous, coherent, thought process it is linear and goal directed. He denied any homicidal or suicide ideation, intent or plan. He does not feel hopeless or helpless. He does not have any access to firearms. There is no evidence of psychosis. His insight regarding his alcohol use is slightly better. Cognitive abilities have remained stable across his hospitalization. There is no verbal or physical aggression noted on the unit. Patient was ready to be discharged to pursue outpatient dual diagnosis and he will stay with his son. PLAN: 1. Patient was discharged from the mental health unit today. He was given one month prescription for escitalopram 20 mg daily for depression and anxiety. 2. Mirtazapine 30 mg at bedtime for sleep and anxiety. 3. Gabapentin or Neurontin 200 mg twice a day for one month for anxiety, chronic pain and also for alcoholism. 4. Patient to follow up with his primary care physician regarding his medical management of his coronary artery disease, hyperlipidemia, hypertension, and renal disease. Patient to follow up with Physical Therapy regarding his gait as currently he is walking with a cane. Patient has to maintain abstinence from alcohol and any benzodiazepine. Patient was in referred to outpatient counseling for depression and alcoholism. Prognosis guarded as the patient has very limited insight to his drinking program and he is use for opium pain medication.
[2016-10-06] MEDS: THIAMINE 100 MG TAB PO SCH (09:46)
[2016-10-06] MEDS: METOPROLOL TARTRATE 50 MG TAB PO SCH (09:46)
[2016-10-06] MEDS: CLOPIDOGREL 75 MG TAB PO SCH (09:46)
[2016-10-06] MEDS: ESCITALOPRAM 20 MG TAB PO SCH (09:46)
[2016-10-06] MEDS: LISINOPRIL 10 MG TAB PO SCH (09:46)
[2016-10-06] MEDS: PANTOPRAZOLE 40 MG TABLET PO SCH (09:46)
[2016-10-06] MEDS: GABAPENTIN 100 MG CAP PO SCH (09:46)
[2016-10-06] MEDS: NICOTINE 14MG/24HR PATCH TRANSDERM SCH (09:46)
[2016-10-06] MEDS: COLLAGENASE 250 UNIT/GM OINTMENT 30 GM TUBE TOPICAL SCH (09:46)
[2016-10-06 10:33] VITALS: BP 113/82; PULSE 74
[2016-10-06] MEDS: FOLIC ACID 1 MG TAB PO SCH (12:38)
--- NOTE | 2016-10-06 13:29 | XR ---
EXAMINATION TYPE: XR chest 2V DATE OF EXAM: 10/06/2016 12:49 PM COMPARISON: 09/23/2016 HISTORY: COPD FINDINGS: The lungs are clear and there is no pneumothorax, pleural effusion, or focal pneumonia. Hyperinflati on suggests COPD. Degenerative change of the spine noted. Postsurgical changes seen. IMPRESSION: 1. Correlate for COPD
[2016-10-06] MEDS ORDERED: SODIUM CHLORIDE 0.9% 1,000 ML IV ONE (14:25)
[2016-10-06 14:38] LABS: CH 29.2; CHCM 30.4; HCT 37.7 % (39.0-53.0); HDW 2.55; HGB 11.7 gm/dL (13.0-17.5); Hypochromasia Moderate; MCH 29.8 pg (25.0-35.0); MCV 96.2 fL (80.0-100.0); Mean Platelet Volume 8.9; RBC 3.92 m/uL (4.30-5.90); RDW 14.5 % (11.5-15.5); WBC 8.4 k/uL (3.8-10.6)
[2016-10-06] MEDS ORDERED: LEVOFLOXACIN 500 MG TAB PO SCH (15:15)
[2016-10-06 15:17] LABS: Calcium 9.6 mg/dL (8.4-10.2)
[2016-10-06 15:21] LABS: Potassium 5.3 mmol/L (3.5-5.1)
[2016-10-06] MEDS: HYDROcodone/APAP 7.5-325MG 1 EACH TAB PO PRN (15:34)
[2016-10-06] MEDS: LORazepam 0.5 MG TAB PO PRN (15:35)
--- NOTE | 2016-10-06 15:46 | NM ---
EXAMINATION TYPE: NM pul vent and perfuse DATE OF EXAM: 10/06/2016 9:20 AM COMPARISON: Chest x-ray 10/06/2016 HISTORY: Shortness of breath TECHNIQUE: Utilizing inhalation of 69.0 mCi Tc 99m DTPA aerosol and intravenous injection of 5.5 mCi of Tc 99m MAA, ventilation and perfusion images are acquired post injection in multiple projections. FINDINGS: There are matched defects seen involving both lungs. Small segmental multiple defects are noted. IMPRESSION: Intermediate probability for pulmonary embolism.
[2016-10-06] MEDS ORDERED: LEVOFLOXACIN 250 MG TAB PO SCH (19:00)
--- NOTE | 2016-10-07 09:57 | DS ---
ADDENDUM: DATE OF ADMISSION: 09/29/2016 DATE OF DISCHARGE: 10/06/2016 Please refer to my dictation on October 05, 2016. After the patient was mentally stable to be discharged home, after lunch he started complaining of numbness, feeling dizzy, lightheaded, so we did order consultation STAT as the patient had extensive history of cardiac problem. Patient was seen on October 05, [address] Cochran and according to his assessment, he stated that the patient needs to be at least for 24 hour under observation. In addition, he did order STAT CBC, d-dimer, CMP. The d-dimer was positive so he did recommend CT angiogram of the chest. We did also stat EKG. Patient was very upset and frustrated as we did postpone his discharge based on Dr. Cochran's recommendation to keep the patient under observation for 24 hours and he did ask for more than one time and that he needs to be transferred to the medical floor or the cardiac unit for close observation. His labs today, it was his red blood cells dropped from 4.4 on October 05 to 3.922. Also, hemoglobin dropped from 12.8 to 11.7. His potassium was between 5.6 to 5.3. BUN is high, it was 58 with creatinine 2. On this result, we reconsulted the hospitalist. Also, we did order chest x-ray and the result it was correlated with COPD. The results for pulmonary perfusion was pending at the time of the dictation. Patient was transferred to the observation unit for abnormal labs. DISCHARGE DIAGNOSES: 1. Depressive disorder, not otherwise specified. 2. Alcohol abuse and dependence. 3. Opiate use disorder. 4. Abnormal labs, status post cardiac bypass. 5. Chronic kidney disease stage III, rule out renal phenomenon or ( ) phenomenon. PLAN: Patient was discharged from the mental health unit today. Patient was transferred to the observation unit for abnormal labs. Patient was given one-month supply for mirtazapine, 33 mg at bedtime; escitalopram 20 mg daily and Neurontin or gabapentin for alcoholism and anxiety. There is no eminent safety risk and patient can be discharged home to outpatient care when he is medically stable.
== END 2016-10-06 16:09 | disposition home or self-care (01) | DRG 881 ==
LOC: 3MHU 10:17
PROVIDERS: ADMIT Psychiatry & Neurology Psychiatry; ATTEND Psychiatry & Neurology Psychiatry
DX: F32.9 Major depressive disorder, single episode, unspecified (principal); E87.1 Hypo-osmolality and hyponatremia; R45.851 Suicidal ideations; I12.9 Hypertensive chronic kidney disease with stage 1 through stage 4 chronic kidney disease, or unspecified chronic kidney disease; N18.3 Chronic kidney disease, stage 3 (moderate); E78.5 Hyperlipidemia, unspecified; G89.29 Other chronic pain; I25.10 Atherosclerotic heart disease of native coronary artery without angina pectoris; I25.2 Old myocardial infarction; D63.8 Anemia in other chronic diseases classified elsewhere; J44.9 Chronic obstructive pulmonary disease, unspecified; M41.9 Scoliosis, unspecified; F10.20 Alcohol dependence, uncomplicated; F11.90 Opioid use, unspecified, uncomplicated; F17.200 Nicotine dependence, unspecified, uncomplicated; F41.9 Anxiety disorder, unspecified; R09.02 Hypoxemia; K29.70 Gastritis, unspecified, without bleeding; Z95.1 Presence of aortocoronary bypass graft; Z79.02 Long term (current) use of antithrombotics/antiplatelets; Z79.82 Long term (current) use of aspirin; Z79.899 Other long term (current) drug therapy
CPT/HCPCS: 71020; 78582; 80048; 80053; 84484; 85025; 85027; 85379; 93005

== ENCOUNTER 2016-10-06 14:39 | Observation (INO) | payer MEDICARE ==
[2016-10-06] MEDS ORDERED: NITROGLYCERIN SL TABS 0.4 MG TAB SUBLINGUAL PRN (16:26)
[2016-10-06] MEDS ORDERED: SODIUM CHLORIDE 0.9% 1,000 ML IV SCH (16:30)
--- NOTE | 2016-10-06 16:55 | CT ---
EXAMINATION TYPE: CT brain wo con DATE OF EXAM: 10/06/2016 4:49 PM COMPARISON: NONE HISTORY: C/O left sided weakness. CT DLP: 1047.1 mGycm Automated exposure control for dose reduction was used. FINDINGS: There is no acute intracranial hemorrhage, mass effect, or midline shift identified. The ventricles and sulci are consistent with mild degenerative change of the greater frontal lobe component. Faint p eriventricular hypodensity likely related to remote chronic vascular ischemia.. There is moderate left Dillon sinusitis. IMPRESSION: No acute intracranial hemorrhage, mass effect, or midline shift is seen. Moderate left maxillary sinusitis which may have an acute component, correlate clinically.
[2016-10-06 17:30] VITALS: BMI 22.8
--- NOTE | 2016-10-06 17:33 | US ---
EXAMINATION TYPE: US carotid duplex BILAT DATE OF EXAM: 10/06/2016 5:10 PM COMPARISON: NONE CLINICAL HISTORY: c/o left sided weakness. numbness EXAM MEASUREMENTS: RIGHT: Peak Systolic Velocity (PSV) cm/sec ----- Right CCA: 82.3 ----- Right ICA: 90.5 ----- Right ECA: 69.1 ICA/CCA ratio: 1.1 RIGHT: End Diastole cm/sec ----- Right CCA: 34.0 ----- Right ICA: 36.1 ----- Right ECA: 17.5 LEFT: Peak Systolic Velocity (PSV) cm/sec ----- Left CCA: 60.1 ----- Left ICA: 57.5 ----- Left ECA: 74.6 ICA/CCA ratio: 1.0 LEFT: End Diastole cm/sec ----- Left CCA: 23.5 ----- Left ICA: 22.6 ----- Left ECA: 18.6 VERTEBRALS (direction of flow): Right Vertebral: Antegrade Left Vertebral: Antegrade TECHNOLOGIST IMPRESSION: Bilateral wall thickening. No significant stenosis or elevated velocities seen. Plaque observed in bilateral bulbs. Grayscale, color Doppler, spectral Doppler imaging performed of the carotid arteries IMPRESSION: No hemodynamic significant stenosis of the proximal internal carotid arteries bilaterall y by Doppler criteria, and indirect measurement of carotid stenosis Criteria for Assigning % of Stenosis / Diameter reduction (Estimation based on the indirect measurements of the internal carotid artery velocities (ICA PSV). 1. Normal (no stenosis)=ICA PSV < 125 cm/s: ratio < 2.0: ICA EDV<40 cm/s. 2. Less than 50% stenosis=ICA PSV < 125 cm/s: ratio < 2.0: ICA EDV<40 cm/s. 3. 50 to 69% stenosis=ICA PSV of 125 to 230 cm/s: ration 2.0 ? 4.0: ICA EDV 40-100 cm/s. 4. Greater than 70% stenosis to near occlusion= ICA PSV > 230 cm/s: ratio > 4.0: ICA EDV > 100 cm/s. 5. Near occlusion= ICA PSV velocities may be low or undetectable: variable ratio and ICA EDV. 6. Total occlusion=unable to detect flow.
[2016-10-06] MEDS: NICOTINE 14MG/24HR PATCH TRANSDERM SCH (18:57)
[2016-10-06] MEDS ORDERED: HYDROcodone/APAP 7.5-325MG 1 EACH TAB PO PRN (19:50)
[2016-10-06] MEDS ORDERED: traMADol 50 MG TAB PO PRN (19:50)
[2016-10-06] MEDS ORDERED: SODIUM CHLORIDE 0.9% 1,000 ML IV ONE (19:52)
[2016-10-06] MEDS: GABAPENTIN 100 MG CAP PO SCH (20:51)
[2016-10-06] MEDS: METOPROLOL TARTRATE 50 MG TAB PO SCH (20:51)
[2016-10-06] MEDS ORDERED: ATORVASTATIN 40 MG TAB PO SCH (21:00)
--- NOTE | 2016-10-06 22:56 | HP ---
DATE OF ADMISSION: 10/06/2016 Patient is a 60 -year-old gentleman I am transferring him to observation unit from a psychiatric unit, as he is psychiatrically cleared to be discharged. Although there are some issues that are going on with the patient, the patient is complaining of left sided tingling and numbness and the patient is known for malingering and the patient in the past complained of chest pain. Patient has ( ) complained of chest pain as well as bluish discoloration of his fingers and patient had recent cardiac catheterization which showed clean coronaries. The patient also underwent ( )scan which was negative. Chest x-ray did not show any pneumonic process, although the patient has elevated ( ) because of the Lisinopril, patient was ( ). Lisinopril ( ) not ( ) I am discontinuing Lisinopril and I will start him on IV fluids. The patient's Creatinine has gone up to 1.9. Repeat creatinine has gone up even higher. His renal dysfunction and ( ) is multifactorial, secondary to intervascular volume depletion, Lisinopril with ( ) contribution from Lisinopril and hypotension. The patient is actually hypotensive systolic in the 90s. Because of which Lisinopril was discontinued. The patient has multiple other medical problems. He does have coronary artery disease, the patient is complaining of tingling and numbness in the left side of the body without any weakness because of which I am going to get a carotid Doppler and CT scan of the head was done which is negative. Carotid Doppler was negative. Neurology will be consulted and patient will be hydrated. We will give a bolus of IV fluids. Patient has an elevated lactic acid secondary to intravascular volume depletion. The patient will be started on IV fluids at 125 per hour and after that ( ) electrolytes and kidney function tomorrow. REVIEW OF SYSTEMS: CONSTITUTIONAL: No fever, no malaise, no fatigue. HEENT: No recent visual problems or hearing problems. Denied any sore throat. CARDIOVASCULAR: As described in HPI. PULMONARY: No shortness of breath, no cough, no hemoptysis. GASTROINTESTINAL: No diarrhea, no nausea, no vomiting, no abdominal pain. Normoactive bowel sounds. NEUROLOGICAL: As described in HPI. HEMATOLOGICAL: Denies any bleeding or petechiae. GENITOURINARY: Denies any burning micturition, frequency, or urgency. MUSCULOSKELETAL/RHEUMATOLOGICAL: Denies any joint pain, swelling, or any muscle pain. ENDOCRINE: Denies any polyuria or polydipsia. The rest of the 14 point review of systems is negative. PAST MEDICAL HISTORY: The patient although has an extensive past medical history multiple hospitalizations for alcohol abuse, alcohol withdrawals, and history of coronary artery disease, hyperlipidemia, hypertension, myocardial infarction, CKD stage II. Baseline creatinine is around one, appendectomy, back surgery, coronary artery bypass grafting orthopedic surgeries in the past, depression. FAMILY HISTORY: Significant for myocardial infarction. Father of myocardial infarction. The patient continues to smoke a pack per day, continues to drink heavily. Does use medical marijuana. PHYSICAL EXAMINATION: Temperature 98.2, pulse of 63, respiratory rate of 16, blood pressure 137/87. Saturating at 98% on room air. GENERAL: The patient is alert and oriented x3, not in any acute distress. Well developed, well nourished. HEENT: Pupils are round and equally reacting to light. EOMI. No scleral icterus. No conjunctival pallor. Normocephalic, atraumatic. No pharyngeal erythema. No thyromegaly. CARDIOVASCULAR: S1 and S2 present. No murmurs, rubs, or gallops. PULMONARY: Chest is clear to auscultation, no wheezing or crackles. ABDOMEN: Soft, nontender, nondistended, normoactive bowel sounds. No palpable organomegaly. MUSCULOSKELETAL: No joint swelling or deformity. EXTREMITIES: No cyanosis, clubbing, or pedal edema. NEUROLOGICAL: Gross neurological examination did not reveal any focal deficits. SKIN: No rashes. LABORATORY DATA: Significant ones are discussed and patient does not have any leukocytosis. Hemoglobin remains stable. ASSESSMENT AND PLAN: 1. Tingling and numbness in the left side of the body, patient is already on aspirin and Plavix and losartan. Carotid Doppler is negative. My suspicion is low for ( ) or a stroke. We will was also consult Dr. Booth. 2. Acute renal failure due to intravascular depletion. Lisinopril with hypotension contributing to his symptoms. 3. Patient was complaining of bluish discoloration which I did not see today. Patient was diagnosed with ( ) the patient is not on a calcium channel blockers, ( ) I will not start him on any calcium channel blockers at this point of time. Patient might as well have Raynaud's although he does not have any symptoms at this point of time. 4. Nicotine abuse, counselling was provided. 5. Chest pain, ruled out ( ) the patient had recent cardiac catheterization, which was negative. Patient chest pain was atypical in nature. Patient was evaluated multiple times in the past and patient denied any chest pain. 6. Polysubstance abuse. 7. Alcohol abuse. 8. Narcotic abuse behavior. 9. Chronic obstructive pulmonary disease without any acute exacerbation. 10. Hyperkalemia secondary to acute renal failure and Lisinopril. 11. Lactic acidosis secondary to intravascular volume depletion. PLAN: IV hydration as mentioned earlier. Evaluation for stroke, although my suspicion is low for any ( ) stroke.
[2016-10-07 06:59] LABS: Basophils # (A) 0.1 k/uL (0-0.2); Basophils % (A) 1 %; CH 29.7; CHCM 31.7; Eosinophils # (A) 0.3 k/uL (0-0.7); Eosinophils % (A) 4 %; HCT 36.2 % (39.0-53.0); HDW 2.61; HGB 11.3 gm/dL (13.0-17.5); Hypochromasia Slight; Luc % (Auto) 3; Lymphocytes # (A) 2.3 k/uL (1.0-4.8); Lymphocytes % (A) 30 %; MCH 29.3 pg (25.0-35.0); MCHC 31.2 g/dL (31.0-37.0); MCV 93.9 fL (80.0-100.0); Mean Platelet Volume 8.2; Monocytes # (A) 0.6 k/uL (0-1.0); Monocytes % (A) 8 %; Neutrophils # (A) 4.1 k/uL (1.3-7.7); Neutrophils % (A) 55 %; RBC 3.85 m/uL (4.30-5.90); RDW 14.5 % (11.5-15.5); WBC 7.5 k/uL (3.8-10.6); WBC (Perox) 7.86
[2016-10-07 07:07] LABS: Calcium 9.2 mg/dL (8.4-10.2); Magnesium 1.8 mg/dL (1.6-2.3); Potassium 4.8 mmol/L (3.5-5.1)
[2016-10-07] MEDS ORDERED: PANTOPRAZOLE 40 MG TABLET PO SCH (07:30)
[2016-10-07 08:04] VITALS: RESP 18
[2016-10-07] MEDS ORDERED: ESCITALOPRAM 20 MG TAB PO SCH (09:00)
[2016-10-07] MEDS ORDERED: COLLAGENASE 250 UNIT/GM OINTMENT 30 GM TUBE TOPICAL SCH (09:00)
[2016-10-07] MEDS ORDERED: ASPIRIN 325 MG TAB PO SCH (09:00)
[2016-10-07] MEDS ORDERED: CLOPIDOGREL 75 MG TAB PO SCH (09:00)
[2016-10-07] MEDS: NICOTINE 14MG/24HR PATCH TRANSDERM SCH (09:39)
[2016-10-07] MEDS: GABAPENTIN 100 MG CAP PO SCH (09:39)
[2016-10-07] MEDS: METOPROLOL TARTRATE 50 MG TAB PO SCH (09:47)
[2016-10-07] MEDS ORDERED: THIAMINE 100 MG TAB PO SCH (12:00)
[2016-10-07] MEDS ORDERED: FOLIC ACID 1 MG TAB PO SCH (12:00)
[2016-10-07] MEDS ORDERED: SODIUM CHLORIDE 0.9% 1,000 ML IV ONE (12:33)
[2016-10-07 15:22] VITALS: BP 141/85; PULSE 55; TEMP 97.8
--- NOTE | 2016-10-08 08:45 | DS ---
DATE OF ADMISSION: 10/06/2016 DATE OF DISCHARGE: 10/07/2016 The patient is a 60-year-old I transferred him from psychiatric unit because of complaints of left-sided tingling and numbness, which completed resolved at this point of time. Patient had a carotid Doppler, which was essentially within normal limits. Patient's creatinine improved to 1.74. I will given him a 1 L of bolus before he is discharge and I will ask him to hold off lisinopril today and tomorrow. Can be resumed in 2 days. By that time, I am hoping that his kidney function will improve. Patient is otherwise clinically doing well. His symptoms of left sided arm pain completely resolved. Patient does not have any GI bleed, although he was complaining of that yesterday. His hemoglobin remains stable compared to yesterday. Patient was seen and examined on the day of discharge. Vitals are stable. PHYSICAL EXAMINATION: GENERAL: The patient is alert and oriented x3, not in any acute distress. Well developed, well nourished. HEENT: Pupils are round and equally reacting to light. EOMI. No scleral icterus. No conjunctival pallor. Normocephalic, atraumatic. No pharyngeal erythema. No thyromegaly. CARDIOVASCULAR: S1 and S2 present. No murmurs, rubs, or gallops. PULMONARY: Chest is clear to auscultation, no wheezing or crackles. ABDOMEN: Soft, nontender, nondistended, normoactive bowel sounds. No palpable organomegaly. MUSCULOSKELETAL: No joint swelling or deformity. EXTREMITIES: No cyanosis, clubbing, or pedal edema. NEUROLOGICAL: Gross neurological examination did not reveal any focal deficits. SKIN: No rashes. ASSESSMENT AND PLAN: 1. Tingling and numbness on the body to rule out transient ischemic attack. I do believe patient has a transient ischemic attack. Patient is anyways on aspirin and Plavix already for his heart issues. 2. Acute renal failure due to intravascular volume depletion, which improved with IV fluids. I will give him more IV fluids before he is discharged later in the day today. 3. Possible Raynaud's. Because of hypotension issues, I will not start him on amlodipine at this point of time. 4. Nicotine abuse. 5. Alcohol abuse history. 6. Narcotic abuse behavior. 7. Chronic obstructive pulmonary disease without any acute exacerbation. 8. Hyperkalemia. 9. Lactic acidosis due to intravascular volume depletion and dehydration, which improved. Please refer to my depart summary for further details of discharge medications. Activity as tolerated. Patient will follow with his physician outside the town. Cardiac diet. Nicotine cessation and alcohol cessation counseling was provided. Patient will not require any home care or home physical therapy at this time. Patient is able to ambulate well with a cane. Spent greater than 35 minutes in total discharge process.
== END 2016-10-07 16:17 | disposition home or self-care (01) ==
LOC: 3OBS 16:11
PROVIDERS: ADMIT Internal Medicine; ATTEND Internal Medicine
DX: G45.9 Transient cerebral ischemic attack, unspecified (principal); N17.9 Acute kidney failure, unspecified; E86.0 Dehydration; E87.2 Acidosis; I95.9 Hypotension, unspecified; F17.210 Nicotine dependence, cigarettes, uncomplicated; F10.10 Alcohol abuse, uncomplicated; F11.10 Opioid abuse, uncomplicated; I12.9 Hypertensive chronic kidney disease with stage 1 through stage 4 chronic kidney disease, or unspecified chronic kidney disease; N18.2 Chronic kidney disease, stage 2 (mild); I25.10 Atherosclerotic heart disease of native coronary artery without angina pectoris; I25.2 Old myocardial infarction; J44.9 Chronic obstructive pulmonary disease, unspecified; E87.5 Hyperkalemia; Z95.1 Presence of aortocoronary bypass graft; Z79.02 Long term (current) use of antithrombotics/antiplatelets; Z79.82 Long term (current) use of aspirin; Z79.899 Other long term (current) drug therapy
CPT/HCPCS: 80061; 80048; 83735; 85025; 93880; 70450; G0378 ×2; G0379; S4990 ×2

== ENCOUNTER 2016-10-08 17:50 | Emergency (ER) | payer MEDICARE ==
[2016-10-08 18:20] VITALS: RESP 18
--- NOTE | 2016-10-08 20:13 | ED ---
Psych HPI - General Chief Complaint: Psychiatric Symptoms Stated Complaint: mental health Time Seen by Provider: 10/08/16 18:33 Source: patient, RN notes reviewed Mode of arrival: ambulatory Limitations: no limitations - History of Present Illness Initial Comments: 6-year-old male presents emergency department for psychiatric evaluation. Patient states he was recently just released yesterday. Patient states he does not have his medications and states that he felt very anxious and down. Patient states that he's had suicidal thoughts in the past but states is not suicidal at this time. Patient denies any physical complaints. Patient denies fever, chills. Patient denies any chest pain, shortness breath, nausea vomiting diarrhea constipation. Patient denies any illicit drug use or any alcohol use at this time. - Related Data Home Medications Medication Instructions Recorded Confirmed HYDROcodone/APAP 7.5-325MG [[place] 1 tab PO TID PRN 10/06/16 10/08/16 7.5-325] Previous Rx's Medication Instructions Recorded Collagenase [Santyl] 1 applic TOPICAL DAILY #1 tube 08/13/16 Thiamine [Vitamin B-1] 100 mg PO DAILY #30 tablet 08/28/16 Aspirin EC [Ecotrin Low Dose] 81 mg PO DAILY #1 tablet. 09/07/16 Atorvastatin [Lipitor] 40 mg PO HS tab 09/21/16 Clopidogrel [Plavix] 75 mg PO DAILY tab 09/21/16 Metoprolol Tartrate [Lopressor] 50 mg PO BID tab 09/21/16 Escitalopram [Lexapro] 20 mg PO DAILY 30 Days 10/05/16 Folic Acid 1 mg PO DAILY@1200 tab 10/05/16 Gabapentin [Neurontin] 200 mg PO BID 30 Days 10/05/16 Mirtazapine [Remeron] 30 mg PO HS 30 Days 10/05/16 Pantoprazole [Protonix] 40 mg PO AC-[id number] tablet. 10/05/16 LORazepam [Ativan] 0.5 mg PO Q8HR PRN #0 tab 10/06/16 Nicotine 14Mg/24Hr Patch [Habitrol] 1 patch TRANSDERM DAILY patch 10/06/16 Nitroglycerin Sl Tabs [Nitrostat] 0.4 mg SUBLINGUAL Q5M PRN 21 Days 10/06/16 Allergies Allergy/AdvReac Type Severity Reaction Status Date / Time No Known Allergies Allergy Verified 10/08/16 18:20 Review of Systems ROS Statement: Those systems with pertinent positive or pertinent negative responses have been documented in the HPI. ROS Other: All systems not noted in ROS Statement are negative. Past Medical History Past Medical History: Coronary Artery Disease (CAD), Eye Disorder, Hyperlipidemia, Hypertension, Myocardial Infarction (NM), Renal Disease Additional Past Medical History / Comment(s): Alcoholism, CKD stage III, gastritis, chronic cervical and back pain, R eye injury with surgery-limited sight. Last Myocardial Infarction Date:: june 2016 History of Any Multi-Drug Resistant Organisms: None Reported Past Surgical History: Appendectomy, Back Surgery, Coronary Bypass/CABG, Orthopedic Surgery Additional Past Surgical History / Comment(s): L shoulder surgery, colonoscopy, R eye lens surgery due to injury, 06/2016 cath with perforation of the RCA during PCI resulting vessel bypass and pericardiocentesis-pt states he believes he had triple bypass. Past Anesthesia/Blood Transfusion Reactions: No Reported Reaction Past Psychological History: Depression Additional Psychological History / Comment(s): Pt currently is living in a motel. [place] He [place] not drive. He gets to [employer] by cab or his son takes him. Smoking Status: Current every day smoker Past Alcohol Use History: Daily Additional Past Alcohol Use History / Comment(s): Pt states he likes to drink a pint of vodka a day. He started smoking in 1969 and is a 1/2 ppd smoker. Past Drug Use History: Marijuana Additional Drug Use History / Comment(s): Pt states he smokes 2 joints per day for pain control. He states he has medical [employer] card. - Past Family History Father Family Medical History: Myocardial Infarction (NM) Additional Family Medical History / Comment(s): Father of a NM at the age of 71 yrs. Mother Family Medical History: Cancer Additional Family Medical History / Comment(s): Mother had breast cancer-bone cancer and at the age of 65 yrs. General Exam Limitations: no limitations General appearance: alert, in no apparent distress Head exam: Present: atraumatic, normocephalic, normal inspection Eye exam: Present: normal appearance, PERRL, EOMI. Absent: scleral icterus, conjunctival injection, periorbital swelling ENT exam: Present: normal exam, normal oropharynx, mucous membranes moist, TM's normal bilaterally, normal external ear exam Neck exam: Present: normal inspection, full ROM. Absent: tenderness, meningismus, lymphadenopathy Respiratory exam: Present: normal lung sounds bilaterally. Absent: respiratory distress, wheezes, rales, rhonchi, stridor Cardiovascular Exam: Present: regular rate, normal rhythm, normal heart sounds. Absent: systolic murmur, diastolic murmur, rubs, gallop, clicks GI/Abdominal exam: Present: soft, normal bowel sounds. Absent: distended, tenderness, guarding, rebound, rigid Neurological exam: Present: alert, oriented X3, CN II-XII intact Psychiatric exam: Present: anxious Course Vital Signs 10/08/16 18:16 Temperature 98.0 F Pulse Rate 69 Respiratory 18 Rate Blood Pressure 176/115 O2 Sat by Pulse 97 Oximetry Medical Decision Making - Medical Decision Making 6-year-old male presented for psychiatric evaluation. Patient was noted by EPS. They do feel patient is stable and he is ready for discharge. Patient's case was discussed with psychiatrist they do not recommend any further medications. Return parameters were discussed Disposition Clinical Impression: Acute anxiety, Depression Disposition: HOME SELF-CARE Condition: Stable Instructions: Generalized Anxiety Disorder (ED) Additional Instructions: Please return to the Emergency Department if symptoms worsen or any other concerns. Time of Disposition: 20:12
[2016-10-08 20:32] VITALS: BP 176/108; PULSE 76; TEMP 97.4
== END 2016-10-08 20:32 | disposition home or self-care (01) ==
LOC: EC 17:50
DX: F41.9 Anxiety disorder, unspecified (principal); F32.9 Major depressive disorder, single episode, unspecified; Z95.1 Presence of aortocoronary bypass graft; F17.200 Nicotine dependence, unspecified, uncomplicated; I25.2 Old myocardial infarction; E78.5 Hyperlipidemia, unspecified; I10 Essential (primary) hypertension; Z79.899 Other long term (current) drug therapy; Z79.82 Long term (current) use of aspirin; Z79.02 Long term (current) use of antithrombotics/antiplatelets
CPT/HCPCS: 82075; 99283